=== PATIENT | male | born 1960 | race Caucasian/White ===

== ENCOUNTER 2024-05-28 21:09 | Inpatient (IN) | payer MEDICAID, OTHER, SELFPAY ==
[2024-05-28] VITALS (11 sets, daily range): BP systolic 138–157; BP diastolic 54–72; PULSE 99–105; RESP 18–25; TEMP 36.4–37.1; O2SAT 90–96; BMI 38.4
[2024-05-28 22:28] LABS: Add Manual Diff / Slide Review NO; Basophils Absolute Auto 100 /uL (0-100); Basophils Percent Auto 0.9 % (0-2); Eosinophils Absolute Auto 200 /uL (0-450); Eosinophils Percent Auto 2.8 % (2-4); Hemoglobin 5.3 g/dL (13.5-17.5); Lymphocytes Absolute Auto 800 /uL (1100-4500); Lymphocytes Percent Auto 11.2 % (25-40); Mean Corpuscular HGB Conc 28.3 % (30-36); Mean Corpuscular Hemoglobin 20.4 PG (26-34); Mean Corpuscular Volume 72.4 fL (80-100); Monocytes Absolute Auto 500 /uL (0-900); Monocytes Percent Auto 6.9 % (3-14); Neutrophils Absolute Auto 5400 /uL (1500-7000); Neutrophils Percent Auto 78.2 % (50-75); Platelet Count 468 X10^3/uL (150-400); Red Blood Cell Count 2.57 X10^6/uL (4.5-5.9); Red Cell Distribution Width 20.1 % (11.6-14.8); White Blood Cell Count 6.9 X10^3/uL (4.5-11.0)
[2024-05-28 22:29] LABS: Hematocrit 18.6 % (41-53)
[2024-05-28 22:30] LABS: Blood Urea Nitrogen 28 mg/dL (9-20); Calcium 8.8 mg/dL (8.4-10.2); Carbon Dioxide 28 mmol/L (22-32); Chloride 103 mmol/L (98-107); Estimated Glomerular Filt Rate 43 mL/min (>60); Glucose 166 mg/dL (80-110); HEMOLYSIS < 15 (0-50); Potassium 3.5 mmol/L (3.4-5.1); Sodium 135 mmol/L (137-145)
--- NOTE | 2024-05-28 22:34 | ED.RECABL ---
HPI - Recheck/Abnormal Lab/Rx General Chief Complaint: Recheck/Abnormal Lab/Rx Stated Complaint: hemogloubin low Time Seen by Provider: 05/28/24 22:11 Source: patient and family Mode of arrival: Ambulatory Limitations: no limitations History of Present Illness HPI narrative: Patient was a 63-year-old male. Not on anticoagulation. Has a history of chronic kidney disease. Went to the lab today in order to get blood drawn for an upcoming urology visit. Received a phone call stating that his hemoglobin and hematocrit were low and he needed to come to the emergency department. He does report that he is felt somewhat fatigued and weak and shortness of breath specifically on exertion for the past several months. He has been anemic in the past. Earlier this year he was admitted to an outside facility where he states that he had scopes without a specific source of bleeding found. He denies any black-colored stools, red colored stools, vomiting blood, blood in his urine. Related Data Allergies Allergy/AdvReac Type Severity Reaction Status Date / Time No Known Drug Allergies Allergy Verified 05/28/24 21:18 Review of Systems Review of Systems ROS Unobtainable: All systems reviewed & are unremarkable except as noted in HPI and below Patient History Social History Smoking Status: Never smoker Smoking Status: Never smoker Alcohol type: beer Exam Initial Vital Signs Initial Vital Signs: Vital Signs Temperature 98.7 F 05/28/24 21:18 Pulse Rate 103 H 05/28/24 21:18 Respiratory Rate 18 05/28/24 21:18 Blood Pressure 144/67 H 05/28/24 21:18 Pulse Oximetry 96 05/28/24 21:18 Oxygen Delivery Method Room Air 05/28/24 21:18 Const General: No ill appearing HENMT Head: normal to inspection and normocephalic Resp Effort & Inspection: no cough, not labored, no retractions and tachypneic Auscultation: clear to auscultation bilaterally Cardio Rate: tachycardic Rhythm: regular rhythm GI Inspection: normal to inspection and non-distended Palpation: soft and No tender Skin General: no rashes or lesions noted Neuro General: patient alert, patient awake and moves all extremities Extrem General: normal to inspection Course Orders Ordered: ED Orders 05/28/24 22:10 Basic Metabolic Panel Stat Complete Blood Count AUTO DIFF Stat Packed Cells Stat Type and Screen Stat 05/29/24 01:38 XR chest 1V Stat 05/29/24 01:44 Hemoglobin and Hematocrit Stat NT-proBNP (BNP-Adult 18+) Stat Troponin & CK Cardiac Panel Stat 05/29/24 01:45 EKG-12 Lead Stat 05/29/24 02:46 Education, smoking cessation ONGOING 05/29/24 02:55 Consult to General Surgery Stat 05/29/24 03:00 Basic Metabolic Panel DAILY Complete Blood Count AUTO DIFF DAILY Acetaminophen (Acetaminophen 325 Mg Tablet) 650 mg PO Q6H PRN PRN Reason: Fever/Mild Pain (1-3) Naloxone HCl (Naloxone 0.4 Mg/Ml Vial) 0.2 mg IV Q2MIN PRN PRN Reason: Opiate Reversal Pantoprazole Sodium (Pantoprazole 40 Mg Vial) 40 mg IV BID QUAN Discontinued Medications Furosemide (Furosemide 40 Mg/4 Ml Vial) 40 mg IV NOW ONE Stop: 05/29/24 02:57 Pantoprazole Sodium (Pantoprazole 40 Mg Vial) 40 mg IV NOW ONE Stop: 05/29/24 02:53 Vital Signs Vital signs: Vital Signs - 8 hr 05/28/24 21:18 05/28/24 22:20 05/28/24 22:21 Temperature 98.7 F Pulse Rate 103 H 102 H Respiratory Rate 18 25 H Blood Pressure 144/67 H Pulse Oximetry 96 90 L 91 Oxygen Delivery Method Room Air Room Air Room Air Oxygen Flow Rate 05/28/24 22:22 05/28/24 22:22 05/28/24 22:30 Temperature Pulse Rate 101 H Respiratory Rate Blood Pressure 138/63 140/63 Pulse Oximetry 91 Oxygen Delivery Method Room Air Oxygen Flow Rate 05/28/24 22:30 05/28/24 23:00 05/28/24 23:00 Temperature Pulse Rate 99 H 102 H Respiratory Rate 25 H 24 Blood Pressure 144/63 H Pulse Oximetry 94 96 Oxygen Delivery Method Nasal Cannula Nasal Cannula Oxygen Flow Rate 2 2 05/28/24 23:20 05/28/24 23:21 05/28/24 23:21 Temperature 98.5 F Pulse Rate 104 H 105 H Respiratory Rate 25 H Blood Pressure 157/72 H 157/72 H Pulse Oximetry 94 Oxygen Delivery Method Oxygen Flow Rate 05/28/24 23:30 05/28/24 23:30 05/28/24 23:39 Temperature 97.6 F Pulse Rate 104 H Respiratory Rate 24 23 Blood Pressure 139/54 L 142/63 H Pulse Oximetry 95 Oxygen Delivery Method Nasal Cannula Oxygen Flow Rate 2 05/28/24 23:42 05/29/24 00:00 05/29/24 00:01 Temperature Pulse Rate 103 H 98 H Respiratory Rate 22 Blood Pressure 135/61 Pulse Oximetry 94 92 Oxygen Delivery Method Nasal Cannula Oxygen Flow Rate 3 05/29/24 00:01 05/29/24 00:30 05/29/24 00:30 Temperature Pulse Rate 99 H 90 Respiratory Rate 21 Blood Pressure 147/63 H Pulse Oximetry 92 94 Oxygen Delivery Method Nasal Cannula Nasal Cannula Oxygen Flow Rate 3 3 05/29/24 01:00 05/29/24 01:01 05/29/24 01:01 Temperature Pulse Rate 76 88 Respiratory Rate 22 Blood Pressure 125/58 L Pulse Oximetry 92 93 Oxygen Delivery Method Nasal Cannula Oxygen Flow Rate 3 05/29/24 01:28 05/29/24 01:53 05/29/24 02:21 Temperature 98.7 F 98.6 F Pulse Rate 104 H 100 H Respiratory Rate 23 24 30 H Blood Pressure 136/61 124/56 L Pulse Oximetry 94 Oxygen Delivery Method Oximask Oxygen Flow Rate 3 05/29/24 02:25 05/29/24 02:41 Temperature 98.6 F 98.2 F Pulse Rate 100 H 96 H Respiratory Rate 30 H 26 H Blood Pressure 124/56 L 141/64 H Pulse Oximetry Oxygen Delivery Method Oxygen Flow Rate MDM - Recheck/Abnormal Lab/Rx Lab Data Attestation: I reviewed the patient's lab results. 05/29/24 01:44 05/28/24 22:10 Labs: Lab Results 05/28/24 05/29/24 Range/Units 22:10 01:44 WBC 6.9 (4.5-11.0) X10^3/uL RBC 2.57 L (4.5-5.9) X10^6/uL Hgb 5.3 L* 5.9 L* (13.5-17.5) g/dL Hct 18.6 L* 20.5 L* (41-53) % MCV 72.4 L (80-100) fL MCH 20.4 L (26-34) PG MCHC 28.3 L (30-36) % RDW 20.1 H (11.6-14.8) % Plt Count 468 H (150-400) X10^3/uL Neut % (Auto) 78.2 H (50-75) % Lymph % (Auto) 11.2 L (25-40) % [place] % (Auto) 6.9 (3-14) % Eos % (Auto) 2.8 (2-4) % Baso % (Auto) 0.9 (0-2) % Neut # (Auto) 5400 (5518-1155) /uL Lymph # (Auto) 800 L (4287-0265) /uL [place] # (Auto) 500 (0-900) /uL Eos # (Auto) 200 (0-450) /uL Baso # (Auto) 100 (0-100) /uL Platelet Estimate Increased on smear RBC Morphology See below Hypochromasia 2+ H Anisocytosis 2+ H Microcytosis 2+ H Macrocytosis 1+ H Sodium 135 L (137-145) mmol/L Potassium 3.5 (3.4-5.1) mmol/L Chloride 103 (98-107) mmol/L Carbon Dioxide 28 (22-32) mmol/L BUN 28 H (9-20) mg/dL Creatinine 1.75 H (0.66-1.25) mg/dL Estimated GFR 43 L (>60) mL/min BUN/Creatinine Ratio 16.0 (6-22) Glucose 166 H (80-110) mg/dL Calcium 8.8 (8.4-10.2) mg/dL Total Creatine Kinase 54 L (55-170) U/L Troponin I < 0.012 (0.01-0.034) ng/mL NT-Pro-B Natriuret Pep 848 H (<125) pg/mL Blood Type O Positive Antibody Screen Negative Crossmatch See Detail Imaging Data Chest x-ray: Radiologist's Impression: No acute cardiopulmonary abnormality ECG Data Attestation: I personally reviewed and interpreted this ECG as follows: Interpretation: Sinus tachycardia Ventricular rate of 101 Normal axis Normal QRS Normal QTC No ST T wave changes MDM Narrative Medical decision making narrative: Patient has no overt signs of bleeding. He was not had any melena. No hematochezia. No hematemesis. No hematuria. He was not on anticoagulation. Has been short of breath for the past several months. Received 1 unit of packed red blood cells. Still somewhat tachycardic and short of breath. Second unit ordered. He was not in overt heart failure. Chest x-ray shows no signs of pleural effusion or pneumonia. No indication for antibiotics. He was given a proton pump inhibitor. Patient is desatting into the 70s specifically with sleeping requiring oxygen by nasal cannula. I did discuss the case with hospitalist on-call who will admit for further evaluation and treatment. I did discuss the case with on-call for General surgery who would be available for consultation if needed. Discussed the need for admission with the patient's family. They expressed understanding and agreement as well. Discharge Plan Departure Patient Disposition: Admitted As Inpatient Clinical Impression: Anemia, Hypoxia Admit Date/Time: 05/29/24 02:56 Admit Provider: Hema Trevino
--- NOTE | 2024-05-28 22:34 | PC.NURSE ---
Patient's RR 25, patient unable to answer a full sentence without taking a break. Patient is pale. Oxygen sat 90% on RA. Patient placed on oxygen 2L nasal cannula, o2 sats improved to 94%
[2024-05-28 23:05] LABS: Anisocytosis 2+; Hypochromasia 2+; Macrocytosis 1+; Microcytosis 2+; Platelet Estimate Increased on smear
[2024-05-29] VITALS (34 sets, daily range): BP systolic 91–158; BP diastolic 43–69; PULSE 76–104; RESP 20–31; TEMP 36.3–37.1; O2SAT 90–97; BMI 38.4
--- NOTE | 2024-05-29 01:38 | DI.RAD.S_ITS ---
PROCEDURE: XR CHEST 1V INDICATIONS: SOB TECHNIQUE: One view of the chest was acquired. COMPARISON: None. FINDINGS: Surgical changes and devices: None. Lungs and pleura: Patchy bilateral atelectasis.. No pleural effusions or pneumothorax. Mediastinum: Mediastinal contours appear normal. Heart size is normal. Bones and chest wall: No suspicious bony lesions. Overlying soft tissues appear unremarkable. IMPRESSION: Patchy bilateral atelectasis. Dictated by: Noe Randhawa M.D. on 05/29/2024 at 8:30 Approved by: Noe Randhawa M.D. on 05/29/2024 at 8:31
--- NOTE | 2024-05-29 01:40 | PC.NURSE ---
This nurse notes pt is still tachycardic and tachypnic after 1 unit RBC has completed. Pt needing to be on 3L of oxygen on oximask to maintain sats at 94%. pt's RR is 24, breahting labored, unable to speak in full sentences. Dr. Sumner notified. Awaiting new orders.
[2024-05-29 01:56] LABS: Hematocrit 20.5 % (41-53); Hemoglobin 5.9 g/dL (13.5-17.5)
[2024-05-29 02:00] LABS: Creatine Kinase 54 U/L (55-170)
--- NOTE | 2024-05-29 02:03 | EKG_ITS ---
[address] [address] Test Date: 2024-05-29 Pat Name: Manuelito Sierra Department: [facility] Room: Gender: Male [employer]: JOVANI DEMETRIUS : 1960 Requested By: Order Number: [id number] Reading MD: Juan Mccormick Measurements Intervals [place] Rate: 101 P: 25 KS: 188 QRS: 10 QRSD: 98 T: 21 QT: 346 QTc: 448 Interpretive Statements Sinus tachycardia Electronically Signed On 05-29-2024 19:43:00 PST by Juan Mccormick
[2024-05-29 02:13] LABS: NT-proBNP (BNP-Adult 18+) 848 pg/mL (<125); Troponin I < 0.012 ng/mL (0.01-0.034)
[2024-05-29] MEDS: FUROSEMIDE 40 MG/4 ML VIAL IV (03:35)
[2024-05-29] MEDS: PANTOPRAZOLE 40 MG VIAL IV ×3 (03:44→20:26)
--- NOTE | 2024-05-29 04:18 | PC.NURSE ---
Addendum entered by Sarahy Menon R.N. 05/29/24 04:27: addendum to note at 0418 Patient transferred to room 223 with leukocyte reduced red blood cells running at 100ml/hr. Original Note: Patient transferred to room 223 with PRBC running at 100ml/hr
--- NOTE | 2024-05-29 04:20 | PC.NURSE ---
Pt arrived via stretcher to room 223. AOx3 with partner at bedside. 5L oximask sating 95%. Bases diminished. BLE edema +2. L wrist PIV with blood transfusing 100ml/hr. VS taken. Telemetry placed. Pt denies any n/v. Denies blood in stool. Baseline uses a quad cane, but sometimes uses WC at home. RUE flaccid, RLE weak. Dr Trevino notified pt has arrived and pending orders.
--- NOTE | 2024-05-29 06:32 | PM.HP.1 ---
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 Of note, the patient was in for lab today for a blood draw prior his upcoming nephrology visit. The patient receive a phone call afterward and was told that his hemoglobin was very low and instructed him to go to our ER. The patient reports that over the last few months he has been having fatigue and shortness of breath. The patient however denies any recent G.I. bleed denies any Melena or bright red blood rectum, chest pain, fever, chills, nausea, vomiting or diarrhea recently. Of note, the patient was admitted to [facility] in [place], [place] this November 2023 for severe anemia. There the patient's reported that he had an endoscopy but could did not show any source of GIB. of severe anemia with endoscopy but no source of bleeding was found. The patient was told to follow up with GI for a repeat Colonscopy and possible capsule study to investigate any GIB from small bowel but the patient states due to the holidays, this has not yet been done. In our emergency room, the patient was hemodynamically stable though was tachycardic. There was no active sign of bleeding per physician. Hemoglobin was 5.3 done as outpatient and 5.9 after 1 unit of pRBCs per our ER physician. patient BNPs was in the 800s, Cr 1.75. Note the chest x-ray was clear no sign of volume overload. Patient was given two units of blood and Lasix IV 40 mg times one. General surgery was consulted for back up if endoscopy/colonscopy is needed emergently. Our physician requested admission to monitor hemoglobin and for any bleeding. [facility] Social History household members: significant other Smoking Status: Never smoker alcohol intake: current Meds Home Medications and Allergies Home Medications Medication Instructions Recorded Confirmed Type amlodipine 10 mg tablet 10 mg PO DAILY 05/29/24 05/29/24 History aspirin 81 mg tablet 81 mg PO DAILY 05/29/24 05/29/24 History ferrous sulfate 325 mg (65 mg 325 mg PO DAILY 05/29/24 05/29/24 History iron) tablet metoprolol succinate 200 mg 200 mg PO DAILY 05/29/24 05/29/24 History tablet,extended release 24 hr torsemide 20 mg tablet 60 mg PO DAILY 05/29/24 05/29/24 History Allergies Allergy/AdvReac Type Severity Reaction Status Date / Time No Known Drug Allergies Allergy Verified 05/28/24 21:18 Review of Systems Review of Systems ROS: Yes All systems reviewed with the patient and are negative except as otherwise documented Exam Vital Signs (past 8 hours): - 05/28/24 23:00 05/28/24 23:00 05/28/24 23:20 Temperature 98.5 F Pulse Rate 102 H 104 H Respiratory Rate 24 25 H Blood Pressure 144/63 H 157/72 H Pulse Oximetry 96 Oxygen Delivery Method Nasal Cannula Oxygen Flow Rate 2 05/28/24 23:21 05/28/24 23:21 05/28/24 23:30 Temperature Pulse Rate 105 H Respiratory Rate 24 Blood Pressure 157/72 H 139/54 L Pulse Oximetry 94 Oxygen Delivery Method Oxygen Flow Rate 05/28/24 23:30 05/28/24 23:39 05/28/24 23:42 Temperature 97.6 F Pulse Rate 104 H 103 H Respiratory Rate 23 Blood Pressure 142/63 H Pulse Oximetry 95 94 Oxygen Delivery Method Nasal Cannula Oxygen Flow Rate 2 05/29/24 00:00 05/29/24 00:01 05/29/24 00:01 Temperature Pulse Rate 98 H 99 H Respiratory Rate 22 Blood Pressure 135/61 Pulse Oximetry 92 92 Oxygen Delivery Method Nasal Cannula Nasal Cannula Oxygen Flow Rate 3 3 05/29/24 00:30 05/29/24 00:30 05/29/24 01:00 Temperature Pulse Rate 90 76 Respiratory Rate 21 Blood Pressure 147/63 H Pulse Oximetry 94 92 Oxygen Delivery Method Nasal Cannula Nasal Cannula Oxygen Flow Rate 3 3 05/29/24 01:01 05/29/24 01:01 05/29/24 01:28 Temperature 98.7 F Pulse Rate 88 104 H Respiratory Rate 22 23 Blood Pressure 125/58 L 136/61 Pulse Oximetry 93 Oxygen Delivery Method Oxygen Flow Rate 05/29/24 01:53 05/29/24 02:00 05/29/24 02:19 Temperature Pulse Rate 101 H Respiratory Rate 24 29 H Blood Pressure 124/56 L Pulse Oximetry 94 92 Oxygen Delivery Method Oximask Oximask Oxygen Flow Rate 3 3 05/29/24 02:19 05/29/24 02:21 05/29/24 02:25 Temperature 98.6 F 98.6 F Pulse Rate 101 H 100 H 100 H Respiratory Rate 31 H 30 H 30 H Blood Pressure 124/56 L 124/56 L Pulse Oximetry 95 Oxygen Delivery Method Oximask Oxygen Flow Rate 3 05/29/24 02:30 05/29/24 02:41 05/29/24 02:43 Temperature 98.2 F Pulse Rate 101 H 96 H 96 H Respiratory Rate 29 H 26 H 24 Blood Pressure 141/64 H Pulse Oximetry 94 93 Oxygen Delivery Method Oximask Oxygen Flow Rate 3 05/29/24 02:43 05/29/24 03:00 05/29/24 03:10 Temperature Pulse Rate 99 H Respiratory Rate 22 Blood Pressure 141/64 H 158/65 H Pulse Oximetry 90 L Oxygen Delivery Method Oximask Oxygen Flow Rate 3 05/29/24 03:10 05/29/24 03:15 05/29/24 03:30 Temperature Pulse Rate 98 H 103 H Respiratory Rate 24 27 H Blood Pressure Pulse Oximetry 91 93 92 Oxygen Delivery Method Oximask Oximask Oximask Oxygen Flow Rate 4 5 5 05/29/24 03:31 05/29/24 03:31 05/29/24 04:00 Temperature Pulse Rate 104 H 101 H Respiratory Rate 27 H 26 H Blood Pressure 150/64 H Pulse Oximetry 93 Oxygen Delivery Method Oximask Oxygen Flow Rate 5 05/29/24 04:00 05/29/24 04:30 05/29/24 05:52 Temperature 97.9 F 97.5 F L Pulse Rate 97 H 90 Respiratory Rate 26 H 20 Blood Pressure 109/60 111/63 Pulse Oximetry 97 Oxygen Delivery Method Oximask Oxygen Flow Rate 5 Oxygen Delivery Method Oximask Oxygen Flow Rate 5 Narrative Exam Narrative: Physical Exam: GENERAL: The patient is not in any acute distressed. Awake and alert. on Oxygen mask HEENT: Nonicteric sclerae, PERRLA, EOMI. Oropharynx clear. Moist mucous membranes. Conjunctivae appear well perfused. HEART: Regular rate and rhythm without murmurs. No lower extremities edema. LUNGS: Clear to auscultation bilaterally. No wheezing, crackles or rhonchi ABDOMEN: Soft, positive bowel sounds, nontender. SKIN: No rash, no excessive bruising, petechiae, or purpura. NEUROLOGIC: AxO x 3. Known right sided weakness otehrwise Cranial nerves II-XII intact without motor/sensory deficit. Objective Labs 05/29/24 01:44 05/28/24 22:10 Labs: Laboratory Results - last 24 hr 05/28/24 05/29/24 22:10 01:44 WBC 6.9 RBC 2.57 L Hgb 5.3 L* 5.9 L* Hct 18.6 L* 20.5 L* MCV 72.4 L MCH 20.4 L MCHC 28.3 L RDW 20.1 H Plt Count 468 H Neut % (Auto) 78.2 H Lymph % (Auto) 11.2 L [place] % (Auto) 6.9 Eos % (Auto) 2.8 Baso % (Auto) 0.9 Neut # (Auto) 5400 Lymph # (Auto) 800 L [place] # (Auto) 500 Eos # (Auto) 200 Baso # (Auto) 100 Platelet Estimate Increased on smear RBC Morphology See below Hypochromasia 2+ H Anisocytosis 2+ H Microcytosis 2+ H Macrocytosis 1+ H Sodium 135 L Potassium 3.5 Chloride 103 Carbon Dioxide 28 BUN 28 H Creatinine 1.75 H Estimated GFR 43 L BUN/Creatinine Ratio 16.0 Glucose 166 H Calcium 8.8 Total Creatine Kinase 54 L Troponin I < 0.012 NT-Pro-B Natriuret Pep 848 H Blood Type O Positive Antibody Screen Negative Crossmatch See Detail Assessment & Plan Assessment & Plan narrative: Severe anemia requiring blood transfusion. Admit the patient to medical telemetry under observation. Hb 5.3. Status post two units of red blood cell orderd in the ER. Continue pantoprazole IV. As stated per HPI, patient had endoscopy in 12/04 without any source of bleeding found. Will continue to monitor for any active bleeding. General surgery is consulted for emergent endoscopy/colonscopy if needed. Pending report/chart from [place] in [facility]. Clear liquid diet. Monitor hemoglobin and transfuse further if needed. No patient did receive IV Lasix in the ER after blood transfusion due to elevate BNP and fluid retention due to CKD. IV PPI. History of CVA on ASA and known right sided deficit. Will monitor patient and if stable consider resuming ASA in AM. CKD stage IV report from [place]. Cr close to baseline. Cr today 1.75 and baseline around 1.5. Monitor for now and give lasix if needed. CALDERON. Currently on facemask O2. Note patient reports that he has not got a chance to get CPAP yet. DVT prophylaxis SCDs due to severe anemia. Code status is full code. Disposition likely home in one to two days if no sign of active bleeding and patient hemoglobin is stable. Time-Based Coding :: [TOTAL MINUTES] spent with patient and on the chart (including review of chart, obtaining history, exam, reviewing outside data, placing orders, documenting exam and treatment plan, and counseling patient) on [DATE].
[2024-05-29 07:23] LABS: Add Manual Diff / Slide Review NO; Basophils Absolute Auto 100 /uL (0-100); Basophils Percent Auto 0.9 % (0-2); Eosinophils Absolute Auto 200 /uL (0-450); Eosinophils Percent Auto 2.3 % (2-4); Hematocrit 24.6 % (41-53); Hemoglobin 7.1 g/dL (13.5-17.5); Lymphocytes Absolute Auto 800 /uL (1100-4500); Lymphocytes Percent Auto 10.9 % (25-40); Mean Corpuscular HGB Conc 28.9 % (30-36); Mean Corpuscular Volume 76.2 fL (80-100); Monocytes Absolute Auto 700 /uL (0-900); Monocytes Percent Auto 10.6 % (3-14); Neutrophils Absolute Auto 5300 /uL (1500-7000); Neutrophils Percent Auto 75.3 % (50-75); Platelet Count 437 X10^3/uL (150-400); Red Blood Cell Count 3.23 X10^6/uL (4.5-5.9); Red Cell Distribution Width 22.2 % (11.6-14.8); White Blood Cell Count 7.1 X10^3/uL (4.5-11.0)
[2024-05-29 07:33] LABS: Anisocytosis 2+; Poikilocytosis 1+
[2024-05-29 08:30] LABS: BUN Creatinine Ratio 16.3 (6-22); Blood Urea Nitrogen 27 mg/dL (9-20); Calcium 8.5 mg/dL (8.4-10.2); Carbon Dioxide 29 mmol/L (22-32); Chloride 104 mmol/L (98-107); Estimated Glomerular Filt Rate 46 mL/min (>60); Glucose 110 mg/dL (80-110); HEMOLYSIS 19 (0-50); Potassium 4.2 mmol/L (3.4-5.1); Sodium 137 mmol/L (137-145)
[2024-05-29] MEDS: FERROUS SULFATE 325 MG TABLET PO (08:53)
[2024-05-29] MEDS: INFLUENZA VACCINE QIV 0.5 ML SYRINGE IM (08:53)
--- NOTE | 2024-05-29 10:38 | PM.CN ---
History of Present Illness Consult details Date Patient Seen: 05/29/24 Time Patient Seen: 10:38 Chief complaint: hemogloubin low Reason for consult: 63-year-old white male with suspected GI bleed Requesting provider: Juan Mccormick Narrative: This is a 63-year-old white male with significant comorbidities of obesity, renal failure, heart failure who has had workup for a GI bleed over the last 6 months at least. It seems that he had an EGD and was supposed to have follow-up with Gastroenterology which we can not find records of an care everywhere. The patient is somnolent and unable to provide reliable history. He presented with a hemoglobin of 5 and came up somewhat appropriately to 7 after 2 units of blood. His heart rate is in the 90s and his systolic pressure is 91. Meds Home Medications and Allergies Home Medications Medication Instructions Recorded Confirmed Type amlodipine 10 mg tablet 10 mg PO DAILY 05/29/24 05/29/24 History aspirin 81 mg tablet 81 mg PO DAILY 05/29/24 05/29/24 History ferrous sulfate 325 mg (65 mg 325 mg PO DAILY 05/29/24 05/29/24 History iron) tablet metoprolol succinate 200 mg 200 mg PO DAILY 05/29/24 05/29/24 History tablet,extended release 24 hr torsemide 20 mg tablet 60 mg PO DAILY 05/29/24 05/29/24 History Allergies Allergy/AdvReac Type Severity Reaction Status Date / Time No Known Drug Allergies Allergy Verified 05/28/24 21:18 Review of Systems Review of Systems ROS: Yes unobtainable due to mental status Exam Vital Signs (past 8 hours): - 05/29/24 02:41 05/29/24 02:43 05/29/24 02:43 Temperature 98.2 F Pulse Rate 96 H 96 H Respiratory Rate 26 H 24 Blood Pressure 141/64 H 141/64 H Pulse Oximetry 93 Oxygen Delivery Method Oximask Oxygen Flow Rate 3 Fraction of Inspired Oxygen 05/29/24 03:00 05/29/24 03:10 05/29/24 03:10 Temperature Pulse Rate 99 H 98 H Respiratory Rate 22 24 Blood Pressure 158/65 H Pulse Oximetry 90 L 91 Oxygen Delivery Method Oximask Oximask Oxygen Flow Rate 3 4 Fraction of Inspired Oxygen 05/29/24 03:15 05/29/24 03:30 05/29/24 03:31 Temperature Pulse Rate 103 H 104 H Respiratory Rate 27 H 27 H Blood Pressure Pulse Oximetry 93 92 93 Oxygen Delivery Method Oximask Oximask Oximask Oxygen Flow Rate 5 5 5 Fraction of Inspired Oxygen 05/29/24 03:31 05/29/24 04:00 05/29/24 04:00 Temperature 97.9 F Pulse Rate 101 H 97 H Respiratory Rate 26 H 26 H Blood Pressure 150/64 H 109/60 Pulse Oximetry 97 Oxygen Delivery Method Oxygen Flow Rate 5 Fraction of Inspired Oxygen 05/29/24 04:30 05/29/24 05:32 05/29/24 05:52 Temperature 97.5 F L Pulse Rate 89 90 Respiratory Rate 24 20 Blood Pressure 111/63 Pulse Oximetry 96 Oxygen Delivery Method Oximask Oximask Oxygen Flow Rate 4.5 Fraction of Inspired Oxygen 05/29/24 08:00 05/29/24 08:50 05/29/24 10:04 Temperature 97.7 F Pulse Rate 98 H 99 H Respiratory Rate 22 Blood Pressure 129/68 91/60 Pulse Oximetry 92 92 Oxygen Delivery Method Nasal Cannula Oxygen Flow Rate 5 4.5 Fraction of Inspired Oxygen 38 Fraction of Inspired Oxygen 38 SaO2/FiO2 Ratio 242 Oxygen Delivery Method Nasal Cannula Oxygen Flow Rate 4.5 Narrative Exam Narrative: Gen: NAD, sitting comfortably in bed, somnolent HEENT: Sclera are anicteric, head is normocephalic and atraumatic, trachea is midline. CV: RRR, no JVD Resp: clear to auscultation bilaterally, equal chest wall movement bilaterally Abd: soft, nontender, normoactive bowel sounds Ext: no edema, full range of motion Neuro: Cranial nerves II-XII grossly intact, no focal deficits Skin: No erythema or ecchymosis Objective Labs 05/29/24 07:12 05/29/24 07:12 Labs: Laboratory Results - last 24 hr 05/28/24 05/29/24 05/29/24 22:10 01:44 07:12 WBC 6.9 7.1 RBC 2.57 L 3.23 L Hgb 5.3 L* 5.9 L* 7.1 L Hct 18.6 L* 20.5 L* 24.6 L MCV 72.4 L 76.2 L D MCH 20.4 L 22.0 L MCHC 28.3 L 28.9 L RDW 20.1 H 22.2 H Plt Count 468 H 437 H Neut % (Auto) 78.2 H 75.3 H Lymph % (Auto) 11.2 L 10.9 L [place] % (Auto) 6.9 10.6 Eos % (Auto) 2.8 2.3 Baso % (Auto) 0.9 0.9 Neut # (Auto) 5400 5300 Lymph # (Auto) 800 L 800 L [place] # (Auto) 500 700 Eos # (Auto) 200 200 Baso # (Auto) 100 100 Platelet Estimate Increased on smear RBC Morphology See below Not Reportable Hypochromasia 2+ H Poikilocytosis 1+ H Anisocytosis 2+ H 2+ H Microcytosis 2+ H Macrocytosis 1+ H Sodium 135 L 137 Potassium 3.5 4.2 Chloride 103 104 Carbon Dioxide 28 29 BUN 28 H 27 H Creatinine 1.75 H 1.66 H Estimated GFR 43 L 46 L BUN/Creatinine Ratio 16.0 16.3 Glucose 166 H 110 Calcium 8.8 8.5 Total Creatine Kinase 54 L Troponin I < 0.012 NT-Pro-B Natriuret Pep 848 H Blood Type O Positive Antibody Screen Negative Crossmatch See Detail PFSH Social History household members: significant other Tobacco & Substance Use Smoking Status: Never smoker alcohol intake: current Assessment & Plan Assessment and plan (1) Acute blood loss anemia: Status: Acute Assessment & Plan narrative: We do not have ongoing evidence of blood loss. The anemia may be secondary to his renal disease. If he continues to bleed in his able to tolerate a bowel prep, we could perform an EGD and a colonoscopy here. However, that is the limitations of our ability at this facility. If he requires IR embolization, push enteroscopy, or capsule endoscopy he will need to be transferred to a higher level of care. Time-Based Coding :: [TOTAL MINUTES] spent with patient and on the chart (including review of chart, obtaining history, exam, reviewing outside data, placing orders, documenting exam and treatment plan, and counseling patient) on [DATE].
--- NOTE | 2024-05-29 10:49 | PC.NURSE ---
This morning BP noted at 91/60 with HR 99. Patient oriented and conversant but reports feeling very fatigued and sleepy, and frequently falling asleep during our conversation. Morning metoprolol and torsemide held due decreased BP, Dr. Mccormick notified. No new orders at this time. Continue to monitor.
[2024-05-29 15:27] LABS: Hematocrit 22.9 % (41-53)
[2024-05-29 15:28] LABS: Hemoglobin 6.7 g/dL (13.5-17.5)
--- NOTE | 2024-05-29 17:36 | P.HP_ITS ---
History of Present Illness History of Present Illness Date Patient Seen: 05/29/24 Time Patient Seen: 17:37 Chief complaint: hemogloubin low Narrative: This is a 63 year old male with PMH of ADPKD with stage IV CKD per nephrology documentation, left hemorrhagic stroke in 2012 with evacuation and residual R weakness who was referred to the ER today for a low Hg at an outpatient draw. He had an admission to [facility] in November 2023 (discharged 11/22) where he was initially admitted with hyperkalemia, but ultimately found to have probable GI Bleed. EGD showed gastritis and h/h stabilized per discharge summary. He was to follow up outpatient with GI for repeat EGD and colonoscopy but I cannot find a record of this and patient, though possibly confused, also states he never had a procedure outside of the hospital. [facility] Social History household members: significant other Smoking Status: Never smoker alcohol intake: current Meds Home Medications and Allergies Home Medications Medication Instructions Recorded Confirmed Type amlodipine 10 mg tablet 10 mg PO DAILY 05/29/24 05/29/24 History aspirin 81 mg tablet 81 mg PO DAILY 05/29/24 05/29/24 History ferrous sulfate 325 mg (65 mg 325 mg PO DAILY 05/29/24 05/29/24 History iron) tablet metoprolol succinate 200 mg 200 mg PO DAILY 05/29/24 05/29/24 History tablet,extended release 24 hr torsemide 20 mg tablet 60 mg PO DAILY 05/29/24 05/29/24 History Allergies Allergy/AdvReac Type Severity Reaction Status Date / Time No Known Drug Allergies Allergy Verified 05/28/24 21:18 Review of Systems Review of Systems Narrative: All other systems reviewed with the patient and are negative unless otherwise stated. Exam Vital Signs (past 8 hours): - 05/29/24 10:04 05/29/24 12:00 05/29/24 17:22 Temperature 97.5 F L 97.5 F L Pulse Rate 87 89 Respiratory Rate 22 24 Blood Pressure 124/53 L 123/57 L Pulse Oximetry 92 95 Oxygen Delivery Method Nasal Cannula Oxygen Flow Rate 4.5 3.5 Fraction of Inspired Oxygen 38 Fraction of Inspired Oxygen 38 SaO2/FiO2 Ratio 242 Oxygen Delivery Method Nasal Cannula Oxygen Flow Rate 3.5 Narrative Exam Narrative: Gen: lethargic, pale, no acute distress, falls asleep easily (improved later in the day after blood) CV: RRR no m/r/g Pulm: CTA B/l Abd: S NT ND Ext: no edema, R sided weakness compared to left Objective Labs 05/29/24 15:15 05/29/24 07:12 Labs: Laboratory Results - last 24 hr 05/28/24 05/29/24 05/29/24 22:10 01:44 07:12 WBC 6.9 7.1 RBC 2.57 L 3.23 L Hgb 5.3 L* 5.9 L* 7.1 L Hct 18.6 L* 20.5 L* 24.6 L MCV 72.4 L 76.2 L D MCH 20.4 L 22.0 L MCHC 28.3 L 28.9 L RDW 20.1 H 22.2 H Plt Count 468 H 437 H Neut % (Auto) 78.2 H 75.3 H Lymph % (Auto) 11.2 L 10.9 L [place] % (Auto) 6.9 10.6 Eos % (Auto) 2.8 2.3 Baso % (Auto) 0.9 0.9 Neut # (Auto) 5400 5300 Lymph # (Auto) 800 L 800 L [place] # (Auto) 500 700 Eos # (Auto) 200 200 Baso # (Auto) 100 100 Platelet Estimate Increased on smear RBC Morphology See below Not Reportable Hypochromasia 2+ H Poikilocytosis 1+ H Anisocytosis 2+ H 2+ H Microcytosis 2+ H Macrocytosis 1+ H Sodium 135 L 137 Potassium 3.5 4.2 Chloride 103 104 Carbon Dioxide 28 29 BUN 28 H 27 H Creatinine 1.75 H 1.66 H Estimated GFR 43 L 46 L BUN/Creatinine Ratio 16.0 16.3 Glucose 166 H 110 Calcium 8.8 8.5 Total Creatine Kinase 54 L Troponin I < 0.012 NT-Pro-B Natriuret Pep 848 H Blood Type O Positive Antibody Screen Negative Crossmatch See Detail 05/29/24 15:15 WBC RBC Hgb 6.7 L* Hct 22.9 L MCV MCH MCHC RDW Plt Count Neut % (Auto) Lymph % (Auto) [place] % (Auto) Eos % (Auto) Baso % (Auto) Neut # (Auto) Lymph # (Auto) [place] # (Auto) Eos # (Auto) Baso # (Auto) Platelet Estimate RBC Morphology Hypochromasia Poikilocytosis Anisocytosis Microcytosis Macrocytosis Sodium Potassium Chloride Carbon Dioxide BUN Creatinine Estimated GFR BUN/Creatinine Ratio Glucose Calcium Total Creatine Kinase Troponin I NT-Pro-B Natriuret Pep Blood Type Antibody Screen Crossmatch Assessment & Plan Assessment & Plan narrative: 1. Acute blood loss anemia with acute metabolic encephalopathy - confused earlier in the day, improved after transfusion, suspect related to anemia, now improved after 3rd U PRBC - continue to monitor h/h q8 today - discussed with surgery earlier, if continued improvement can likely prep tomorrow with need for EGD/colonoscopy possibly on 05/30. - Trend: Hg 5.9 > 2U PRBC > 7.1 > 6.7 > 1U PRBC. Next draw this PM. - recent admission to [facility] in [place], had an EGD w/ gastritis. Was supposed to follow up with GI but never did for further evaluation. 2. Presumed GI bleeding - continue IV PPI BID for now 3. CKD stage IV - continue to monitor renal function, his Cr actually appears improved at 1.66 from recent outpatient labs(low 2s per nephrology notes) 4. h/o L hemorrhagic stroke with residual R hemiparesis 5. HTN hold home amlodipine, torsemide (for leg edema). - continuing home metoprolol 200. After transfusion his BP is improved at SBP 133. Code: Full, surrogate is patient's partner Rocío SCD for DVT ppx. I have utilized all available immediate resources to obtain, update, or review the patient's current medications. Dispo: patient admitted under inpatient status. Unclear if will be able to discharge home or possible SNF, will have PT/OT evaluations. Additional history obtained via discussions with the ER provider. These discussions contributed to the creation of the above assessment and plan. I have reviewed patient's presenting documentation, labs, and imaging personally. Time-Based Coding :: [TOTAL MINUTES] spent with patient and on the chart (including review of chart, obtaining history, exam, reviewing outside data, placing orders, documenting exam and treatment plan, and counseling patient) on [DATE].
--- NOTE | 2024-05-29 17:48 | PC.NURSE ---
1748 15min VSS, rate increased to 125cc/hr on blood
[2024-05-29 23:55] LABS: Hematocrit 26.5 % (41-53)
[2024-05-30] VITALS (9 sets, daily range): BP systolic 127–142; BP diastolic 48–64; PULSE 72–91; RESP 18–23; TEMP 36.2–36.6; O2SAT 91–96
[2024-05-30 05:15] LABS: Add Manual Diff / Slide Review NO; Basophils Absolute Auto 100 /uL (0-100); Basophils Percent Auto 0.9 % (0-2); Eosinophils Absolute Auto 200 /uL (0-450); Eosinophils Percent Auto 3.1 % (2-4); Hematocrit 26.8 % (41-53); Hemoglobin 8.1 g/dL (13.5-17.5); Lymphocytes Absolute Auto 800 /uL (1100-4500); Lymphocytes Percent Auto 12.1 % (25-40); Mean Corpuscular HGB Conc 30.4 % (30-36); Mean Corpuscular Hemoglobin 23.7 PG (26-34); Mean Corpuscular Volume 78.1 fL (80-100); Monocytes Absolute Auto 600 /uL (0-900); Monocytes Percent Auto 9.4 % (3-14); Neutrophils Absolute Auto 5100 /uL (1500-7000); Neutrophils Percent Auto 74.5 % (50-75); Platelet Count 412 X10^3/uL (150-400); Red Blood Cell Count 3.43 X10^6/uL (4.5-5.9); Red Cell Distribution Width 22.1 % (11.6-14.8); White Blood Cell Count 6.9 X10^3/uL (4.5-11.0)
[2024-05-30 05:30] LABS: Alanine Aminotransferase 12 IU/L (<50); Albumin 3.2 g/dL (3.5-5.0); Albumin Globulin Ratio 1.3 (1.0-2.8); Alkaline Phosphatase 86 U/L (38-126); Aspartate Aminotransferase 16 IU/L (17-59); BUN Creatinine Ratio 11.9 (6-22); Bilirubin Total 0.7 mg/dL (0.2-1.3); Blood Urea Nitrogen 19 mg/dL (9-20); Calcium 8.4 mg/dL (8.4-10.2); Carbon Dioxide 28 mmol/L (22-32); Chloride 104 mmol/L (98-107); Estimated Glomerular Filt Rate 48 mL/min (>60); Globulin 2.4 g/dL (1.7-4.1); Glucose 101 mg/dL (80-110); HEMOLYSIS < 15 (0-50); Potassium 3.7 mmol/L (3.4-5.1); Sodium 135 mmol/L (137-145); Total Protein 5.6 g/dL (6.3-8.2)
[2024-05-30 05:49] LABS: Anisocytosis 2+; Microcytosis 1+; Platelet Estimate Increased on smear; Poikilocytosis 1+
--- NOTE | 2024-05-30 07:30 | CM.DANOTE ---
Initial DCP Assessment Visit Note Reviewed EMR and team rounds for status updates. Met with pt and his Significant Other to introduce self and role, pt was found to be very drowsy, unable to focus his eyes or engage in conversation. NOC TECHNICIAN met primarily with his SO, Rocío, in obtaining medical/psychosocial hx. Pt is typically modified independent with a cane, and often uses a wheelchair for mobility. He is disabled due to kidney disease, depends on Rocío for most of the household, shopping, transportation, and care coordination needs. She will transport him home once he's medically cleared for d/c. Payor: [facility] PCP: Dr. Evans Winters Pt is a 63 year-old M with a hx of chronic kidney disease and anemia. He had a blood draw in the [facility] lab earlier yesterday and was found to have a very low H&H, so he was directed to the ED for further evaluation. He shared he felt weak, fatigued, and SOB for several months. He was found to be hypoxic and desatting into the 70's, was started on O2 and required transfusion of 2-units of blood before he stabilized. He had a surgical consult, however at that time there was no further evidence of blood loss. He remains very somnolent, and falls asleep several times while being engaged by staff/during care. DCP will continue to monitor for final d/c assistance and resource needs. Discharge Planning/Care Management CM Discharge Assessment Start: 05/29/24 15:13 Freq: Status: Active Protocol: Document 05/29/24 15:13 DPL (Rec: 05/29/24 15:21 DPL [id number]) Discharge Planning Assessment Assigned [employer] Supervisor KENYETTA Peñaloza Advance Directives? No History Provided By Patient,Significant Other, Medical Record Has Patient been admitted in last 30 No days? Prior Living Arrangements House Household Members significant other Type of transporation used prior to Relies on Others admit Independent with ADL's No: modified independent with a cane, walker, and cg assist Is patient alert and oriented? No: pt is somnolent and not able to track Needs Assistance With Bathing,Grooming,Meal Prep, Managing Medications,Home Chores / Shopping Caregiver for Another No Comment OP Nephrology Comment Pending PT/OT evals and recommendations. Barriers to Discharge No Discharge Plan Home Transportation Arrangement SORocío Additional Comment Pending Whiteboard Updated in Patient Room with Yes name and ext. # of [employer] Supervisor Review Status In Process Please Provide Date Initial DC 05/29/24 Assessment Was Performed
--- NOTE | 2024-05-30 08:21 | P.PN_ITS ---
Subjective Subjective Interval history: Summary: 63-year-old male with a recent admission to [facility] for anemia. There, he underwent EGD revealing gastritis. Presented here with blood loss anemia and concern for GI bleed. He was on PPI and had 3 units of blood. The patient will likely prep for endoscopy on . S: He is doing well. No nausea, vomiting, or abdominal pain. No bowel movement. Exam Vital Signs (past 8 hours): - 05/30/24 00:50 05/30/24 01:25 05/30/24 04:00 Temperature 97.9 F 97.9 F Pulse Rate 91 H 90 Respiratory Rate 23 18 Blood Pressure 135/50 L 130/61 Pulse Oximetry 94 93 Oxygen Delivery Method Nasal Cannula Oxygen Flow Rate 2 2 2 Fraction of Inspired Oxygen 28 Fraction of Inspired Oxygen 28 SaO2/FiO2 Ratio 242 Oxygen Delivery Method Nasal Cannula Oxygen Flow Rate 2 Narrative Exam Narrative: NAD, alert and oriented. Fluent speech. Lungs are clear, normal rate and effort. Heart is regular, no murmur gallop or rub. Abdomen is soft, non distended. Extremities are notable for gross edema. Objective Labs 05/30/24 04:06 05/30/24 04:06 Labs: Laboratory Results - last 24 hr 05/28/24 05/29/24 05/29/24 22:10 07:12 15:15 WBC RBC Hgb 6.7 L* Hct 22.9 L MCV MCH MCHC RDW Plt Count Neut % (Auto) Lymph % (Auto) [place] % (Auto) Eos % (Auto) Baso % (Auto) Neut # (Auto) Lymph # (Auto) [place] # (Auto) Eos # (Auto) Baso # (Auto) Platelet Estimate RBC Morphology Poikilocytosis Anisocytosis Microcytosis Sodium 137 Potassium 4.2 Chloride 104 Carbon Dioxide 29 BUN 27 H Creatinine 1.66 H Estimated GFR 46 L BUN/Creatinine Ratio 16.3 Glucose 110 Calcium 8.5 Magnesium Total Bilirubin AST ALT Alkaline Phosphatase Total Protein Albumin Globulin Albumin/Globulin Ratio Blood Type O Positive Antibody Screen Negative Crossmatch See Detail 05/29/24 05/30/24 23:47 04:06 WBC 6.9 RBC 3.43 L Hgb 8.0 L 8.1 L Hct 26.5 L 26.8 L MCV 78.1 L MCH 23.7 L MCHC 30.4 RDW 22.1 H Plt Count 412 H Neut % (Auto) 74.5 Lymph % (Auto) 12.1 L [place] % (Auto) 9.4 Eos % (Auto) 3.1 Baso % (Auto) 0.9 Neut # (Auto) 5100 Lymph # (Auto) 800 L [place] # (Auto) 600 Eos # (Auto) 200 Baso # (Auto) 100 Platelet Estimate Increased on smear RBC Morphology See below Poikilocytosis 1+ H Anisocytosis 2+ H Microcytosis 1+ H Sodium 135 L Potassium 3.7 Chloride 104 Carbon Dioxide 28 BUN 19 Creatinine 1.59 H Estimated GFR 48 L BUN/Creatinine Ratio 11.9 Glucose 101 Calcium 8.4 Magnesium 2.0 Total Bilirubin 0.7 AST 16 L ALT 12 Alkaline Phosphatase 86 Total Protein 5.6 L Albumin 3.2 L Globulin 2.4 Albumin/Globulin Ratio 1.3 Blood Type Antibody Screen Crossmatch [facility] Social History household members: significant other Smoking Status: Never smoker alcohol intake: current Assessment & Plan Assessment & Plan narrative: 1. Acute blood loss anemia, present on admission and improved. - continue to monitor h/h q8 today - discussed with surgery earlier, if continued improvement can likely prep tomorrow with need for EGD/colonoscopy possibly on 05/30. - Trend: Hg 5.9 > 2U PRBC > 7.1 > 6.7 > 1U PRBC. Next draw this PM. - recent admission to [facility] in [place], had an EGD w/ gastritis. Was supposed to follow up with GI but never did for further evaluation. 2. Presumed GI bleeding, present on admission and active. - continue IV PPI BID for now 3. CKD stage IV, present on admission and stable. - continue to monitor renal function, his Cr actually appears improved at 1.66 from recent outpatient labs(low 2s per nephrology notes) 4. h/o L hemorrhagic stroke with residual R hemiparesis, present on admission and stable. 5. HTN hold home amlodipine, torsemide (for leg edema). Present on admission and active. - continuing home metoprolol 200. After transfusion his BP is improved at SBP 133. 6. Acute metabolic encephalopathy, present on admission and improved. PLAN: Discussed with Dr. Winters, anticipate a prep for colonoscopy and upper endoscopy tomorrow. We will start GoLYTELY today and monitor hemoglobin Q 8 hours. DAVID: 05/31 Code: Full, surrogate is patient's partner Rocío. They live in [place]. SCD for DVT ppx. Time-Based Coding :: [TOTAL MINUTES] spent with patient and on the chart (including review of chart, obtaining history, exam, reviewing outside data, placing orders, documenting exam and treatment plan, and counseling patient) on [DATE].
[2024-05-30] MEDS: TORSEMIDE 10 MG TABLET 60 MG PO (08:34)
[2024-05-30] MEDS: METOPROLOL ER 50 MG TABLET 200 MG PO (08:34)
[2024-05-30] MEDS: FERROUS SULFATE 325 MG TABLET PO (08:35)
[2024-05-30] MEDS: PANTOPRAZOLE 40 MG VIAL IV ×2 (08:35→20:47)
--- NOTE | 2024-05-30 11:39 | P.PN_ITS ---
Subjective Subjective Date Patient Seen: 05/30/24 Time Patient Seen: 11:40 Interval history: Patient continues to be anemic requiring transfusions. He is hemodynamically stable. He has not having bloody, dark or tarry bowel movements. Exam Vital Signs (past 8 hours): - 05/30/24 04:00 05/30/24 08:00 05/30/24 08:34 Temperature 97.9 F Pulse Rate 90 90 Respiratory Rate 18 Blood Pressure 130/61 130/61 Pulse Oximetry 93 94 Oxygen Delivery Method Room Air Oxygen Flow Rate 2 0 05/30/24 08:35 Temperature 97.2 F L Pulse Rate 89 Respiratory Rate 19 Blood Pressure 127/57 L Pulse Oximetry 92 Oxygen Delivery Method Oxygen Flow Rate 2 Fraction of Inspired Oxygen 28 SaO2/FiO2 Ratio 242 Oxygen Delivery Method Room Air Oxygen Flow Rate 2 Narrative Exam Narrative: Gen: NAD, sitting comfortably in bed, appears well HEENT: Sclera are anicteric, head is normocephalic and atraumatic, trachea is midline. CV: RRR, no JVD Resp: clear to auscultation bilaterally, equal chest wall movement bilaterally Abd: soft, nontender, normoactive bowel sounds Ext: no edema, full range of motion Neuro: Cranial nerves II-XII grossly intact, no focal deficits Skin: No erythema or ecchymosis Objective Labs 05/30/24 04:06 05/30/24 04:06 Labs: Laboratory Results - last 24 hr 05/28/24 05/29/24 05/29/24 22:10 15:15 23:47 WBC RBC Hgb 6.7 L* 8.0 L Hct 22.9 L 26.5 L MCV MCH MCHC RDW Plt Count Neut % (Auto) Lymph % (Auto) [place] % (Auto) Eos % (Auto) Baso % (Auto) Neut # (Auto) Lymph # (Auto) [place] # (Auto) Eos # (Auto) Baso # (Auto) Platelet Estimate RBC Morphology Poikilocytosis Anisocytosis Microcytosis Sodium Potassium Chloride Carbon Dioxide BUN Creatinine Estimated GFR BUN/Creatinine Ratio Glucose Calcium Magnesium Total Bilirubin AST ALT Alkaline Phosphatase Total Protein Albumin Globulin Albumin/Globulin Ratio Blood Type O Positive Antibody Screen Negative Crossmatch See Detail 05/30/24 04:06 WBC 6.9 RBC 3.43 L Hgb 8.1 L Hct 26.8 L MCV 78.1 L MCH 23.7 L MCHC 30.4 RDW 22.1 H Plt Count 412 H Neut % (Auto) 74.5 Lymph % (Auto) 12.1 L [place] % (Auto) 9.4 Eos % (Auto) 3.1 Baso % (Auto) 0.9 Neut # (Auto) 5100 Lymph # (Auto) 800 L [place] # (Auto) 600 Eos # (Auto) 200 Baso # (Auto) 100 Platelet Estimate Increased on smear RBC Morphology See below Poikilocytosis 1+ H Anisocytosis 2+ H Microcytosis 1+ H Sodium 135 L Potassium 3.7 Chloride 104 Carbon Dioxide 28 BUN 19 Creatinine 1.59 H Estimated GFR 48 L BUN/Creatinine Ratio 11.9 Glucose 101 Calcium 8.4 Magnesium 2.0 Total Bilirubin 0.7 AST 16 L ALT 12 Alkaline Phosphatase 86 Total Protein 5.6 L Albumin 3.2 L Globulin 2.4 Albumin/Globulin Ratio 1.3 Blood Type Antibody Screen Crossmatch [facility] Social History household members: significant other Smoking Status: Never smoker alcohol intake: current Assessment & Plan Assessment and plan (1) Acute blood loss anemia: Status: Acute Assessment & Plan narrative: We do not have ongoing evidence of blood loss. The anemia may be secondary to his renal disease. Because he continues to require transfusions and is now able to tolerate a bowel prep, we could perform an EGD and a colonoscopy here tomorrow. Bowel prep ordered. Clear liquid diet today. Patient presents for esophagogastroduodenoscopy and colonoscopy for anemia. Risks, benefits, alternatives to colonoscopy explained, including but not limited to bowel perforation or other serious complication requiring surgery at less than 1 in 5000 colonoscopies, abdominal pain, cramping or bleeding and less than 1% of colonoscopies, and the chances that we find a diagnosis that would require further intervention of about 2%. Patient agrees to proceed. Time-Based Coding :: [TOTAL MINUTES] spent with patient and on the chart (including review of chart, obtaining history, exam, reviewing outside data, placing orders, documenting exam and treatment plan, and counseling patient) on [DATE].
[2024-05-30 13:02] LABS: Hemoglobin 8.7 g/dL (13.5-17.5)
[2024-05-30] MEDS: PEG3350/SOD SULF,BICARB,CL/KCL 4,000 ML SOLUTION 2000 ML PO (18:15)
[2024-05-30] MEDS: BISACODYL 5 MG TABLET PO (18:15)
[2024-05-30 22:12] LABS: Hematocrit 28.2 % (41-53); Hemoglobin 8.7 g/dL (13.5-17.5)
[2024-05-31] VITALS (40 sets, daily range): BP systolic 99–144; BP diastolic 44–70; PULSE 48–93; RESP 12–30; TEMP 31–36.6; O2SAT 88–98
--- NOTE | 2024-05-31 | PATH_ITS ---
[facility] Accession Number: [id number] No. of containers..02 Tissue . 01 Material submitted: . PART A: stomach - ANTRUM PART B: colon - RIGHT COLON MASS . 01 Diagnosis: A. Stomach, antrum, biopsy: - Antral gastric mucosa with no histologic abnormalities. - No H. Pylori like organisms identified (on the H/E- stained sections). - Negative for gastritis, intestinal metaplasia, dysplasia, or malignancy. -- B. Colon mass, right, biopsy: - Ulcerated dysplastic mucosa with marked inflammation, see comment. ---- Comment for part B: Histologic examination of right colon mass shows small superficial ulcerated colonic mucosa with adenomatous dysplastic features and marked inflammation, there is occasional dysplastic glands within the lamina propria with marked inflammation and fibroblastic reaction concerning but not diagnostic for invasive adenocarcinoma, no high-grade dysplastic features seen, therefore additional biopsy from viable areas of the colonic mass is recommended for definitive diagnosis. Correlation with colonoscopy imaging is required. I attempted to communicate these findings to Dr. Winters, but no success. Biopsy of the colonic mass was reviewed by Dr. Rivas and Dr. Pierson and both pathologists agreed with the above findings. [facility] 06/05/2024 1605 [facility] . 01 Electronically signed: . Tawfeq MD Isabell, Pathologist NPI- [id number] . 01 Gross description: . Part A: ANTRUM: Received in formalin are 2 fragment(s) of polanco, soft tissue measuring 0.2 x 0.2 x 0.1 cm to 0.3 x 0.2 x 0.1 cm submitted entirely in 1 cassette(s) Part B: RIGHT COLON MASS: Received in formalin are 3 fragment(s) of polanco, soft tissue measuring 0.1 x 0.1 x 0.1 cm to 0.3 x 0.2 x 0.2 cm submitted entirely in 1 cassette(s) /GISSEL 06/01/[address] [place] [address] . Pathologist provided ICD-10: D64.9 . 01 CPT . 755634, 269408 Specimen Comment: A courtesy copy of this report has been sent to [facility] Pathology Performed at: [address] [facility], [place], [place] [id number] MD Harish Rivas MD Phone: [phone]
[2024-05-31 05:13] LABS: Add Manual Diff / Slide Review NO; Basophils Absolute Auto 0 /uL (0-100); Basophils Percent Auto 0.6 % (0-2); Eosinophils Absolute Auto 200 /uL (0-450); Eosinophils Percent Auto 2.6 % (2-4); Hematocrit 27.7 % (41-53); Hemoglobin 8.6 g/dL (13.5-17.5); Lymphocytes Absolute Auto 600 /uL (1100-4500); Lymphocytes Percent Auto 8.8 % (25-40); Mean Corpuscular Hemoglobin 23.8 PG (26-34); Monocytes Absolute Auto 700 /uL (0-900); Monocytes Percent Auto 8.9 % (3-14); Neutrophils Absolute Auto 5800 /uL (1500-7000); Neutrophils Percent Auto 79.1 % (50-75); Platelet Count 381 X10^3/uL (150-400); Red Cell Distribution Width 22.4 % (11.6-14.8); White Blood Cell Count 7.4 X10^3/uL (4.5-11.0)
[2024-05-31 05:26] LABS: Alanine Aminotransferase 12 IU/L (<50); Albumin 3.3 g/dL (3.5-5.0); Albumin Globulin Ratio 1.3 (1.0-2.8); Alkaline Phosphatase 89 U/L (38-126); Aspartate Aminotransferase 17 IU/L (17-59); Bilirubin Total 0.8 mg/dL (0.2-1.3); Blood Urea Nitrogen 18 mg/dL (9-20); Calcium 8.6 mg/dL (8.4-10.2); Carbon Dioxide 30 mmol/L (22-32); Chloride 101 mmol/L (98-107); Estimated Glomerular Filt Rate 47 mL/min (>60); Globulin 2.5 g/dL (1.7-4.1); Glucose 106 mg/dL (80-110); HEMOLYSIS < 15 (0-50); Magnesium 1.7 mg/dL (1.6-2.3); Potassium 3.4 mmol/L (3.4-5.1); Sodium 135 mmol/L (137-145); Total Protein 5.8 g/dL (6.3-8.2)
[2024-05-31 05:58] LABS: Anisocytosis 2+; Hypochromasia 1+; Microcytosis 1+; Platelet Estimate Adequate on smear; Poikilocytosis 1+
[2024-05-31] MEDS: TORSEMIDE 10 MG TABLET 60 MG PO (08:27)
[2024-05-31] MEDS: METOPROLOL ER 50 MG TABLET 200 MG PO (08:27)
[2024-05-31] MEDS: PANTOPRAZOLE 40 MG VIAL IV ×2 (08:27→22:36)
[2024-05-31] MEDS: FERROUS SULFATE 325 MG TABLET PO (08:27)
[2024-05-31] MEDS: ACETAMINOPHEN 325 MG TABLET 650 MG PO (08:33)
--- NOTE | 2024-05-31 09:07 | P.PN_ITS ---
Subjective Subjective Interval history: Summary: Admitted with recurrent GI bleeding. Subjective: He prepped without difficulty last night. No rectal bleeding, hemoglobin is stable. No abdominal pain or hematemesis. Exam Vital Signs (past 8 hours): - 05/31/24 04:00 05/31/24 08:00 05/31/24 08:27 Temperature 97.4 F L 97.8 F Pulse Rate 70 93 H 93 H Respiratory Rate 20 30 H Blood Pressure 139/63 139/70 139/70 Pulse Oximetry 95 93 Oxygen Flow Rate 0 0 Fraction of Inspired Oxygen 28 SaO2/FiO2 Ratio 242 Oxygen Delivery Method Room Air Oxygen Flow Rate 0 Narrative Exam Narrative: NAD, alert and oriented. Fluent speech. Lungs are clear, normal rate and effort. Heart is regular, no murmur gallop or rub. Abdomen is soft, non distended. Extremities are free of edema. Objective Labs 05/31/24 04:14 05/31/24 04:14 Labs: Laboratory Results - last 24 hr 05/30/24 05/30/24 05/31/24 12:36 22:02 04:14 WBC 7.4 RBC 3.60 L Hgb 8.7 L 8.7 L 8.6 L Hct 29.0 L 28.2 L 27.7 L MCV 77.0 L MCH 23.8 L MCHC 31.0 RDW 22.4 H Plt Count 381 Neut % (Auto) 79.1 H Lymph % (Auto) 8.8 L [place] % (Auto) 8.9 Eos % (Auto) 2.6 Baso % (Auto) 0.6 Neut # (Auto) 5800 Lymph # (Auto) 600 L [place] # (Auto) 700 Eos # (Auto) 200 Baso # (Auto) 0 Platelet Estimate Adequate on smear RBC Morphology See below Hypochromasia 1+ H Poikilocytosis 1+ H Anisocytosis 2+ H Microcytosis 1+ H Sodium 135 L Potassium 3.4 Chloride 101 Carbon Dioxide 30 BUN 18 Creatinine 1.64 H Estimated GFR 47 L BUN/Creatinine Ratio 11.0 Glucose 106 Calcium 8.6 Magnesium 1.7 Total Bilirubin 0.8 AST 17 ALT 12 Alkaline Phosphatase 89 Total Protein 5.8 L Albumin 3.3 L Globulin 2.5 Albumin/Globulin Ratio 1.3 PFSH Social History household members: significant other Smoking Status: Never smoker alcohol intake: current Assessment & Plan Assessment & Plan narrative: 1. Acute blood loss anemia, present on admission and improved. 2. GI bleeding, present on admission and active. - continue IV PPI BID for now 3. CKD stage IV, present on admission and stable. - continue to monitor renal function, his Cr actually appears improved at 1.66 from recent outpatient labs(low 2s per nephrology notes) 4. 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 5. HTN hold home amlodipine, torsemide (for leg edema). Present on admission and active. - continuing home metoprolol 200. After transfusion his BP is improved at SBP 133. 6. Acute metabolic encephalopathy, present on admission and resolved. PLAN: Endoscopic evaluation today. DAVID: 05/31, if endoscopy is unremarkable and patient remained stable. Time-Based Coding :: [TOTAL MINUTES] spent with patient and on the chart (including review of chart, obtaining history, exam, reviewing outside data, placing orders, documenting exam and treatment plan, and counseling patient) on [DATE].
[2024-05-31] MEDS: SODIUM CHLORIDE 0.9% 1,000 ML 84 ML IV (09:56)
[2024-05-31] MEDS: MAGNESIUM CHLORIDE 64 MG TABLET 128 MG PO (12:10)
[2024-05-31] MEDS: POTASSIUM CHLORIDE 20 MEQ TAB 40 MEQ PO (12:10)
[2024-05-31] MEDS: LACTATED RINGERS 1,000 ML 42 ML IV (15:50)
--- NOTE | 2024-05-31 16:08 | SUR.OPER ---
EGD SCOPE # [id number] COLONOSCOPE # [id number]
--- NOTE | 2024-05-31 16:38 | PM.OP.EC ---
Operative Date/Time/Diagnoses Date of procedure: 05/31/24 Time of procedure: 16:38 Pre-op diagnosis: anemia Post-op diagnosis: other (fungating right colon mass) Procedure & Clinicians Study performed: EGD with biopsy Colonoscopy with biopsy Same procedure as scheduled: Yes Indications: Anemia requiring transfusion Surgeon: Evans Winters Procedure Notes SCOAP/Timeout: Performed Procedure in detail: Patient was brought into the endo suite. General anesthesia was performed due to the patient's stroke and overall debilitated status with endotracheal intubation. Bite block was inserted. Time-out was performed. Lubricated endoscope was placed down the esophagus through the stomach and the 2nd portion of the duodenal. There was no evidence of blood in the duodenal stomach. There was mild gastritis in the antrum biopsies were performed. Retroflexed view did not show a significant hiatal hernia. Z-line was regular at 40 cm. Scope was withdrawn. Attention was then turned to the colonoscopy. Patient was placed in left lateral decubitus position. The perineum was inspected without any gross abnormality, aside from large hemorrhoids. Lubricated pediatric colonoscope was inserted and advanced to the cecum. The entire right colon was comprised of large greater than 10 cm mass obstructing the appendiceal orifice and terminal ileum. Multiple random biopsies were taken of the mass, however given the size of the mass sampling error may have occurred.. The colonoscope was withdrawn slowly inspecting the circumference of the colon. Patient had pancolonic diverticulosis without evidence of active bleeding. Very small polyps may have been missed, prep quality was adequate. Retroflexed view of the rectum showed large, prolapsed nonbleeding internal hemorrhoids. The scope was withdrawn the patient was taken to PACU in good condition. Scope withdrawal time: 6 Sedation minutes: 34 Findings: gastritis and possible cancer (right colon) Specimen(s): other (1. antrum 2. right colon mass) Complications: none Impression: Fungating mass right colon Post-procedure Recommendations: Colonscopy in 1 year (discussion for surgery on this admission) Plan for aftercare: return to hospital bed, clear liquids Disposition: PACU
--- NOTE | 2024-05-31 16:56 | PM.PN.1 ---
Subjective Subjective Date Patient Seen: 05/31/24 Time Patient Seen: 16:56 Interval history: Patient underwent EGD and colonoscopy which showed a large fungating right colon mass. Exam Vital Signs (past 8 hours): - 05/31/24 12:00 05/31/24 12:11 05/31/24 15:34 Temperature 97.9 F 97.8 F Pulse Rate 64 75 Respiratory Rate 21 20 Blood Pressure 101/44 L 101/48 L 122/54 L Pulse Oximetry 92 90 L Oxygen Delivery Method Room Air Oxygen Flow Rate 0 Fraction of Inspired Oxygen 28 SaO2/FiO2 Ratio 242 Oxygen Delivery Method Room Air Oxygen Flow Rate 0 Narrative Exam Narrative: Right hemiplegia Objective Labs 05/31/24 04:14 05/31/24 04:14 Labs: Laboratory Results - last 24 hr 05/30/24 05/31/24 22:02 04:14 WBC 7.4 RBC 3.60 L Hgb 8.7 L 8.6 L Hct 28.2 L 27.7 L MCV 77.0 L MCH 23.8 L MCHC 31.0 RDW 22.4 H Plt Count 381 Neut % (Auto) 79.1 H Lymph % (Auto) 8.8 L [place] % (Auto) 8.9 Eos % (Auto) 2.6 Baso % (Auto) 0.6 Neut # (Auto) 5800 Lymph # (Auto) 600 L [place] # (Auto) 700 Eos # (Auto) 200 Baso # (Auto) 0 Platelet Estimate Adequate on smear RBC Morphology See below Hypochromasia 1+ H Poikilocytosis 1+ H Anisocytosis 2+ H Microcytosis 1+ H Sodium 135 L Potassium 3.4 Chloride 101 Carbon Dioxide 30 BUN 18 Creatinine 1.64 H Estimated GFR 47 L BUN/Creatinine Ratio 11.0 Glucose 106 Calcium 8.6 Magnesium 1.7 Total Bilirubin 0.8 AST 17 ALT 12 Alkaline Phosphatase 89 Total Protein 5.8 L Albumin 3.3 L Globulin 2.5 Albumin/Globulin Ratio 1.3 PFSH Medical History (Updated 05/31/24 @ 16:57 by Evans Winters MD) Ascending colon malignant neoplasm Social History household members: significant other Smoking Status: Never smoker alcohol intake: current Assessment & Plan Assessment and plan (1) Ascending colon malignant neoplasm: Status: Acute Assessment & Plan narrative: 1. New diagnosis: Malignant neoplasm -CEA, CT chest abdomen pelvis. We will need IV contrast to find lung and liver metastases. Discussed with hospitalist team given his chronic renal insufficiency and we will just have to risk a bump in creatinine after CT scan. 2. Given patient's overall morbidity, we will need to have a discussion based on his stage in the mass what he would like to do. With the anemia, but no active bleeding, he may eventually need right hemicolectomy, if there is no evidence of metastatic disease. Time-Based Coding :: [TOTAL MINUTES] spent with patient and on the chart (including review of chart, obtaining history, exam, reviewing outside data, placing orders, documenting exam and treatment plan, and counseling patient) on [DATE].
--- NOTE | 2024-05-31 17:31 | SUR.PHASEI ---
RT here for abg's and eval for cpap. pt remains on 15l/ simple mask.
--- NOTE | 2024-05-31 17:43 | SUR.PHASEI ---
rt here. awaiting bipap machine. see resp flow record.
--- NOTE | 2024-05-31 18:03 | SUR.PHASEI ---
AWAITING ICU BED. RT TO REREVALUATE AGAIN AT APPROX 1840.
[2024-05-31 18:09] LABS: Carcinoembryonic Antigen 2.1 ng/mL (0.1-3.0)
--- NOTE | 2024-05-31 18:17 | SUR.PHASEI ---
PT STABLE AND TOLERATING BIPAP. CONDITION UNCHANGED. PT ON 40% FIO2, BIPAP SETTINGS 18/8 WITH BACKUP SET AT 15. SEE RESP THERAPY DEPT'S FLOW RECORD.
--- NOTE | 2024-05-31 18:25 | SUR.PHASEI ---
REPORT TO CLEOPATRA MCNEILL RN
[2024-05-31 18:59] LABS: Allen Test for ABG Passed? Positive; Base Excess ABG 7.5 mmol/L (-2-3); Blood Gas Collection Site Left Radial; Blood Gas Mode Bi-Level Ventilation; Delivery System BiPAP; HCO3 ABG 36 mmol/L (23-27); Oxygen Saturation ABG 94 % (95-100); PCO2 ABG 73.6 mmHg (35-45); PEEP 8; PO2 ABG 82 mmHg (80-100); Respiratory Rate 15; TCO2 ABG 35 mmol/L (23-27)
[2024-05-31 19:13] LABS: pH ABG 7.29 (7.35-7.45)
--- NOTE | 2024-05-31 19:28 | PC.NURSE ---
1900 pt brought up from PACU at change of shift, connected pt to monitoring system, RT at bedside to set up BIpap 40% Fio2, 28/01. VSS, report given to on coming Nurse Daquan, no further pt contact at this time.
[2024-05-31 20:23] LABS: MRSA (Nasal) PCR NOT DETECTED (Not Detect)
[2024-06-01] VITALS (68 sets, daily range): BP systolic 102–135; BP diastolic 50–64; PULSE 55–92; RESP 14–36; TEMP 31–37; O2SAT 72–99
[2024-06-01 05:38] LABS: Add Manual Diff / Slide Review NO; Basophils Absolute Auto 0 /uL (0-100); Basophils Percent Auto 0.5 % (0-2); Eosinophils Absolute Auto 100 /uL (0-450); Eosinophils Percent Auto 1.2 % (2-4); Hematocrit 28.1 % (41-53); Hemoglobin 8.3 g/dL (13.5-17.5); Lymphocytes Absolute Auto 700 /uL (1100-4500); Lymphocytes Percent Auto 7.4 % (25-40); Mean Corpuscular HGB Conc 29.6 % (30-36); Mean Corpuscular Hemoglobin 23.4 PG (26-34); Mean Corpuscular Volume 79.2 fL (80-100); Monocytes Absolute Auto 800 /uL (0-900); Monocytes Percent Auto 9.4 % (3-14); Neutrophils Absolute Auto 7200 /uL (1500-7000); Neutrophils Percent Auto 81.5 % (50-75); Platelet Count 357 X10^3/uL (150-400); Red Blood Cell Count 3.54 X10^6/uL (4.5-5.9); Red Cell Distribution Width 22.7 % (11.6-14.8); White Blood Cell Count 8.9 X10^3/uL (4.5-11.0)
[2024-06-01 05:46] LABS: Alanine Aminotransferase 12 IU/L (<50); Albumin 3.2 g/dL (3.5-5.0); Albumin Globulin Ratio 1.2 (1.0-2.8); Alkaline Phosphatase 80 U/L (38-126); Aspartate Aminotransferase 17 IU/L (17-59); BUN Creatinine Ratio 9.3 (6-22); Bilirubin Total 0.6 mg/dL (0.2-1.3); Blood Urea Nitrogen 19 mg/dL (9-20); Calcium 8.6 mg/dL (8.4-10.2); Carbon Dioxide 31 mmol/L (22-32); Chloride 99 mmol/L (98-107); Estimated Glomerular Filt Rate 36 mL/min (>60); Globulin 2.6 g/dL (1.7-4.1); Glucose 98 mg/dL (80-110); HEMOLYSIS < 15 (0-50); Magnesium 1.9 mg/dL (1.6-2.3); Potassium 3.8 mmol/L (3.4-5.1); Sodium 135 mmol/L (137-145); Total Protein 5.8 g/dL (6.3-8.2)
[2024-06-01 06:13] LABS: Anisocytosis 2+; Hypochromasia 2+
[2024-06-01 06:14] LABS: Microcytosis 2+; Poikilocytosis 1+
--- NOTE | 2024-06-01 07:37 | P.PN_ITS ---
Subjective Subjective Interval history: Summary: This is a 63-year-old male admitted with anemia and presumed rectal bleeding. Colonoscopy on May 31 revealed a right colon mass. CEA and CT are pending. S: He is doing well. He was on BiPAP overnight but is doing fine and nasal cannula today. He denies any chronic lung conditions, but appears to have CALDERON. He discuss the possibility of a surgical resection of his mass, and agrees to this. This will likely happen Tuesday afternoon. CT scan of the abdomen did reveal polycystic kidneys and liver cysts but no obvious metastatic lesions. Exam Vital Signs (past 8 hours): - 05/31/24 23:45 05/31/24 23:45 06/01/24 00:00 Pulse Rate 54 L 67 Respiratory Rate 17 19 Blood Pressure 99/55 L Pulse Oximetry 94 92 Fraction of Inspired Oxygen 06/01/24 00:00 06/01/24 00:15 06/01/24 00:15 Pulse Rate 68 Respiratory Rate 18 Blood Pressure 127/61 115/56 L Pulse Oximetry 95 Fraction of Inspired Oxygen 06/01/24 00:30 06/01/24 00:30 06/01/24 00:45 Pulse Rate 69 Respiratory Rate 18 Blood Pressure 113/57 L 113/58 L Pulse Oximetry 95 Fraction of Inspired Oxygen 06/01/24 00:45 06/01/24 01:00 06/01/24 01:00 Pulse Rate 68 69 Respiratory Rate 21 19 Blood Pressure 111/57 L Pulse Oximetry 97 96 Fraction of Inspired Oxygen 06/01/24 01:15 06/01/24 01:15 06/01/24 01:30 Pulse Rate 69 Respiratory Rate 20 Blood Pressure 108/53 L 119/59 L Pulse Oximetry 97 Fraction of Inspired Oxygen 06/01/24 01:30 06/01/24 01:45 06/01/24 01:45 Pulse Rate 72 71 Respiratory Rate 18 18 Blood Pressure 115/54 L Pulse Oximetry 95 95 Fraction of Inspired Oxygen 06/01/24 02:00 06/01/24 02:00 06/01/24 02:15 Pulse Rate 76 74 Respiratory Rate 28 H 23 Blood Pressure 116/55 L Pulse Oximetry 96 97 Fraction of Inspired Oxygen 06/01/24 02:15 06/01/24 02:30 06/01/24 02:30 Pulse Rate 77 Respiratory Rate 30 H Blood Pressure 108/54 L 112/59 L Pulse Oximetry 84 L Fraction of Inspired Oxygen 06/01/24 02:45 06/01/24 02:45 06/01/24 03:00 Pulse Rate 75 80 Respiratory Rate 14 Blood Pressure 114/57 L Pulse Oximetry 97 85 L Fraction of Inspired Oxygen 06/01/24 03:15 06/01/24 03:15 06/01/24 03:30 Pulse Rate 81 Respiratory Rate 29 H Blood Pressure 132/60 120/57 L Pulse Oximetry 80 L Fraction of Inspired Oxygen 06/01/24 03:30 06/01/24 03:45 06/01/24 03:45 Pulse Rate 76 80 Respiratory Rate 23 22 Blood Pressure 125/60 Pulse Oximetry 95 88 L Fraction of Inspired Oxygen 06/01/24 04:00 06/01/24 04:00 06/01/24 04:15 Pulse Rate 69 Respiratory Rate 17 Blood Pressure 114/55 L 102/50 L Pulse Oximetry 99 Fraction of Inspired Oxygen 06/01/24 04:15 06/01/24 04:29 06/01/24 04:30 Pulse Rate 58 L 57 L Respiratory Rate 16 17 Blood Pressure 104/54 L Pulse Oximetry 95 95 Fraction of Inspired Oxygen 06/01/24 06:03 Pulse Rate Respiratory Rate Blood Pressure Pulse Oximetry Fraction of Inspired Oxygen 50 Fraction of Inspired Oxygen 50 SaO2/FiO2 Ratio 242 Oxygen Delivery Method Room Air Oxygen Flow Rate 35 Narrative Exam Narrative: Alert and oriented. Fluent speech. Mild tachypnea, oxygen nasal cannula. No distress. Lungs are clear, normal rate and effort. Heart is regular, no murmur gallop or rub. Abdomen is soft, non distended. Extremities are free of edema. Objective Labs 06/01/24 05:12 06/01/24 05:12 Labs: Laboratory Results - last 24 hr 05/31/24 05/31/24 05/31/24 04:14 18:54 19:04 WBC RBC Hgb Hct MCV MCH MCHC RDW Plt Count Neut % (Auto) Lymph % (Auto) [place] % (Auto) Eos % (Auto) Baso % (Auto) Neut # (Auto) Lymph # (Auto) [place] # (Auto) Eos # (Auto) Baso # (Auto) RBC Morphology Hypochromasia Poikilocytosis Anisocytosis Microcytosis ABG Sample Site Left radial ABG pH 7.29 L* ABG pCO2 73.6 H* ABG pO2 82 ABG HCO3 36 H ABG Total CO2 35 H ABG O2 Saturation 94 L ABG Base Excess 7.5 H Mark Test Positive Respiration Rate 15 O2 Delivery Device Bipap Mode of Support Bi-level ventilation FiO2 % 40.0 % PEEP or CPAP 8 Sodium Potassium Chloride Carbon Dioxide BUN Creatinine Estimated GFR BUN/Creatinine Ratio Glucose Calcium Magnesium Total Bilirubin AST ALT Alkaline Phosphatase Total Protein Albumin Globulin Albumin/Globulin Ratio Carcinoembryonic Ag 2.1 Nasal Screen MRSA (PCR) Not detected 06/01/24 05:12 WBC 8.9 RBC 3.54 L Hgb 8.3 L Hct 28.1 L MCV 79.2 L MCH 23.4 L MCHC 29.6 L RDW 22.7 H Plt Count 357 Neut % (Auto) 81.5 H Lymph % (Auto) 7.4 L [place] % (Auto) 9.4 Eos % (Auto) 1.2 L Baso % (Auto) 0.5 Neut # (Auto) 7200 H Lymph # (Auto) 700 L [place] # (Auto) 800 Eos # (Auto) 100 Baso # (Auto) 0 RBC Morphology See below Hypochromasia 2+ H Poikilocytosis 1+ H Anisocytosis 2+ H Microcytosis 2+ H ABG Sample Site ABG pH ABG pCO2 ABG pO2 ABG HCO3 ABG Total CO2 ABG O2 Saturation ABG Base Excess Mark Test Respiration Rate O2 Delivery Device Mode of Support FiO2 % PEEP or CPAP Sodium 135 L Potassium 3.8 Chloride 99 Carbon Dioxide 31 BUN 19 Creatinine 2.04 H Estimated GFR 36 L BUN/Creatinine Ratio 9.3 Glucose 98 Calcium 8.6 Magnesium 1.9 Total Bilirubin 0.6 AST 17 ALT 12 Alkaline Phosphatase 80 Total Protein 5.8 L Albumin 3.2 L Globulin 2.6 Albumin/Globulin Ratio 1.2 Carcinoembryonic Ag Nasal Screen MRSA (PCR) [facility] Medical History (Updated 05/31/24 @ 16:57 by Evans Winters MD) Ascending colon malignant neoplasm Social History household members: significant other Smoking Status: Never smoker alcohol intake: current Assessment & Plan Assessment & Plan narrative: 1. Acute blood loss anemia, present on admission and improved. 2. GI bleeding, present on admission and active. - continue IV PPI BID for now 3. Right colon mass, present on admission and active. 4. CKD stage IV, present on admission and stable. - continue to monitor renal function, his Cr actually appears improved at 1.66 from recent outpatient labs(low 2s per nephrology notes) 5. 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 6. HTN hold home amlodipine, torsemide (for leg edema). Present on admission and active. - continuing home metoprolol 200. 7. Acute metabolic encephalopathy, present on admission and resolved. Plan: -transfuse hemoglobin to 10 per request of surgery. -out of bed, incentive spirometer and try to wean oxygen. -DuoNebs as needed. -anticipate surgery on Tuesday, June 02 for resection of right colon tumor. DAVID: 06/04. Full code He lives in [place] with his . Time-Based Coding :: [TOTAL MINUTES] spent with patient and on the chart (including review of chart, obtaining history, exam, reviewing outside data, placing orders, documenting exam and treatment plan, and counseling patient) on [DATE].
[2024-06-01] MEDS: TORSEMIDE 10 MG TABLET 60 MG PO (08:49)
[2024-06-01] MEDS: FERROUS SULFATE 325 MG TABLET PO (08:49)
[2024-06-01] MEDS: METOPROLOL ER 50 MG TABLET 200 MG PO (08:50)
[2024-06-01] MEDS: PANTOPRAZOLE 40 MG VIAL IV ×2 (08:50→21:53)
[2024-06-01 11:14] LABS: Allen Test for ABG Passed? Positive; Base Excess ABG 6.3 mmol/L (-2-3); Blood Gas Collection Site Left Radial; HCO3 ABG 36 mmol/L (23-27); Oxygen Saturation ABG 97 % (95-100); PCO2 ABG 82.5 mmHg (35-45); PO2 ABG 113 mmHg (80-100); TCO2 ABG 36 mmol/L (23-27); pH ABG 7.24 (7.35-7.45)
--- NOTE | 2024-06-01 11:42 | CM.DPNOTE ---
Addendum entered by KENYETTA Mckeon 06/02/24 13:38: ADD: Patient going to the OR today for open hemicolectomy. CM team will plan to follow clinical course closely for final discharge needs and recommendations. Original Note: DCP Cont Reviewed chart. Patient discussed in multidisciplinary rounds. Malignant neoplasm found during EGD and colonoscopy. According to Dr Pedroza, next steps in medical plan of care still being discussed. Medicine attending, surgery consulting. CM team following clinical course closely in case any discharge needs or concerns arise. JW
--- NOTE | 2024-06-01 11:50 | DI.CT.S_ITS ---
PROCEDURE: CT CHEST ABD PEL W CON INDICATIONS: new diagnosis of colon cancer TECHNIQUE: After the administration of intravenous contrast, 5 mm thick sections acquired from the lung apices to the symphysis. 5 mm coronal and sagittal reformats were performed, with additional 7 mm MIP reformats through the lungs. For radiation dose reduction, the following was used: automated exposure control, adjustment of mA and/or kV according to patient size. COMPARISON: None. FINDINGS: Image quality: Mild patient motion artifact CHEST: Lower Neck: No enlarged lymph nodes. Thyroid: No thyroid nodules which require sonographic follow up, per consensus guidelines. Axillae: No enlarged lymph nodes. Chest Wall: Unremarkable. Lungs and Pleura: No pneumothorax. Trace right greater than left pleural effusions with subjacent atelectasis. Heart: Heart size is normal. No pericardial effusion. Thoracic Vessels: The aorta and pulmonary arteries demonstrate normal size. Mediastinum and Melissa: No enlarged lymph nodes. Esophagus: No wall thickening. No hiatal hernia. ABDOMEN: Liver: There are numerous hepatic cysts and additional subcentimeter hepatic hypodensities, which are small to characterize by CT. Gallbladder: No radiopaque gallstones or wall thickening. Biliary ducts: No biliary dilation. Pancreas: No ductal dilation. Spleen: Size is within normal limits. Adrenal Glands: No adrenal nodules. Kidneys and Ureters: Innumerable bilateral renal cysts. Nonobstructing right inferior pole 5 mm calculus. No hydronephrosis. Stomach and Bowel: There is circumferential bowel wall thickening at the hepatic flexure corresponding to known malignancy. Peritoneum: No abnormal intraperitoneal fluid. No free air. Ventral Wall: No significant ventral hernia. Abdominal Nodes: No retroperitoneal or mesenteric adenopathy by size criteria. Vessels: Aorta and inferior vena cava are normal in size. PELVIS: Pelvic Organs: Unremarkable. Bladder: No bladder wall thickening, accounting for underdistention. Pelvic Nodes: No enlarged lymph nodes. Miscellaneous: No inguinal hernias are seen. Bones: No aggressive osseous abnormality. IMPRESSION: Circumferential bladder wall thickening involving the hepatic flexure consistent with colon cancer. No suspicious lymphadenopathy. Innumerable bilateral renal and hepatic cysts likely reflect polycystic kidney disease. Trace right greater than left pleural effusions with subjacent atelectasis. Approved by: Leilani Nicole M.D.,Ph.D. on 06/01/2024 at 20:51
--- NOTE | 2024-06-01 14:36 | PM.PN.1 ---
Subjective Subjective Date Patient Seen: 06/01/24 Time Patient Seen: 14:36 Interval history: Patient seems to be back to baseline on nasal cannula. No abdominal pain Exam Vital Signs (past 8 hours): - 06/01/24 07:00 06/01/24 07:00 06/01/24 07:00 Temperature Pulse Rate 70 Respiratory Rate 20 Blood Pressure 115/57 L Pulse Oximetry 95 Oxygen Delivery Method Nasal Cannula BiPAP Oximask 06/01/24 07:15 06/01/24 07:15 06/01/24 07:30 Temperature Pulse Rate 74 75 Respiratory Rate 25 H 21 Blood Pressure 112/56 L Pulse Oximetry 92 93 Oxygen Delivery Method 06/01/24 07:30 06/01/24 07:45 06/01/24 07:45 Temperature Pulse Rate 75 Respiratory Rate 17 Blood Pressure 117/59 L 116/58 L Pulse Oximetry 92 Oxygen Delivery Method 06/01/24 08:00 06/01/24 08:00 06/01/24 08:15 Temperature Pulse Rate 76 Respiratory Rate 18 Blood Pressure 118/59 L 107/58 L Pulse Oximetry 91 Oxygen Delivery Method 06/01/24 08:15 06/01/24 08:30 06/01/24 08:30 Temperature Pulse Rate 73 76 Respiratory Rate 19 15 Blood Pressure 113/59 L Pulse Oximetry 92 93 Oxygen Delivery Method 06/01/24 08:45 06/01/24 08:45 06/01/24 08:50 Temperature Pulse Rate 75 73 Respiratory Rate 24 Blood Pressure 120/56 L 121/63 Pulse Oximetry 92 Oxygen Delivery Method 06/01/24 09:00 06/01/24 09:00 06/01/24 09:15 Temperature Pulse Rate 83 Respiratory Rate 21 Blood Pressure 123/58 L 121/57 L Pulse Oximetry 90 L Oxygen Delivery Method 06/01/24 09:15 06/01/24 09:30 06/01/24 09:30 Temperature Pulse Rate 81 83 Respiratory Rate 21 24 Blood Pressure 120/56 L Pulse Oximetry 93 93 Oxygen Delivery Method 06/01/24 09:45 06/01/24 09:45 06/01/24 09:55 Temperature 97.3 F L Pulse Rate 80 Respiratory Rate 24 Blood Pressure 123/60 Pulse Oximetry 95 Oxygen Delivery Method 06/01/24 10:00 06/01/24 10:00 06/01/24 10:15 Temperature Pulse Rate 76 Respiratory Rate 25 H Blood Pressure 129/61 122/58 L Pulse Oximetry 96 Oxygen Delivery Method 06/01/24 10:15 06/01/24 10:30 06/01/24 11:23 Temperature Pulse Rate 78 77 92 H Respiratory Rate 24 35 H Blood Pressure Pulse Oximetry 96 96 Oxygen Delivery Method 06/01/24 11:30 06/01/24 12:20 06/01/24 12:21 Temperature Pulse Rate 73 74 Respiratory Rate 30 H 24 Blood Pressure 135/61 Pulse Oximetry Oxygen Delivery Method 06/01/24 12:21 06/01/24 12:30 06/01/24 13:00 Temperature Pulse Rate 72 70 Respiratory Rate 24 21 Blood Pressure Pulse Oximetry Oxygen Delivery Method Nasal Cannula BiPAP Oximask 06/01/24 13:00 06/01/24 13:00 06/01/24 13:30 Temperature 97.9 F Pulse Rate 71 76 Respiratory Rate 21 23 Blood Pressure Pulse Oximetry Oxygen Delivery Method 06/01/24 14:00 06/01/24 14:30 Temperature Pulse Rate 76 73 Respiratory Rate 25 H 19 Blood Pressure Pulse Oximetry Oxygen Delivery Method Fraction of Inspired Oxygen 50 SaO2/FiO2 Ratio 242 Oxygen Delivery Method Nasal Cannula,BiPAP,Oximask Oxygen Flow Rate 35 Narrative Exam Narrative: Gen: NAD, sitting comfortably in bed, appears well HEENT: Sclera are anicteric, head is normocephalic and atraumatic, trachea is midline. CV: RRR, no JVD Resp: clear to auscultation bilaterally, equal chest wall movement bilaterally Abd: soft, nontender, normoactive bowel sounds Ext: no edema, full range of motion Neuro: Cranial nerves II-XII grossly intact, no focal deficits Skin: No erythema or ecchymosis Objective Imaging CT scan - abdomen: My impression: CT scan chest, abdomen and pelvis reviewed by me. Proximally 9-10 cm right-sided colon mass has found that the colonoscopy. He has polycystic kidneys insists his liver but not obvious liver metastatic disease or lung metastatic disease. Labs 06/01/24 05:12 06/01/24 05:12 Labs: Laboratory Results - last 24 hr 05/31/24 05/31/24 05/31/24 04:14 17:35 18:54 WBC RBC Hgb Hct MCV MCH MCHC RDW Plt Count Neut % (Auto) Lymph % (Auto) [place] % (Auto) Eos % (Auto) Baso % (Auto) Neut # (Auto) Lymph # (Auto) [place] # (Auto) Eos # (Auto) Baso # (Auto) RBC Morphology Hypochromasia Poikilocytosis Anisocytosis Microcytosis ABG Sample Site Left radial Left radial ABG pH 7.24 L* 7.29 L* ABG pCO2 82.5 H* 73.6 H* ABG pO2 113 H 82 ABG HCO3 36 H 36 H ABG Total CO2 36 H 35 H ABG O2 Saturation 97 94 L ABG Base Excess 6.3 H 7.5 H Mark Test Positive Positive Respiration Rate 15 O2 Delivery Device Bipap Mode of Support Bi-level ventilation FiO2 % 40.0 % PEEP or CPAP 8 Sodium Potassium Chloride Carbon Dioxide BUN Creatinine Estimated GFR BUN/Creatinine Ratio Glucose Calcium Magnesium Total Bilirubin AST ALT Alkaline Phosphatase Total Protein Albumin Globulin Albumin/Globulin Ratio Carcinoembryonic Ag 2.1 Nasal Screen MRSA (PCR) 05/31/24 06/01/24 19:04 05:12 WBC 8.9 RBC 3.54 L Hgb 8.3 L Hct 28.1 L MCV 79.2 L MCH 23.4 L MCHC 29.6 L RDW 22.7 H Plt Count 357 Neut % (Auto) 81.5 H Lymph % (Auto) 7.4 L [place] % (Auto) 9.4 Eos % (Auto) 1.2 L Baso % (Auto) 0.5 Neut # (Auto) 7200 H Lymph # (Auto) 700 L [place] # (Auto) 800 Eos # (Auto) 100 Baso # (Auto) 0 RBC Morphology See below Hypochromasia 2+ H Poikilocytosis 1+ H Anisocytosis 2+ H Microcytosis 2+ H ABG Sample Site ABG pH ABG pCO2 ABG pO2 ABG HCO3 ABG Total CO2 ABG O2 Saturation ABG Base Excess Mark Test Respiration Rate O2 Delivery Device Mode of Support FiO2 % PEEP or CPAP Sodium 135 L Potassium 3.8 Chloride 99 Carbon Dioxide 31 BUN 19 Creatinine 2.04 H Estimated GFR 36 L BUN/Creatinine Ratio 9.3 Glucose 98 Calcium 8.6 Magnesium 1.9 Total Bilirubin 0.6 AST 17 ALT 12 Alkaline Phosphatase 80 Total Protein 5.8 L Albumin 3.2 L Globulin 2.6 Albumin/Globulin Ratio 1.2 Carcinoembryonic Ag Nasal Screen MRSA (PCR) Not detected [facility] Medical History (Updated 05/31/24 @ 16:57 by Evans Winters MD) Ascending colon malignant neoplasm Social History household members: significant other Smoking Status: Never smoker alcohol intake: current Assessment & Plan Assessment and plan (1) Ascending colon malignant neoplasm: Status: Acute (2) Acute blood loss anemia: Status: Acute Assessment & Plan narrative: Risks of surgery discussed with the patient and his girlfriend. We discussed risks of cardiac, pulmonary, neurologic, and kidney based problems from his past medical history as well as specific risks to the colon surgery such as need for ileostomy anastomotic leak, blood loss. Patient agrees to undergo open right hemicolectomy. We will continue to transfuse preoperatively for surgery to a goal of around 10 Time-Based Coding :: [TOTAL MINUTES] spent with patient and on the chart (including review of chart, obtaining history, exam, reviewing outside data, placing orders, documenting exam and treatment plan, and counseling patient) on [DATE].
[2024-06-01] MEDS: NEOMYCIN 500 MG TABLET 1000 MG PO ×2 (15:02→17:12)
[2024-06-01] MEDS: metroNIDAZOLE 500 MG TABLET PO ×3 (15:02→21:53)
[2024-06-01] MEDS: ALBUTEROL 2.5 MG/3 ML NEB (ADULT) INH (19:32)
[2024-06-01] MEDS: PREGABALIN 75 MG CAPSULE PO (21:53)
[2024-06-02] VITALS (67 sets, daily range): BP systolic 110–150; BP diastolic 50–93; PULSE 58–89; RESP 16–39; TEMP 31–36.8; O2SAT 87–100
[2024-06-02 00:35] LABS: Add Manual Diff / Slide Review NO; Basophils Absolute Auto 100 /uL (0-100); Basophils Percent Auto 0.8 % (0-2); Eosinophils Absolute Auto 200 /uL (0-450); Eosinophils Percent Auto 1.7 % (2-4); Hematocrit 29.7 % (41-53); Lymphocytes Absolute Auto 800 /uL (1100-4500); Lymphocytes Percent Auto 8.3 % (25-40); Mean Corpuscular HGB Conc 30.3 % (30-36); Mean Corpuscular Volume 79.1 fL (80-100); Monocytes Absolute Auto 1100 /uL (0-900); Monocytes Percent Auto 11.2 % (3-14); Neutrophils Absolute Auto 7900 /uL (1500-7000); Platelet Count 360 X10^3/uL (150-400); Red Blood Cell Count 3.75 X10^6/uL (4.5-5.9); Red Cell Distribution Width 22.5 % (11.6-14.8); White Blood Cell Count 10.1 X10^3/uL (4.5-11.0)
[2024-06-02 00:44] LABS: BUN Creatinine Ratio 10.6 (6-22); Blood Urea Nitrogen 20 mg/dL (9-20); Calcium 7.9 mg/dL (8.4-10.2); Carbon Dioxide 30 mmol/L (22-32); Chloride 97 mmol/L (98-107); Estimated Glomerular Filt Rate 39 mL/min (>60); Glucose 84 mg/dL (80-110); HEMOLYSIS < 15 (0-50); Potassium 3.6 mmol/L (3.4-5.1); Sodium 129 mmol/L (137-145)
[2024-06-02 01:04] LABS: Anisocytosis 2+; Hypochromasia 1+; Microcytosis 1+; Poikilocytosis 1+
--- NOTE | 2024-06-02 05:56 | PC.NURSE ---
Patient was receiving 1 unit PRBC transfusion at the beginning of the shift, H/H at midnight 9.0/29.7, hospitalist tool honing machine set up operator was updated, order to transfuse another unit of PRBC received and carried out, finished transfusion at 0530, H/H recheck is scheduled for 0800.
[2024-06-02] MEDS: ALBUTEROL 2.5 MG/3 ML NEB (ADULT) INH ×2 (07:55→20:41)
[2024-06-02] MEDS: metroNIDAZOLE 500 MG TABLET PO ×4 (08:21→20:41)
[2024-06-02] MEDS: TORSEMIDE 10 MG TABLET 60 MG PO (08:21)
[2024-06-02] MEDS: FERROUS SULFATE 325 MG TABLET PO (08:22)
[2024-06-02] MEDS: PREGABALIN 75 MG CAPSULE PO ×2 (08:22→20:41)
[2024-06-02] MEDS: METOPROLOL ER 50 MG TABLET 200 MG PO (08:22)
[2024-06-02] MEDS: SODIUM CHLORIDE 0.9% 1,000 ML 84 ML IV ×2 (08:26→14:36)
[2024-06-02] MEDS: PANTOPRAZOLE 40 MG VIAL IV ×2 (09:03→20:41)
[2024-06-02 10:17] LABS: Hematocrit 33.6 % (41-53); Hemoglobin 10.2 g/dL (13.5-17.5); Mean Corpuscular HGB Conc 30.3 % (30-36); Mean Corpuscular Hemoglobin 24.4 PG (26-34); Mean Corpuscular Volume 80.4 fL (80-100); Platelet Count 347 X10^3/uL (150-400); Red Blood Cell Count 4.18 X10^6/uL (4.5-5.9); Red Cell Distribution Width 21.8 % (11.6-14.8); White Blood Cell Count 8.1 X10^3/uL (4.5-11.0)
[2024-06-02 11:16] LABS: BUN Creatinine Ratio 8.7 (6-22); Blood Urea Nitrogen 18 mg/dL (9-20); Calcium 8.3 mg/dL (8.4-10.2); Carbon Dioxide 34 mmol/L (22-32); Chloride 97 mmol/L (98-107); Estimated Glomerular Filt Rate 35 mL/min (>60); Glucose 100 mg/dL (80-110); HEMOLYSIS < 15 (0-50); Potassium 3.8 mmol/L (3.4-5.1); Sodium 134 mmol/L (137-145)
[2024-06-02 13:09] LABS: Allen Test for ABG Passed? Positive; Base Excess ABG 6.2 mmol/L (-2-3); Blood Gas Collection Site Right Radial; HCO3 ABG 36 mmol/L (23-27); Oxygen Saturation ABG 94 % (95-100); PCO2 ABG 84.6 mmHg (35-45); PO2 ABG 88 mmHg (80-100); TCO2 ABG 36 mmol/L (23-27); pH ABG 7.24 (7.35-7.45)
--- NOTE | 2024-06-02 13:34 | PM.PN.1 ---
Subjective Subjective Date Patient Seen: 06/02/24 Time Patient Seen: 13:34 Interval history: Patient's respiratory status has declined since our discussion last night. Blood gas was obtained that demonstrated an ETC02 of over 80. His hemoglobin has improved with transfusion, but his creatitine has worsened since the CT scan Exam Vital Signs (past 8 hours): - 06/02/24 06:00 06/02/24 06:30 06/02/24 07:00 Temperature Pulse Rate 81 86 78 Respiratory Rate 24 29 H 24 Blood Pressure Pulse Oximetry 96 89 L 95 Oxygen Delivery Method Oxygen Flow Rate Fraction of Inspired Oxygen 06/02/24 07:30 06/02/24 07:55 06/02/24 08:00 Temperature Pulse Rate 82 81 84 Respiratory Rate 27 H 24 23 Blood Pressure Pulse Oximetry 96 93 96 Oxygen Delivery Method Oximask Oxygen Flow Rate 10 Fraction of Inspired Oxygen 06/02/24 08:22 06/02/24 08:24 06/02/24 08:24 Temperature 97.8 F Pulse Rate 83 76 Respiratory Rate 19 Blood Pressure 124/58 L 124/58 L Pulse Oximetry 91 Oxygen Delivery Method Oxygen Flow Rate Fraction of Inspired Oxygen 06/02/24 08:30 06/02/24 09:00 06/02/24 09:00 Temperature Pulse Rate 68 76 Respiratory Rate 19 24 Blood Pressure Pulse Oximetry 92 90 L Oxygen Delivery Method Oximask Oxygen Flow Rate Fraction of Inspired Oxygen 06/02/24 09:30 06/02/24 10:00 06/02/24 10:30 Temperature Pulse Rate 68 72 58 L Respiratory Rate 23 24 17 Blood Pressure Pulse Oximetry 97 93 98 Oxygen Delivery Method Oxygen Flow Rate Fraction of Inspired Oxygen 06/02/24 10:31 06/02/24 10:33 06/02/24 10:33 Temperature 97.6 F Pulse Rate 58 L 71 Respiratory Rate 22 Blood Pressure 135/61 135/61 Pulse Oximetry 98 Oxygen Delivery Method Oxygen Flow Rate Fraction of Inspired Oxygen 06/02/24 11:00 06/02/24 11:27 06/02/24 11:30 Temperature Pulse Rate 60 69 Respiratory Rate 16 17 Blood Pressure 135/61 Pulse Oximetry 97 98 Oxygen Delivery Method Oxygen Flow Rate Fraction of Inspired Oxygen 45 06/02/24 12:00 06/02/24 12:30 06/02/24 13:00 Temperature Pulse Rate 75 71 73 Respiratory Rate 23 19 18 Blood Pressure Pulse Oximetry 97 97 96 Oxygen Delivery Method Oxygen Flow Rate Fraction of Inspired Oxygen Fraction of Inspired Oxygen 45 SaO2/FiO2 Ratio 242 Oxygen Delivery Method Oximask Oxygen Flow Rate 10 Const General: cooperative and ill appearing Nutritional Appearance: obese Orientation: alert, awake and oriented x3 HENMT Head: normal to inspection Eyes General: appearance normal, both eyes and all related structures Neck Neck: normal visual inspection Resp Effort & Inspection: labored Cardio Rate: regular rate GI Inspection: normal to inspection Objective Imaging CT scan - abdomen: My impression: My review of the CT scan does not show evidence of metastatic disease Radiologist's impression: Circumferential bladder wall thickening involving the hepatic flexure consistent with colon cancer. No suspicious lymphadenopathy. Innumerable bilateral renal and hepatic cysts likely reflect polycystic kidney disease. Trace right greater than left pleural effusions with subjacent atelectasis. Labs 06/02/24 10:03 06/02/24 10:45 Labs: Laboratory Results - last 24 hr 06/01/24 06/02/24 06/02/24 15:25 00:27 10:03 WBC 10.1 8.1 RBC 3.75 L 4.18 L Hgb 9.0 L 10.2 L Hct 29.7 L 33.6 L MCV 79.1 L 80.4 MCH 24.0 L 24.4 L MCHC 30.3 30.3 RDW 22.5 H 21.8 H Plt Count 360 347 Neut % (Auto) 78.0 H Lymph % (Auto) 8.3 L [place] % (Auto) 11.2 Eos % (Auto) 1.7 L Baso % (Auto) 0.8 Neut # (Auto) 7900 H Lymph # (Auto) 800 L [place] # (Auto) 1100 H Eos # (Auto) 200 Baso # (Auto) 100 RBC Morphology See below Hypochromasia 1+ H Poikilocytosis 1+ H Anisocytosis 2+ H Microcytosis 1+ H ABG Sample Site ABG pH ABG pCO2 ABG pO2 ABG HCO3 ABG Total CO2 ABG O2 Saturation ABG Base Excess Mark Test Sodium 129 L Potassium 3.6 Chloride 97 L Carbon Dioxide 30 BUN 20 Creatinine 1.89 H Estimated GFR 39 L BUN/Creatinine Ratio 10.6 Glucose 84 Calcium 7.9 L Blood Type O Positive Antibody Screen Negative Crossmatch See Detail 12/21/24 12/21/24 10:45 13:05 WBC RBC Hgb Hct MCV MCH MCHC RDW Plt Count Neut % (Auto) Lymph % (Auto) [place] % (Auto) Eos % (Auto) Baso % (Auto) Neut # (Auto) Lymph # (Auto) [place] # (Auto) Eos # (Auto) Baso # (Auto) RBC Morphology Hypochromasia Poikilocytosis Anisocytosis Microcytosis ABG Sample Site Right radial ABG pH 7.24 L* ABG pCO2 84.6 H* ABG pO2 88 ABG HCO3 36 H ABG Total CO2 36 H ABG O2 Saturation 94 L ABG Base Excess 6.2 H Mark Test Positive Sodium 134 L Potassium 3.8 Chloride 97 L Carbon Dioxide 34 H BUN 18 Creatinine 2.07 H Estimated GFR 35 L BUN/Creatinine Ratio 8.7 Glucose 100 Calcium 8.3 L Blood Type Antibody Screen Crossmatch [facility] Medical History (Updated 05/31/24 @ 16:57 by Evans Winters MD) Ascending colon malignant neoplasm Social History household members: significant other Smoking Status: Never smoker alcohol intake: current Assessment & Plan Assessment and plan (1) Ascending colon malignant neoplasm: Status: Acute (2) Acute blood loss anemia: Status: Acute Assessment & Plan narrative: Risks of surgery discussed with the patient and his girlfriend. We discussed risks of cardiac, pulmonary, neurologic, and kidney based problems from his past medical history as well as specific risks to the colon surgery such as need for ileostomy anastomotic leak, blood loss. Discussed with the hospitalist, Dr. Jovel, and our OR team. His respiratory and renal status preclude care at this facility, as we have limited options for vent support and cannot perform dialysis. Recommended transfer to higher level of care. Time-Based Coding :: [TOTAL MINUTES] spent with patient and on the chart (including review of chart, obtaining history, exam, reviewing outside data, placing orders, documenting exam and treatment plan, and counseling patient) on [DATE].
--- NOTE | 2024-06-02 19:06 | P.PN_ITS ---
Subjective Subjective Interval history: 63-year-old male with polycystic kidney disease, CKD stage 4, history of hemorrhagic left CVA in 2013, status post evacuation with residual right-sided weakness, who was admitted with a lower GI bleed. He was found to have a 10 cm fungating mass in the right colon. He is scheduled to go to the operating room this afternoon for resection. After his colonoscopy, he required BiPAP but was transition to nasal cannula yesterday. In discussing him with his , she states that he has been a loud snorer for a long time. She states he was up a lot of the night last night and did not get much sleep. She states he does have difficulty waking up but this is typical for him. She states he has been ?fine? all morning. He is drowsy, but denies any complaints currently. Exam Vital Signs (past 8 hours): - 06/02/24 11:27 06/02/24 11:30 06/02/24 12:00 Temperature Pulse Rate 69 75 Respiratory Rate 17 23 Blood Pressure 135/61 Pulse Oximetry 98 97 Oxygen Delivery Method Fraction of Inspired Oxygen 45 06/02/24 12:30 06/02/24 13:00 06/02/24 13:00 Temperature Pulse Rate 71 73 Respiratory Rate 19 18 Blood Pressure Pulse Oximetry 97 96 Oxygen Delivery Method BiPAP Fraction of Inspired Oxygen 06/02/24 13:30 06/02/24 14:00 06/02/24 14:30 Temperature Pulse Rate 60 78 72 Respiratory Rate 18 30 H 17 Blood Pressure Pulse Oximetry 98 95 94 Oxygen Delivery Method Fraction of Inspired Oxygen 06/02/24 14:33 06/02/24 14:33 06/02/24 15:00 Temperature Pulse Rate 73 Respiratory Rate 18 Blood Pressure 130/60 132/62 Pulse Oximetry 94 Oxygen Delivery Method Fraction of Inspired Oxygen 06/02/24 15:00 06/02/24 15:30 06/02/24 15:34 Temperature Pulse Rate 68 70 Respiratory Rate 16 16 Blood Pressure 132/62 Pulse Oximetry 95 94 Oxygen Delivery Method Fraction of Inspired Oxygen 45 06/02/24 16:00 06/02/24 16:00 06/02/24 16:30 Temperature Pulse Rate 74 73 Respiratory Rate 18 18 Blood Pressure 137/56 L Pulse Oximetry 98 99 Oxygen Delivery Method Fraction of Inspired Oxygen 06/02/24 17:00 06/02/24 17:00 06/02/24 17:01 Temperature Pulse Rate 71 71 Respiratory Rate 23 22 Blood Pressure Pulse Oximetry 99 99 Oxygen Delivery Method High Flow Nasal Cannula Fraction of Inspired Oxygen 06/02/24 17:01 Temperature 98.0 F Pulse Rate Respiratory Rate Blood Pressure 120/56 L Pulse Oximetry Oxygen Delivery Method Fraction of Inspired Oxygen Fraction of Inspired Oxygen 45 SaO2/FiO2 Ratio 242 Oxygen Delivery Method High Flow Nasal Cannula Oxygen Flow Rate 10 Narrative Exam Narrative: GEN: Middle-aged male, drowsy, responsive, follows commands, NAD HEENT:NC, Face symmetric CHEST: Respiratory excursions symmetric, diminished but CTAB CV: RRR, no M/R/G ABD: Soft, obese, NT/ND, BT present in all 4 quadrants, body habitus limits exam EXTR: warm, well perfused, no C/C/E SKIN: warm and dry, no rash NEURO: Flaccid right arm due to old stroke Objective Labs 06/02/24 10:03 06/02/24 10:45 Labs: Laboratory Results - last 24 hr 06/01/24 06/02/24 06/02/24 15:25 00:27 10:03 WBC 10.1 8.1 RBC 3.75 L 4.18 L Hgb 9.0 L 10.2 L Hct 29.7 L 33.6 L MCV 79.1 L 80.4 MCH 24.0 L 24.4 L MCHC 30.3 30.3 RDW 22.5 H 21.8 H Plt Count 360 347 Neut % (Auto) 78.0 H Lymph % (Auto) 8.3 L [place] % (Auto) 11.2 Eos % (Auto) 1.7 L Baso % (Auto) 0.8 Neut # (Auto) 7900 H Lymph # (Auto) 800 L [place] # (Auto) 1100 H Eos # (Auto) 200 Baso # (Auto) 100 RBC Morphology See below Hypochromasia 1+ H Poikilocytosis 1+ H Anisocytosis 2+ H Microcytosis 1+ H ABG Sample Site ABG pH ABG pCO2 ABG pO2 ABG HCO3 ABG Total CO2 ABG O2 Saturation ABG Base Excess Mark Test Sodium 129 L Potassium 3.6 Chloride 97 L Carbon Dioxide 30 BUN 20 Creatinine 1.89 H Estimated GFR 39 L BUN/Creatinine Ratio 10.6 Glucose 84 Calcium 7.9 L Blood Type O Positive Antibody Screen Negative Crossmatch See Detail 06/02/24 06/02/24 10:45 13:05 WBC RBC Hgb Hct MCV MCH MCHC RDW Plt Count Neut % (Auto) Lymph % (Auto) [place] % (Auto) Eos % (Auto) Baso % (Auto) Neut # (Auto) Lymph # (Auto) [place] # (Auto) Eos # (Auto) Baso # (Auto) RBC Morphology Hypochromasia Poikilocytosis Anisocytosis Microcytosis ABG Sample Site Right radial ABG pH 7.24 L* ABG pCO2 84.6 H* ABG pO2 88 ABG HCO3 36 H ABG Total CO2 36 H ABG O2 Saturation 94 L ABG Base Excess 6.2 H Mark Test Positive Sodium 134 L Potassium 3.8 Chloride 97 L Carbon Dioxide 34 H BUN 18 Creatinine 2.07 H Estimated GFR 35 L BUN/Creatinine Ratio 8.7 Glucose 100 Calcium 8.3 L Blood Type Antibody Screen Crossmatch [facility] Medical History (Updated 05/31/24 @ 16:57 by Evans Winters MD) Ascending colon malignant neoplasm Social History household members: significant other Smoking Status: Never smoker alcohol intake: current Assessment & Plan Assessment & Plan narrative: 1. Fungating right colon mass, felt to be cancer Staging CT done yesterday which revealed no evidence of metastases in the lungs. Cystic appearing lesions in the liver were too small to characterize but felt to be related to his polycystic kidney disease. Plans are for him to undergo surgical resection later today. I have discussed my concerns with the patient's that his pulmonary hygiene is at risk, especially in the setting of his obviously undiagnosed obstructive sleep apnea, prior stroke and sedentary lifestyle at baseline, obesity, and his current oxygen need. Discussed that I would like him to be up in the chair as much as possible today. Advised that postoperatively we will need to work aggressively on his pulmonary hygiene as well. 2. Acute blood loss anemia Hemoglobin was 9 this morning. Up to 10.2 on 2nd lab draw. No transfusion needed at this time. 3. Untreated obstructive sleep apnea He will require BiPAP during sleep in order to promote pulmonary hygiene. 4. Acute hypoxic respiratory failure Patient is currently requiring approximately 6 L via facemask but does desaturate when he has apneic episodes. Etiology is likely a combination of sleep apnea, obesity hypoventilation syndrome, and atelectasis. As noted, will encourage having him upright as much as possible. 5. CKD 4 Secondary to polycystic kidney disease. Stable. 6. 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 Hypertension Receiving his usual home dose of metoprolol. Home dose of torsemide and amlodipine are being held. Code status Full Prophylaxis Chemical prophylaxis deferred in the setting of GI bleeding Disposition Pending Time-Based Coding :: [TOTAL MINUTES] spent with patient and on the chart (including review of chart, obtaining history, exam, reviewing outside data, placing orders, documenting exam and treatment plan, and counseling patient) on [DATE].
[2024-06-03] VITALS (60 sets, daily range): BP systolic 110–170; BP diastolic 55–76; PULSE 65–102; RESP 16–41; TEMP 31–37.1; O2SAT 90–98
[2024-06-03] MEDS: SODIUM CHLORIDE 0.9% 1,000 ML 84 ML IV (01:23)
[2024-06-03 04:47] LABS: Carbon Dioxide 29 mmol/L (22-32); Chloride 103 mmol/L (98-107); Glucose 148 mg/dL (80-110); HEMOLYSIS < 15 (0-50); Potassium 3.4 mmol/L (3.4-5.1); Sodium 136 mmol/L (137-145)
[2024-06-03 04:52] LABS: BUN Creatinine Ratio 10.3 (6-22); Blood Urea Nitrogen 20 mg/dL (9-20); Estimated Glomerular Filt Rate 38 mL/min (>60)
[2024-06-03 05:26] LABS: Hematocrit 28.9 % (41-53); Hemoglobin 8.7 g/dL (13.5-17.5); Mean Corpuscular HGB Conc 30.1 % (30-36); Mean Corpuscular Hemoglobin 24.2 PG (26-34); Mean Corpuscular Volume 80.5 fL (80-100); Platelet Count 327 X10^3/uL (150-400); Red Blood Cell Count 3.59 X10^6/uL (4.5-5.9); White Blood Cell Count 6.6 X10^3/uL (4.5-11.0)
--- NOTE | 2024-06-03 07:09 | DI.RAD.S_ITS ---
PROCEDURE: XR CHEST 1V INDICATIONS: Acute hypoxic respiratory failure TECHNIQUE: One view of the chest was acquired. COMPARISON: [facility], , XR CHEST 1V, 05/29/2024, 1:54. FINDINGS: Surgical changes and devices: None. Lungs and pleura: Low lung volumes. Left base hazy opacity may represent atelectasis and/or small pleural effusion. No pneumothorax. Mediastinum: Mediastinal contours appear normal. Heart size is enlarged. Bones and chest wall: No suspicious bony lesions. Overlying soft tissues appear unremarkable. IMPRESSION: Low lung volumes. Left base hazy opacity may represent atelectasis and/or small pleural effusion. Approved by: Leilani Nicole M.D.,Ph.D. on 06/03/2024 at 8:51
[2024-06-03] MEDS: ALBUTEROL 2.5 MG/3 ML NEB (ADULT) INH ×2 (07:30→20:14)
[2024-06-03] MEDS: POTASSIUM CHLORIDE 20 MEQ TAB 40 MEQ PO (09:41)
[2024-06-03] MEDS: PREGABALIN 75 MG CAPSULE PO ×2 (09:41→20:40)
[2024-06-03] MEDS: metroNIDAZOLE 500 MG TABLET PO ×4 (09:41→20:40)
[2024-06-03] MEDS: FERROUS SULFATE 325 MG TABLET PO (09:42)
[2024-06-03] MEDS: PANTOPRAZOLE 40 MG VIAL IV ×2 (09:42→20:41)
[2024-06-03] MEDS: METOPROLOL ER 50 MG TABLET 200 MG PO (09:42)
[2024-06-03] MEDS: TORSEMIDE 10 MG TABLET 60 MG PO (09:42)
--- NOTE | 2024-06-03 10:37 | P.PN_ITS ---
Subjective Subjective Interval history: 63-year-old male with polycystic kidney disease, CKD stage 4, history of hemorrhagic left CVA in 2013, status post evacuation with residual right-sided weakness, who was admitted with a lower GI bleed. He was found to have a 10 cm fungating mass in the right colon. He was scheduled to go to the operating room yesterday afternoon for resection, but it was canceled due to development of acute hypoxic respiratory failure and acute metabolic encephalopathy. Patient was notably drowsy throughout the day yesterday. He required oxygen via facemask. An ABG was done in the afternoon and revealed a significant respiratory acidosis with a pH of 7.24, pCO2 of 80 5, bicarb of 36, O2 sat 94%. Was placed on BiPAP through the day and his mentation improved. He again wore BiPAP for most of the night. This morning, he reports he is feeling fairly well. He denies any shortness of breath. He does report some cough with sputum production. His states he has this at home as well. He denies any abdominal pain. He has been having some watery stools. Exam Vital Signs (past 8 hours): - 06/03/24 03:00 06/03/24 03:01 06/03/24 03:01 Temperature Pulse Rate 88 88 Respiratory Rate 19 19 Blood Pressure 152/67 H Pulse Oximetry 93 93 Oxygen Delivery Method Oxygen Flow Rate Fraction of Inspired Oxygen 06/03/24 03:30 06/03/24 04:00 06/03/24 04:00 Temperature Pulse Rate 87 80 Respiratory Rate 23 19 Blood Pressure Pulse Oximetry 93 93 Oxygen Delivery Method BiPAP Oxygen Flow Rate Fraction of Inspired Oxygen 06/03/24 04:00 06/03/24 04:00 06/03/24 04:30 Temperature Pulse Rate 85 Respiratory Rate 19 Blood Pressure 127/58 L 110/55 L Pulse Oximetry 94 Oxygen Delivery Method Oxygen Flow Rate Fraction of Inspired Oxygen 45 06/03/24 05:00 06/03/24 05:00 06/03/24 05:30 Temperature Pulse Rate 69 68 Respiratory Rate 16 16 Blood Pressure 110/55 L Pulse Oximetry 90 L 91 Oxygen Delivery Method Oxygen Flow Rate Fraction of Inspired Oxygen 06/03/24 06:00 06/03/24 06:00 06/03/24 06:30 Temperature Pulse Rate 76 76 Respiratory Rate 16 16 Blood Pressure 121/59 L Pulse Oximetry 92 94 Oxygen Delivery Method Oxygen Flow Rate Fraction of Inspired Oxygen 06/03/24 07:00 06/03/24 07:00 06/03/24 07:30 Temperature Pulse Rate 72 85 Respiratory Rate 16 18 Blood Pressure 127/58 L Pulse Oximetry 95 96 Oxygen Delivery Method Nasal Cannula Oxygen Flow Rate 7 Fraction of Inspired Oxygen 06/03/24 07:30 06/03/24 08:00 06/03/24 08:00 Temperature Pulse Rate 85 100 H Respiratory Rate 23 26 H Blood Pressure 135/61 Pulse Oximetry 96 94 Oxygen Delivery Method Oxygen Flow Rate Fraction of Inspired Oxygen 06/03/24 08:00 06/03/24 08:30 06/03/24 09:00 Temperature Pulse Rate 97 H 100 H Respiratory Rate 26 H 24 Blood Pressure Pulse Oximetry 91 93 Oxygen Delivery Method High Flow Nasal Cannula Oxygen Flow Rate Fraction of Inspired Oxygen 06/03/24 09:22 06/03/24 09:22 06/03/24 09:30 Temperature 97.6 F Pulse Rate 100 H 102 H Respiratory Rate 24 28 H Blood Pressure 131/61 Pulse Oximetry 91 92 Oxygen Delivery Method Oxygen Flow Rate Fraction of Inspired Oxygen 06/03/24 09:42 06/03/24 10:26 Temperature Pulse Rate 91 H 91 H Respiratory Rate Blood Pressure 131/60 142/63 H Pulse Oximetry Oxygen Delivery Method Oxygen Flow Rate Fraction of Inspired Oxygen Fraction of Inspired Oxygen 45 SaO2/FiO2 Ratio 242 Oxygen Delivery Method High Flow Nasal Cannula Oxygen Flow Rate 7 Narrative Exam Narrative: GEN: Alert and oriented x 3, NAD HEENT:NC, Face symmetric CHEST: Respiratory excursions symmetric, diminished breath sounds in the left base, otherwise coarse but CTAB CV: RRR, no M/R/G ABD: Soft, obese, mild tenderness in the left lower quadrant,ND, BT present in all 4 quadrants, body habitus limits exam EXTR: warm, well perfused, no C/C/E, chronic venous stasis changes noted to bilateral lower extremities SKIN: warm and dry, no rash NEURO: Alert and oriented x 3, flaccid right upper extremity Objective Labs 06/03/24 05:14 06/03/24 04:20 Labs: Laboratory Results - last 24 hr 06/02/24 06/02/24 06/03/24 10:45 13:05 04:20 WBC RBC Hgb Hct MCV MCH MCHC RDW Plt Count ABG Sample Site Right radial ABG pH 7.24 L* ABG pCO2 84.6 H* ABG pO2 88 ABG HCO3 36 H ABG Total CO2 36 H ABG O2 Saturation 94 L ABG Base Excess 6.2 H Mark Test Positive Sodium 134 L 136 L Potassium 3.8 3.4 Chloride 97 L 103 Carbon Dioxide 34 H 29 BUN 18 20 Creatinine 2.07 H 1.94 H Estimated GFR 35 L 38 L BUN/Creatinine Ratio 8.7 10.3 Glucose 100 148 H Calcium 8.3 L 8.0 L Blood Type Antibody Screen 06/03/24 06/03/24 05:14 07:06 WBC 6.6 RBC 3.59 L Hgb 8.7 L Hct 28.9 L MCV 80.5 MCH 24.2 L MCHC 30.1 RDW 22.0 H Plt Count 327 ABG Sample Site ABG pH ABG pCO2 ABG pO2 ABG HCO3 ABG Total CO2 ABG O2 Saturation ABG Base Excess Mark Test Sodium Potassium Chloride Carbon Dioxide BUN Creatinine Estimated GFR BUN/Creatinine Ratio Glucose Calcium Blood Type O Positive Antibody Screen Negative [facility] Medical History (Updated 05/31/24 @ 16:57 by Evans Winters MD) Ascending colon malignant neoplasm Social History household members: significant other Smoking Status: Never smoker alcohol intake: current Assessment & Plan Assessment & Plan narrative: 1. Fungating right colon mass, felt to be cancer Staging CT done on June 01 revealed no evidence of metastases in the lungs. Cystic appearing lesions in the liver were too small to characterize but felt to be related to his polycystic kidney disease. The plan was for him to undergo surgical resection on June 02, however this was delayed secondary to development of acute hypoxic respiratory failure. This is likely due to a combination of untreated obstructive sleep apnea, poor mobility, poor pulmonary hygiene, and sedation he received for his colonoscopy. Again discussed with his spouse today the need for aggressive pulmonary hygiene and a goal to get his oxygen need ideally down to 2 liters/minute prior to proceeding with surgical intervention. Recommended that if he were to develop lower GI bleeding again and surgical resection becomes emergent prior to his respiratory status stabilizing, I would recommend transferring him to a higher level of care where there are multiple specialties available for optimizing his medical needs. She is in agreement. 2. Acute blood loss anemia Hemoglobin is down to 8.7 today. Likely the drop is secondary to equilibration. Will repeat an H and H around noon today. No evidence of ongoing bleeding. 3. Untreated obstructive sleep apnea He will require BiPAP during sleep in order to promote pulmonary hygiene. 4. Acute hypoxic respiratory failure Patient continues to require 6 L via facemask but does desaturate when he has apneic episodes. Etiology is likely a combination of sleep apnea, obesity hypoventilation syndrome, and atelectasis. At baseline, he does not require any oxygen. Will continue having him out of bed as much as possible. Given his diminished breath sounds on the left, will obtain a chest x-ray. 5. CKD 4 Secondary to polycystic kidney disease. Stable. 6. 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 Hypertension Receiving his usual home dose of metoprolol and torsemide. Amlodipine has been held. Blood pressures are normotensive. Code status Full Prophylaxis Chemical prophylaxis deferred in the setting of GI bleeding Disposition Pending Time-Based Coding :: [TOTAL MINUTES] spent with patient and on the chart (including review of chart, obtaining history, exam, reviewing outside data, placing orders, documenting exam and treatment plan, and counseling patient) on [DATE].
[2024-06-03 12:15] LABS: Hematocrit 32.4 % (41-53); Hemoglobin 9.8 g/dL (13.5-17.5)
--- NOTE | 2024-06-03 12:26 | CM.DPNOTE ---
DCP note COMPENSATION AND BENEFITS ADMINISTRATOR reviewed EMR. Per hospitalist in morning rounds, pt continues to need 6ltrs O2 (none at baseline). H&h fluctuating. thinking if lower GI bleed develops prior to respiratory status improving, likely would recommend transfer to higher level of care. CM team will plan to follow clinical course closely for final discharge needs and recommendations. Plan is for home with Sig other Rocío when medically stable vs transfer. KENYETTA Ramirez
--- NOTE | 2024-06-03 14:36 | P.PN_ITS ---
Subjective Subjective Date Patient Seen: 06/03/24 Time Patient Seen: 14:36 Interval history: Patient is sitting up in a chair. Still on 7-8 L nasal cannula. Tolerating a diet. His respiratory excursion still seems somewhat shallow and rapid. Exam Vital Signs (past 8 hours): - 06/03/24 07:00 06/03/24 07:00 06/03/24 07:30 Temperature Pulse Rate 72 85 Respiratory Rate 16 18 Blood Pressure 127/58 L Pulse Oximetry 95 96 Oxygen Delivery Method Nasal Cannula Oxygen Flow Rate 7 06/03/24 07:30 06/03/24 08:00 06/03/24 08:00 Temperature Pulse Rate 85 100 H Respiratory Rate 23 26 H Blood Pressure 135/61 Pulse Oximetry 96 94 Oxygen Delivery Method Oxygen Flow Rate 06/03/24 08:00 06/03/24 08:30 06/03/24 09:00 Temperature Pulse Rate 97 H 100 H Respiratory Rate 26 H 24 Blood Pressure Pulse Oximetry 91 93 Oxygen Delivery Method High Flow Nasal Cannula Oxygen Flow Rate 06/03/24 09:22 06/03/24 09:22 06/03/24 09:30 Temperature 97.6 F Pulse Rate 100 H 102 H Respiratory Rate 24 28 H Blood Pressure 131/61 Pulse Oximetry 91 92 Oxygen Delivery Method Oxygen Flow Rate 06/03/24 09:42 06/03/24 10:00 06/03/24 10:26 Temperature Pulse Rate 91 H 92 H 91 H Respiratory Rate 23 Blood Pressure 131/60 142/63 H Pulse Oximetry 97 Oxygen Delivery Method Oxygen Flow Rate 06/03/24 10:27 06/03/24 10:27 06/03/24 10:30 Temperature Pulse Rate 91 H 90 Respiratory Rate 27 H 29 H Blood Pressure 142/63 H Pulse Oximetry 96 98 Oxygen Delivery Method Oxygen Flow Rate 06/03/24 11:00 06/03/24 11:42 06/03/24 11:46 Temperature Pulse Rate 87 85 84 Respiratory Rate 25 H 17 Blood Pressure Pulse Oximetry 97 94 97 Oxygen Delivery Method Oxygen Flow Rate 06/03/24 11:46 06/03/24 12:00 06/03/24 12:00 Temperature 98.0 F Pulse Rate 83 Respiratory Rate 25 H Blood Pressure 156/71 H Pulse Oximetry 97 Oxygen Delivery Method High Flow Nasal Cannula Oxygen Flow Rate 06/03/24 12:30 06/03/24 13:00 Temperature Pulse Rate 85 83 Respiratory Rate 24 31 H Blood Pressure Pulse Oximetry 96 97 Oxygen Delivery Method Oxygen Flow Rate Fraction of Inspired Oxygen 45 SaO2/FiO2 Ratio 242 Oxygen Delivery Method High Flow Nasal Cannula Oxygen Flow Rate 7 Narrative Exam Narrative: Gen: NAD, sitting comfortably in chair, appears well HEENT: Sclera are anicteric, head is normocephalic and atraumatic, trachea is midline. CV: RRR, no JVD Resp: clear to auscultation bilaterally, equal chest wall movement bilaterally, somewhat labored Abd: soft, nontender, normoactive bowel sounds Ext: no edema, full range of motion Neuro: Cranial nerves II-XII grossly intact, no focal deficits Skin: No erythema or ecchymosis Objective Labs 06/03/24 12:09 06/03/24 04:20 Labs: Laboratory Results - last 24 hr 06/03/24 06/03/24 06/03/24 04:20 05:14 07:06 WBC 6.6 RBC 3.59 L Hgb 8.7 L Hct 28.9 L MCV 80.5 MCH 24.2 L MCHC 30.1 RDW 22.0 H Plt Count 327 Sodium 136 L Potassium 3.4 Chloride 103 Carbon Dioxide 29 BUN 20 Creatinine 1.94 H Estimated GFR 38 L BUN/Creatinine Ratio 10.3 Glucose 148 H Calcium 8.0 L Blood Type O Positive Antibody Screen Negative 06/03/24 12:09 WBC RBC Hgb 9.8 L Hct 32.4 L MCV MCH MCHC RDW Plt Count Sodium Potassium Chloride Carbon Dioxide BUN Creatinine Estimated GFR BUN/Creatinine Ratio Glucose Calcium Blood Type Antibody Screen [facility] Medical History (Updated 06/03/24 @ 14:37 by Evans Winters MD) Ascending colon malignant neoplasm Social History household members: significant other Smoking Status: Never smoker alcohol intake: current Assessment & Plan Assessment and plan (1) Ascending colon malignant neoplasm: Status: Acute (2) Hypoxia: Status: Acute (3) Renal insufficiency: Status: Acute Assessment & Plan narrative: Discussed with anesthesia staff here, patient is not appropriate operative risk for this hospital. Continue to optimize respiratory status and renal status, then transfer to a larger hospital for definitive care. Time-Based Coding :: [TOTAL MINUTES] spent with patient and on the chart (including review of chart, obtaining history, exam, reviewing outside data, placing orders, documenting exam and treatment plan, and counseling patient) on [DATE]. PROFEE Charge codes Subsequent inpatient/observation care: [id number]
[2024-06-03] MEDS: SODIUM CHLORIDE 0.9% FLUSH 10 ML IV (20:41)
[2024-06-04] VITALS (61 sets, daily range): BP systolic 125–133; BP diastolic 57–70; PULSE 72–98; RESP 11–44; TEMP 31–37.7; O2SAT 86–98
--- NOTE | 2024-06-04 06:45 | PC.NURSE ---
Assistant Art Director Note-Patient slept with Bipap on overnight, SpO2 >92%. Had 2 small brown loose stools, lots of flatus, denies pain or nausea. VSS.
[2024-06-04 07:17] LABS: Basophils Absolute Auto 100 /uL (0-100); Basophils Percent Auto 1.1 % (0-2); Eosinophils Absolute Auto 300 /uL (0-450); Eosinophils Percent Auto 3.6 % (2-4); Hemoglobin 9.4 g/dL (13.5-17.5); Lymphocytes Absolute Auto 800 /uL (1100-4500); Lymphocytes Percent Auto 10.6 % (25-40); Mean Corpuscular HGB Conc 30.3 % (30-36); Mean Corpuscular Hemoglobin 24.2 PG (26-34); Mean Corpuscular Volume 80.1 fL (80-100); Monocytes Absolute Auto 700 /uL (0-900); Monocytes Percent Auto 9.4 % (3-14); Neutrophils Absolute Auto 5900 /uL (1500-7000); Neutrophils Percent Auto 75.3 % (50-75); Platelet Count 363 X10^3/uL (150-400); Red Blood Cell Count 3.87 X10^6/uL (4.5-5.9); Red Cell Distribution Width 22.4 % (11.6-14.8); White Blood Cell Count 7.8 X10^3/uL (4.5-11.0)
[2024-06-04] MEDS: ALBUTEROL 2.5 MG/3 ML NEB (ADULT) INH ×2 (07:24→20:11)
[2024-06-04 07:25] LABS: Add Manual Diff / Slide Review SLIDE REVIEW
[2024-06-04 07:44] LABS: BUN Creatinine Ratio 11.3 (6-22); Blood Urea Nitrogen 22 mg/dL (9-20); Calcium 8.6 mg/dL (8.4-10.2); Carbon Dioxide 32 mmol/L (22-32); Chloride 102 mmol/L (98-107); Estimated Glomerular Filt Rate 38 mL/min (>60); Glucose 114 mg/dL (80-110); HEMOLYSIS < 15 (0-50); Potassium 3.8 mmol/L (3.4-5.1); Sodium 138 mmol/L (137-145)
[2024-06-04 08:04] LABS: Anisocytosis 3+
[2024-06-04 08:06] LABS: Microcytosis 1+
[2024-06-04] MEDS: METOPROLOL ER 50 MG TABLET 200 MG PO (08:17)
[2024-06-04] MEDS: PREGABALIN 75 MG CAPSULE PO ×2 (08:18→20:17)
[2024-06-04] MEDS: PANTOPRAZOLE 40 MG VIAL IV ×2 (08:18→20:17)
[2024-06-04] MEDS: SODIUM CHLORIDE 0.9% FLUSH 10 ML IV ×2 (08:18→20:17)
[2024-06-04] MEDS: metroNIDAZOLE 500 MG TABLET PO ×4 (08:18→20:17)
[2024-06-04] MEDS: TORSEMIDE 10 MG TABLET 60 MG PO (08:18)
[2024-06-04] MEDS: FERROUS SULFATE 325 MG TABLET PO (08:21)
--- NOTE | 2024-06-04 08:22 | P.PN_ITS ---
Subjective Subjective Interval history: Summary: 63-year-old male with polycystic kidney disease, CKD stage 4, history of hemorrhagic left CVA in 2013, status post evacuation with residual right- sided weakness, who was admitted with a lower GI bleed. He was found to have a 10 cm fungating mass in the right colon. He was scheduled to go to the operating room yesterday afternoon for resection, but it was canceled due to development of acute hypoxic respiratory failure and acute metabolic encephalopathy. 06/03: Patient was notably drowsy throughout the day yesterday. He required oxygen via facemask. An ABG was done in the afternoon and revealed a significant respiratory acidosis with a pH of 7.24, pCO2 of 80 5, bicarb of 36, O2 sat 94%. Was placed on BiPAP through the day and his mentation improved. He again wore BiPAP for most of the night. S: He was doing well. No pain or difficulty breathing during the day. He has been on BiPAP at night for his undiagnosed CALDERON. Exam Vital Signs (past 8 hours): - 06/04/24 00:30 06/04/24 01:00 06/04/24 01:30 Temperature Pulse Rate 75 86 88 Respiratory Rate 20 24 26 H Blood Pressure Pulse Oximetry 93 95 96 Oxygen Delivery Method Oxygen Flow Rate Fraction of Inspired Oxygen 06/04/24 02:00 06/04/24 02:30 06/04/24 03:00 Temperature Pulse Rate 87 73 83 Respiratory Rate 25 H 19 24 Blood Pressure Pulse Oximetry 96 93 91 Oxygen Delivery Method Oxygen Flow Rate Fraction of Inspired Oxygen 06/04/24 03:30 06/04/24 03:36 06/04/24 03:36 Temperature 99.4 F Pulse Rate 82 81 Respiratory Rate 26 H 27 H Blood Pressure 125/57 L Pulse Oximetry 93 93 Oxygen Delivery Method Oxygen Flow Rate 2 Fraction of Inspired Oxygen 06/04/24 03:56 06/04/24 07:24 06/04/24 08:15 Temperature Pulse Rate 72 81 Respiratory Rate 20 30 H Blood Pressure 131/58 L Pulse Oximetry 92 95 Oxygen Delivery Method High Flow Nasal Cannula Oxygen Flow Rate 4 2 Fraction of Inspired Oxygen 45 36 06/04/24 08:17 Temperature Pulse Rate 84 Respiratory Rate Blood Pressure 131/58 L Pulse Oximetry Oxygen Delivery Method Oxygen Flow Rate Fraction of Inspired Oxygen Fraction of Inspired Oxygen 36 SaO2/FiO2 Ratio 255 Oxygen Delivery Method High Flow Nasal Cannula Oxygen Flow Rate 2 Narrative Exam Narrative: NAD, alert and oriented. Fluent speech. Lungs are clear, normal rate and effort. Some scattered rhonchi are noted. Heart is regular, no murmur gallop or rub. Abdomen is soft, non distended. Extremities are free of edema. Objective Labs 06/04/24 06:47 06/04/24 06:47 Labs: Laboratory Results - last 24 hr 06/03/24 06/04/24 12:09 06:47 WBC 7.8 RBC 3.87 L Hgb 9.8 L 9.4 L Hct 32.4 L 31.0 L MCV 80.1 MCH 24.2 L MCHC 30.3 RDW 22.4 H Plt Count 363 Neut % (Auto) 75.3 H Lymph % (Auto) 10.6 L [place] % (Auto) 9.4 Eos % (Auto) 3.6 Baso % (Auto) 1.1 Neut # (Auto) 5900 Lymph # (Auto) 800 L [place] # (Auto) 700 Eos # (Auto) 300 Baso # (Auto) 100 RBC Morphology See below Anisocytosis 3+ H Microcytosis 1+ H Sodium 138 Potassium 3.8 Chloride 102 Carbon Dioxide 32 BUN 22 H Creatinine 1.94 H Estimated GFR 38 L BUN/Creatinine Ratio 11.3 Glucose 114 H Calcium 8.6 PFSH Medical History Ascending colon malignant neoplasm Social History household members: significant other Smoking Status: Never smoker alcohol intake: current Assessment & Plan Assessment & Plan narrative: 1. Fungating right colon mass, active. 2. Acute blood loss anemia, active. 3. Untreated obstructive sleep apnea, active. He will require BiPAP during sleep in order to promote pulmonary hygiene. 4. Acute hypoxic respiratory failure, active. Patient continues to require 6 L via facemask but does desaturate when he has apneic episodes. Etiology is likely a combination of sleep apnea, obesity hypoventilation syndrome, and atelectasis. At baseline, he does not require any oxygen. Will continue having him out of bed as much as possible. Given his diminished breath sounds on the left, will obtain a chest x-ray. 5. CKD 4, stable. Secondary to polycystic kidney disease. Stable. 6. 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 Stable 7. Hypertension, stable. Receiving his usual home dose of metoprolol and torsemide. Amlodipine has been held. Blood pressures are normotensive. PLAN: -discuss with surgeon regarding whether or not he needs urgent surgery versus delayed outpatient follow up in outpatient surgery. -continue to optimize his breathing, BiPAP at night. Monitor hemoglobin. Code status Full Prophylaxis Chemical prophylaxis deferred in the setting of GI bleeding Time-Based Coding :: [TOTAL MINUTES] spent with patient and on the chart (including review of chart, obtaining history, exam, reviewing outside data, placing orders, documenting exam and treatment plan, and counseling patient) on [DATE].
--- NOTE | 2024-06-04 13:01 | P.PN_ITS ---
Subjective Subjective Date Patient Seen: 06/04/24 Time Patient Seen: 13:01 Interval history: Patient's breathing has improved, he is currently on 0-2 L with saturations of 88%. He is sitting up in a chair. Exam Vital Signs (past 8 hours): - 06/04/24 07:24 06/04/24 08:15 06/04/24 08:17 Temperature Pulse Rate 72 81 84 Respiratory Rate 20 30 H Blood Pressure 131/58 L 131/58 L Pulse Oximetry 92 95 Oxygen Delivery Method High Flow Nasal Cannula Oxygen Flow Rate 4 2 Fraction of Inspired Oxygen 36 06/04/24 08:47 06/04/24 12:00 Temperature 98.0 F Pulse Rate 90 88 Respiratory Rate 31 H Blood Pressure 126/59 L Pulse Oximetry 92 Oxygen Delivery Method Oxygen Flow Rate 2 Fraction of Inspired Oxygen Fraction of Inspired Oxygen 36 SaO2/FiO2 Ratio 255 Oxygen Delivery Method High Flow Nasal Cannula Oxygen Flow Rate 2 Narrative Exam Narrative: Gen: NAD, sitting comfortably in chair, appears well HEENT: Sclera are anicteric, head is normocephalic and atraumatic, trachea is midline. CV: RRR, no JVD Resp: clear to auscultation bilaterally, equal chest wall movement bilaterally Abd: soft, nontender, normoactive bowel sounds Ext: no edema, full range of motion Neuro: Cranial nerves II-XII grossly intact, no focal deficits Skin: No erythema or ecchymosis Objective Labs 06/04/24 06:47 06/04/24 06:47 Labs: Laboratory Results - last 24 hr 06/04/24 06:47 WBC 7.8 RBC 3.87 L Hgb 9.4 L Hct 31.0 L MCV 80.1 MCH 24.2 L MCHC 30.3 RDW 22.4 H Plt Count 363 Neut % (Auto) 75.3 H Lymph % (Auto) 10.6 L [place] % (Auto) 9.4 Eos % (Auto) 3.6 Baso % (Auto) 1.1 Neut # (Auto) 5900 Lymph # (Auto) 800 L [place] # (Auto) 700 Eos # (Auto) 300 Baso # (Auto) 100 RBC Morphology See below Anisocytosis 3+ H Microcytosis 1+ H Sodium 138 Potassium 3.8 Chloride 102 Carbon Dioxide 32 BUN 22 H Creatinine 1.94 H Estimated GFR 38 L BUN/Creatinine Ratio 11.3 Glucose 114 H Calcium 8.6 PFSH Medical History Ascending colon malignant neoplasm Social History household members: significant other Smoking Status: Never smoker alcohol intake: current Assessment & Plan Assessment and plan (1) Ascending colon malignant neoplasm: Status: Acute (2) Renal insufficiency: Status: Acute (3) Hypoxia: Status: Acute Plan Patient is not actively bleeding and does not require an urgent surgery. Discussed with our anesthesia staff, Dr. Morgan, and she feels the patient should undergo elective surgery at another facility that can manage ventilators and potentially dialysis postoperative period. Discussed with the hospitalist, Dr. Pedroza, about outpatient follow-up with Colorectal surgery at [facility]. Time-Based Coding :: [TOTAL MINUTES] spent with patient and on the chart (including review of chart, obtaining history, exam, reviewing outside data, placing orders, documenting exam and treatment plan, and counseling patient) on [DATE]. PROFEE Charge codes Subsequent inpatient/observation care: [id number]
--- NOTE | 2024-06-04 14:41 | DIET.CONS ---
Dietary Consultation Note Admission Date: 05/29/2024 02:56 Assessment: 63 y M admitted for low H&H, found to have ascending colon malignant neoplasm. RD screened for LOS. PMH of stroke and CKD 4 secondary to polycystic kidney disease. Pt found to be sleeping soundly, did not wake to name being called, x2. EMR reviewed. Per surgery, pt does not require urgent surgery and will undergo elective surgery outpatient at another facility. 100% PO intakes during stay. DFM reviewed for composition. No nutritional interventions needed at this time. Will continue to monitor PO intakes. Ht: 175.26 cm Wt: 117.934 kg BMI: 38.4 UBW: no weight hx Last BM: 06/03/24 (06/03/24 20:55) MNA: 12 Meliton Score: 16 Diet: 06/02/24 Dinner General (Regular) Diet Diet Modifications: Food Texture: Level 7 - Regular Liquid Consistency: Level 0 - Thin Nutrition Percent Meal Consumed 100% 06/03/24 20:00 Percent Meal Consumed 100% 06/03/24 12:00 Percent Meal Consumed 100% 06/03/24 09:49 Percent Meal Consumed 100% 06/02/24 18:00 Labs: RBC 3.87 X10^6/uL (4.5-5.9) L 06/04/24 06:47 Hgb 9.4 g/dL (13.5-17.5) L 06/04/24 06:47 Hct 31.0 % (41-53) L 06/04/24 06:47 Creatinine 1.94 mg/dL (0.66-1.25) H 06/04/24 06:47 NT-Pro-B Natriuret Pep 848 pg/mL (<125) H 05/28/24 22:10 Electronically Signed by: Rachele Verduzco 06/04/24 14:41 [address] [address]
--- NOTE | 2024-06-04 14:53 | CM.DPC ---
DCP Cont: Per MD and Surgeon, pt making progress with reducing his oxygen needs and attempting to continue to wean off 2LO2 and pt's does not appear to be actively bleeding and plan is to optimize pt's respirations for discharge home with outpt f/u with Davina regarding elective surgery at a larger hospital due to pt's comorbidities. Likely another day or two. KENYETTA Martines
[2024-06-04 17:27] LABS: Allen Test for ABG Passed? Positive; Base Excess ABG 8.7 mmol/L (-2-3); Blood Gas Collection Site Right Radial; Delivery System Cannula; HCO3 ABG 35 mmol/L (23-27); Oxygen Saturation ABG 91 % (95-100); PCO2 ABG 58.2 mmHg (35-45); PO2 ABG 64 mmHg (80-100); TCO2 ABG 34 mmol/L (23-27); pH ABG 7.39 (7.35-7.45)
[2024-06-05] VITALS (37 sets, daily range): BP systolic 122–143; BP diastolic 55–74; PULSE 65–114; RESP 12–34; TEMP 31–37; O2SAT 88–97
[2024-06-05] MEDS: ALBUTEROL 2.5 MG/3 ML NEB (ADULT) INH ×3 (07:25→19:50)
--- NOTE | 2024-06-05 08:17 | DI.RAD.S_ITS ---
PROCEDURE: XR CHEST 1V INDICATIONS: Dyspnea TECHNIQUE: One view of the chest was acquired. COMPARISON: [facility], CR, XR CHEST 1V, 06/03/2024, 8:23. FINDINGS: Surgical changes and devices: None. Lungs and pleura: Low lung volumes without significant change. No developing consolidations. No pleural effusions or pneumothorax. Mediastinum: Stable cardiomegaly. Stable aortic contour. No significant central venous congestion. Bones and chest wall: No suspicious bony lesions. Overlying soft tissues appear unremarkable. IMPRESSION: Stable heart and lungs. Dictated by: Lala Mccollum M.D. on 06/05/2024 at 9:42 Approved by: Lala Mccollum M.D. on 06/05/2024 at 9:43
--- NOTE | 2024-06-05 08:26 | DI.ECHO.S_ITS ---
[facility] : : [address] : : [place] : : [id number] : : Phone: [phone] Echocardiogram Report + + :Name: POLO MACARIO Study Date: 06/05/2024 Height: 69 in : :Hospital ReadingLocation: Weight: 260 lb : : Gender: Male BSA: 2.3 m2 : :: 1960 Age: 63 yrs BP: 122/55 mmHg: :Reason For Study: DYSPNEA : :Ordering Physician: CLAUDINE, : :LORETO Holland Performed By: Anahy Sandoval : :Referring: LORETO CHOW : + + Interpretation Summary The left ventricle is normal in size. There is moderate concentric left ventricular hypertrophy. There is a increased echo reflectance of LV myocardium. Differential diagnosis: Hypertensive heart disease versus infiltrative cardiomyopathy. The left ventricle is hyperdynamic. The ejection fraction is estimated to be 70-75%. The echo findings are consistent with trivial dynamic left ventricular intracavitary obstruction. The right ventricle is normal in size and function. There is mild aortic regurgitation. The IVC is of normal diameter and collapses greater than 50% with a sniff. This suggests a low right atrial pressure of 3 mm Hg. In short axis view behind posterior lateral wall of left ventricle, small loculated pericardial effusion without any echo evidence of tamponade. Liver cyst present. Procedure: A two-dimensional transthoracic echocardiogram with color flow and Doppler was performed. The study quality was technically difficult. There is no prior echocardiogram noted for this patient. The patient was in sinus rhythm with heart rates between 89-100 bpm during the exam. The patient had a bundle branch block rhythm during the exam. Left Ventricle: The left ventricle is normal in size. There is moderate concentric left ventricular hypertrophy. The echo findings are consistent with trivial dynamic left ventricular intracavitary obstruction. The left ventricle is hyperdynamic. The ejection fraction is estimated to be 70-75%. Septal motion is consistent with conduction abnormality. Diastolic parameters suggest a relaxation abnormality of the left ventricle, consistent with probable normal filling pressures. Right Ventricle: The right ventricle is normal in size and function. Atria: The left atrium is mildly dilated. Right atrial size is normal. There is no Doppler evidence for an interatrial shunt. Mitral Valve: The mitral valve leaflets appear borderline thickened, but open well. There is mild mitral annular calcification. There is trace mitral regurgitation. Aortic Valve: The aortic valve is trileaflet. The aortic valve opens well. There is no aortic valve stenosis. There is mild aortic regurgitation. Tricuspid Valve: The tricuspid valve is normal. There is trace tricuspid regurgitation. Pulmonary artery pressures cannot be estimated because of the lack of a measurable TR jet velocity. Pulmonic Valve: The pulmonic valve leaflets are thin and pliable; valve motion is normal. There is no pulmonic valvular regurgitation. Great Vessels: The aortic root is normal size. The dimensions of the ascending aorta are normal. The IVC is of normal diameter and collapses greater than 50% with a sniff. This suggests a low right atrial pressure of 3 mm Hg. Pericardium/ Pleura There is an anterior echo-free space consistent with a fat pad. There are no echocardiographic or Doppler indications for cardiac tamponade. In short axis view behind posterior lateral wall of left ventricle, small loculated pericardial effusion without any echo evidence of tamponade. There is no pleural effusion. MMode/2D Measurements & Calculations LVIDd: 4.5 cm LVOT diam: 2.3 cm LVIDs: 2.6 cm Ao root diam: 4.0 cm FS: 42.2 % asc Aorta Diam: 3.6 cm EPSS: 0.41 cm Ao Arch Diam (Prox Trans): 2.6 cm IVSd: 1.5 cm LVPWd: 1.5 cm LV becerra. diameter/BSA (cm/m^2): 1.9 LV sys. diameter/BSA (cm/m^2): 1.1 LA A2 area: 29.8 cm2 RA long axis: 6.2 cm LA A4 area: 25.4 cm2 RA area: 18.1 cm2 LA length (vol): 7.2 cm RA vol: 44.8 ml LA vol: 89.7 ml RA : 19.4 ml/m2 LA vol index: 38.9 ml/m2 IVC diam: 1.4 cm RVD1 (basal): 3.7 cm RVD2 (mid): 3.4 cm TAPSE: 2.0 cm Doppler Measurements & Calculations Ao V2 max: 191.4 cm/sec LVOT Max Pierce: 164.4 cm/sec Ao V2 mean: 136.0 cm/sec LV V1 max P.8 mmHg Ao max P.7 mmHg LV V1 VTI: 32.0 cm Ao mean P.2 mmHg GENE(I,D): 4.0 cm2 Ao V2 VTI: 33.4 cm GENE(V,D): 3.6 cm2 sev ratio: 0.96 GENE indexed to BSA (cm^2/m^2): 1.7 MV E max pierce: 73.0 cm/sec PA V2 max: 116.1 cm/sec MV A max pierce: 113.3 cm/sec PA V2 mean: 76.3 cm/sec MV E/A: 0.64 PA mean P.7 mmHg Med Peak E' Pierce: 7.3 cm/sec PA pr(Accel): 53.3 mmHg E/E' med: 10.0 Lat Peak E' Pierce: 6.3 cm/sec E/E' lat: 11.5 E/e' average: 10.7 MV dec time: 0.18 sec SV(LVOT): 133.5 ml Reading Physician:01:23 PM
--- NOTE | 2024-06-05 08:30 | PC.NURSE ---
Patient seen by Percy this morning and given treatment, Percy says patient was on BIPAP for the night, on 5-6L Hi fam NC this morning. Patient alert, sitting upright in bed, good appetite waiting for breakfast. Dr. Pedroza updated, CXR taken. Plan for diuresis and ECHO today (now ordered by MD). Continue to monitor.
[2024-06-05] MEDS: FUROSEMIDE 40 MG/4 ML VIAL IV (08:51)
[2024-06-05] MEDS: PANTOPRAZOLE 40 MG VIAL IV ×2 (08:51→20:31)
[2024-06-05] MEDS: PREGABALIN 75 MG CAPSULE PO ×2 (09:02→20:31)
[2024-06-05] MEDS: METOPROLOL ER 50 MG TABLET 200 MG PO (09:02)
[2024-06-05] MEDS: SODIUM CHLORIDE 0.9% FLUSH 10 ML IV ×2 (09:02→20:32)
--- NOTE | 2024-06-05 09:17 | P.PN_ITS ---
Subjective Subjective Interval history: Summary: 63-year-old male with polycystic kidney disease, CKD stage 4, history of hemorrhagic left CVA in 2013, status post evacuation with residual right- sided weakness, who was admitted with a lower GI bleed. He was found to have a 10 cm fungating mass in the right colon. He was scheduled to go to the operating room yesterday afternoon for resection, but it was canceled due to development of acute hypoxic respiratory failure and acute metabolic encephalopathy. 06/03: Patient was notably drowsy throughout the day yesterday. He required oxygen via facemask. An ABG was done in the afternoon and revealed a significant respiratory acidosis with a pH of 7.24, pCO2 of 80 5, bicarb of 36, O2 sat 94%. Was placed on BiPAP through the day and his mentation improved. He again wore BiPAP for most of the night. He takes home torsemide, and appears to become volume overloaded here. Chest x- ray suggests pulmonary edema. S: He was comfortable on 5 L of oxygen and denies shortness a breath. No chest pain, or nausea. No abdominal pain. Exam Vital Signs (past 8 hours): - 06/05/24 01:30 06/05/24 02:00 06/05/24 02:30 Temperature Pulse Rate 78 78 68 Respiratory Rate 16 17 16 Blood Pressure Pulse Oximetry 93 93 94 Oxygen Delivery Method Oxygen Flow Rate Fraction of Inspired Oxygen 06/05/24 03:00 06/05/24 03:30 06/05/24 04:00 Temperature Pulse Rate 82 76 77 Respiratory Rate 16 16 16 Blood Pressure Pulse Oximetry 92 93 93 Oxygen Delivery Method Oxygen Flow Rate Fraction of Inspired Oxygen 06/05/24 04:30 06/05/24 04:56 06/05/24 05:00 Temperature Pulse Rate 76 65 Respiratory Rate 16 18 Blood Pressure Pulse Oximetry 93 93 Oxygen Delivery Method Oxygen Flow Rate Fraction of Inspired Oxygen 45 06/05/24 05:30 06/05/24 06:00 06/05/24 06:30 Temperature Pulse Rate 74 86 86 Respiratory Rate 20 27 H 23 Blood Pressure Pulse Oximetry 92 88 L 89 L Oxygen Delivery Method Oxygen Flow Rate Fraction of Inspired Oxygen 06/05/24 07:00 06/05/24 07:25 06/05/24 07:30 Temperature Pulse Rate 81 83 83 Respiratory Rate 26 H 20 13 Blood Pressure Pulse Oximetry 89 L 95 95 Oxygen Delivery Method High Flow Nasal Cannula Oxygen Flow Rate 4 Fraction of Inspired Oxygen 06/05/24 08:00 06/05/24 08:02 06/05/24 09:02 Temperature 97.7 F Pulse Rate 106 H 101 H 114 H Respiratory Rate 21 18 Blood Pressure 122/55 L Pulse Oximetry 90 L 89 L Oxygen Delivery Method High Flow Nasal Cannula Humidification Oxygen Flow Rate 5 6 Fraction of Inspired Oxygen 44 Fraction of Inspired Oxygen 44 SaO2/FiO2 Ratio 202 Oxygen Delivery Method High Flow Nasal Cannula,Humidification Oxygen Flow Rate 6 Narrative Exam Narrative: NAD, alert and oriented. Fluent speech. 5 L O2. Lungs are clear, normal rate and effort. Heart is regular, no murmur gallop or rub. Abdomen is soft, non distended. Extremities are with 2+ edema. Objective Imaging Chest x-ray: My impression: Pulmonary edema. Labs 06/04/24 06:47 06/04/24 06:47 Labs: Laboratory Results - last 24 hr 06/04/24 17:19 ABG Sample Site Right radial ABG pH 7.39 ABG pCO2 58.2 H ABG pO2 64 L ABG HCO3 35 H ABG Total CO2 34 H ABG O2 Saturation 91 L ABG Base Excess 8.7 H Mark Test Positive O2 Delivery Device Cannula [facility] Medical History Ascending colon malignant neoplasm Social History household members: significant other Smoking Status: Never smoker alcohol intake: current Assessment & Plan Assessment & Plan narrative: 1. Fungating right colon mass, active. 2. Acute blood loss anemia, active. 3. Untreated obstructive sleep apnea, active. He will require BiPAP during sleep in order to promote pulmonary hygiene. 4. Acute hypoxic respiratory failure, active. Patient continues to require 6 L via facemask but does desaturate when he has apneic episodes. Etiology is likely a combination of sleep apnea, obesity hypoventilation syndrome, and atelectasis. At baseline, he does not require any oxygen. Will continue having him out of bed as much as possible. Given his diminished breath sounds on the left, will obtain a chest x-ray. 5. CKD 4, stable. Secondary to polycystic kidney disease. Stable. 6. 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 Stable 7. Hypertension, stable. Receiving his usual home dose of metoprolol and torsemide. Amlodipine has been held. Blood pressures are normotensive. 8. Acute heart failure with unknown EF, new and active. PLAN: -Lasix 40 IV now, wean O2 as able. -echo to assess LV EF -delay discharge -BiPAP as needed DAVID: 1-2 days. Code status [employer] Teacher-Based Coding :: [TOTAL MINUTES] spent with patient and on the chart (including review of chart, obtaining history, exam, reviewing outside data, placing orders, documenting exam and treatment plan, and counseling patient) on [DATE].
[2024-06-05 10:13] LABS: Hemoglobin 9.9 g/dL (13.5-17.5); Mean Corpuscular HGB Conc 30.8 % (30-36); Mean Corpuscular Hemoglobin 24.7 PG (26-34); Mean Corpuscular Volume 80.3 fL (80-100); Platelet Count 362 X10^3/uL (150-400); Red Blood Cell Count 3.99 X10^6/uL (4.5-5.9); Red Cell Distribution Width 22.6 % (11.6-14.8)
--- NOTE | 2024-06-05 10:22 | P.PN_ITS ---
Subjective Subjective Date Patient Seen: 06/05/24 Time Patient Seen: 10:22 Interval history: Patient has overnight experienced breathing problems again requiring BiPAP and supplemental oxygen today. He is back in bed and looks uncomfortable. He is girlfriend is now present with him and understands the difficulty in doing surgery at a small hospital in some with unresolved cardiopulmonary and nephrology issues. He is making urine. Exam Vital Signs (past 8 hours): - 06/05/24 02:30 06/05/24 03:00 06/05/24 03:30 Temperature Pulse Rate 68 82 76 Respiratory Rate 16 16 16 Blood Pressure Pulse Oximetry 94 92 93 Oxygen Delivery Method Oxygen Flow Rate Fraction of Inspired Oxygen 06/05/24 04:00 06/05/24 04:30 06/05/24 04:56 Temperature Pulse Rate 77 76 Respiratory Rate 16 16 Blood Pressure Pulse Oximetry 93 93 Oxygen Delivery Method Oxygen Flow Rate Fraction of Inspired Oxygen 45 06/05/24 05:00 06/05/24 05:30 06/05/24 06:00 Temperature Pulse Rate 65 74 86 Respiratory Rate 18 20 27 H Blood Pressure Pulse Oximetry 93 92 88 L Oxygen Delivery Method Oxygen Flow Rate Fraction of Inspired Oxygen 06/05/24 06:30 06/05/24 07:00 06/05/24 07:25 Temperature Pulse Rate 86 81 83 Respiratory Rate 23 26 H 20 Blood Pressure Pulse Oximetry 89 L 89 L 95 Oxygen Delivery Method High Flow Nasal Cannula Oxygen Flow Rate 4 Fraction of Inspired Oxygen 06/05/24 07:30 06/05/24 08:00 06/05/24 08:02 Temperature 97.7 F Pulse Rate 83 106 H 101 H Respiratory Rate 13 21 18 Blood Pressure 122/55 L Pulse Oximetry 95 90 L 89 L Oxygen Delivery Method High Flow Nasal Cannula Humidification Oxygen Flow Rate 5 6 Fraction of Inspired Oxygen 44 06/05/24 09:02 Temperature Pulse Rate 114 H Respiratory Rate Blood Pressure Pulse Oximetry Oxygen Delivery Method Oxygen Flow Rate Fraction of Inspired Oxygen Fraction of Inspired Oxygen 44 SaO2/FiO2 Ratio 202 Oxygen Delivery Method High Flow Nasal Cannula,Humidification Oxygen Flow Rate 6 Narrative Exam Narrative: Gen: NAD, sitting comfortably in bed, appears well HEENT: Sclera are anicteric, head is normocephalic and atraumatic, trachea is midline. CV: Tachycardic, no JVD Resp: equal chest wall movement bilaterally Abd: soft, nontender, normoactive bowel sounds Ext: no edema, full range of motion Neuro: Cranial nerves II-XII grossly intact, no focal deficits Skin: No erythema or ecchymosis Objective Labs 06/05/24 09:38 06/04/24 06:47 Labs: Laboratory Results - last 24 hr 06/04/24 06/05/24 17:19 09:38 WBC 7.0 RBC 3.99 L Hgb 9.9 L Hct 32.0 L MCV 80.3 MCH 24.7 L MCHC 30.8 RDW 22.6 H Plt Count 362 ABG Sample Site Right radial ABG pH 7.39 ABG pCO2 58.2 H ABG pO2 64 L ABG HCO3 35 H ABG Total CO2 34 H ABG O2 Saturation 91 L ABG Base Excess 8.7 H Mark Test Positive O2 Delivery Device Cannula [facility] Medical History Ascending colon malignant neoplasm Social History household members: significant other Smoking Status: Never smoker alcohol intake: current Assessment & Plan Assessment and plan (1) Ascending colon malignant neoplasm: Status: Acute (2) Hypoxia: Status: Acute (3) Renal insufficiency: Status: Acute Plan No urgent need for surgery prior to cardiopulmonary and nephrology evaluation. Recommend establishing care at [facility] or [facility] in preparation for colon cancer surgery. Time-Based Coding :: [TOTAL MINUTES] spent with patient and on the chart (including review of chart, obtaining history, exam, reviewing outside data, placing orders, documenting exam and treatment plan, and counseling patient) on [DATE]. PROFEE Charge codes Subsequent inpatient/observation care: [id number]
[2024-06-05 10:38] LABS: BUN Creatinine Ratio 11.3 (6-22); Blood Urea Nitrogen 23 mg/dL (9-20); Calcium 8.6 mg/dL (8.4-10.2); Carbon Dioxide 33 mmol/L (22-32); Chloride 96 mmol/L (98-107); Estimated Glomerular Filt Rate 36 mL/min (>60); Glucose 173 mg/dL (80-110); HEMOLYSIS < 15 (0-50); Magnesium 1.6 mg/dL (1.6-2.3); Potassium 3.3 mmol/L (3.4-5.1); Sodium 135 mmol/L (137-145)
--- NOTE | 2024-06-05 11:05 | PT.IIE ---
Current Diagnoses Malignant neoplasm of ascending colon (05/29/24) Acute posthemorrhagic anemia (05/29/24) Disorder of kidney and ureter, unspecified (05/29/24) Hypoxemia (05/29/24) Surgery Performed Operation Date: 05/31/24 16:00 Actual Procedures p Esophagogastroduodenoscopy WITH BIOPSY - Evans Winters MD s Colonoscopy with Biopsy - Evans Winters MD Operation Date: 06/02/24 13:00 <No data on this case meets the specified criteria> Medical History (Last Reviewed 06/04/24 @ 11:31 by Mark Pedroza MD) Ascending colon malignant neoplasm Physical Therapy Inpatient Evaluation/Re-Eval M1 PT/OT-IP Prior Functional Status Start: 06/05/24 13:36 Freq: NEEDED Status: Active Protocol: Document 06/05/24 11:05 AB (Rec: 06/05/24 14:03 AB [id number]) Medical Review Prior Functional Status Medical History Reviewed Yes Communication able to make needs known Mobility and Gait pt stated that he was modified independent with all mobilities and ambulation using a quad cane indoors; uses electric w/c for outdoor long distance mobility. spouse assists pt if needed. pt usually transfers bed<> reclincer chair without use of quad cane and just reaches over and does a step transfers ; pt uses a R AFO but occasionally transfers without AFO. Social History Household Members significant other Living Arrangements House Number of Floors (Floors) One Floor Number of Stairs To Enter/Railing? no steps to enter Home Environment High Toilet,Walk in Shower Home Equipment Quad Cane,Manual Wheelchair, Power Wheelchair/Scooter, Shower Seat with Backrest,Hand Held Shower,Grab Bars Near Toilet,Grab Bars In Shower Additional Social History Comment has a grab bar close to the wall next to the bed that pt can use during transfers if needed. M2 PT-IP Current Condition Start: 06/05/24 13:36 Freq: NEEDED Status: Active Protocol: Document 06/05/24 11:05 AB (Rec: 06/05/24 14:03 AB [id number]) Physical Therapy Current Condition Current Condition Evaluation Date 06/05/24 Treatment Diagnosis GI bleed; R colon mass; difficulty in walking Onset Date 05/29/24 M3 PT-IP Subjective Start: 06/05/24 13:36 Freq: NEEDED Status: Active Protocol: Document 06/05/24 11:05 AB (Rec: 06/05/24 14:03 AB [id number]) Subjective Physical Therapy Visit Type Type Initial Evaluation Visit Start Time 11:05 Visit Stop Time 12:42 Notes pt seen for split visits: 1105 to 1116 am and 1220 to 1242. Number of [employer] COACH Visits 0 Physical Therapy Visit Comments Patient Comments agreeable to do PT M4 PT-IP Mobility and Gait Start: 06/05/24 13:36 Freq: NEEDED Status: Active Protocol: Document 06/05/24 11:05 AB (Rec: 06/05/24 14:03 AB [id number]) PT-Bed Mobility Assessment Supine to Sit Supine to Sit Minimal Assistance,Moderate Assistance,Head of Bed Elevated,Bedrails PT-Transfer Assessment Sit to and From Stand Sit to and from Stand Minimal Assistance,Moderate Assistance,1 Person Assistance ,Use of Upper Extremities Equipment Transfer Assistive Device Gait Belt,Large Based Quad Cane Orthotic/Prosthetic Devices or Brace: No Transfers Transfer Destination Chair Transfer Technique Stand Step Pivot Transfer Ability Level of Assist Maximum Assistance,1 Person Assistance,2 Person Assistance ,Use of Upper Extremities Comments Mobility Comments pt supine in bed and agreeable to do PT. Obtained PLOF and home setup. cnc service technician came to do ECHO. checked back on pt after ECHO. spouse in room. BP checked: 135/63 O2 sat: 90-91% with 5L /min O2. pt completedsupine to sit with HOB elevated min A. spouse assisted pt with putting shoes on. pt able to sit on EOB SBA. no c/o dizziness. pt needed assist with brief management. completed sit to stand from EOB min A to mod A and cues x 2 attempts to stand up. pt tends to have RLE in extension . pt was able to stay standing mod A for standing balanc using quad cane for support min to mod A while nurse assisted pt with brief management. pt sat back on EOB . c/o feeling tired but agreed to get up and transfer to the chair. mod A for sit to stand and step transfer to chair max A x 2 and max cues with uncontrolled sitting since pt just sat down midway during transfer. pt stated that he feels weak. pt refused ambulation. positioned pt on the chair. set up for lunch. call light within reach. left pt with nurse in room. PT-Balance Assessment Sitting Balance and Reactions Static Sitting Balance Ability Good Dynamic Sitting Balance Ability Fair Standing Balance and Reactions Static Standing Balance Ability Poor Dynamic Standing Balance Ability Poor Device Used quad cane M5 PT-IP Objective Assessments Start: 06/05/24 13:36 Freq: NEEDED Status: Active Protocol: Document 06/05/24 11:05 AB (Rec: 06/05/24 14:03 AB [id number]) Orientation Orientation/Cognition Level of Alertness Alert Orientation Name,Place,Situation Language Function Ability Hard of Hearing Safety Awareness Decreased Safety Awareness Memory Description No Deficits Noted Strength Lower Extremity Strength Assessment Right Impaired Hip 2-/5 Knee 2-/5 Ankle 0/5 Muscle Tone Muscle Tone WNL No Muscle Tone Location Right Lower Extremity Type of Tone Hypotonicity M6 PT-IP Treatment Start: 06/05/24 13:36 Freq: NEEDED Status: Active Protocol: Document 06/05/24 11:05 AB (Rec: 06/05/24 14:03 AB [id number]) Physical Therapy Treatment Education Education Provided Safety M7 PT-IP Assessment and Plan Start: 06/05/24 13:36 Freq: NEEDED Status: Active Protocol: Document 06/05/24 11:05 AB (Rec: 06/05/24 14:03 AB [id number]) PT Summary Assessment and Plan Potential Rehabilitation Potential Fair Status of Condition at Evaluation Evolving Summary Impairments Pain,ROM,Strength,Balance, Coordination,Sensation,Tone, Cognition,Bed Mobility, Transfers,Gait,Activity Tolerance Assessment Summary pt is a 63 y/o M who is admitted for GI bleed and found to have a R abdominal mass. pt was scheduled to have surgery 06/03/24 but was cancelled due to pt developing respiratory failure and encephalopathy. pt requiring max A x 2 for step transfer and unable to tolerate much activity. pt lives with spouse and spouse plans to assist pt at home. d/c plan depending on progress: SNF vs home with 03/01 and PT. will continue to assess. Goals Bed Mobility Goal Independent Transfer Goal Moderate Assistance,Cane Gait Goal Moderate Assistance,Cane Gait Distance 50 Days to Meet Goals 10 Frequency of Treatment Frequency Of Treatment Once a Day Treatment Plan Physical Therapy Treatment Plan Bed Mobility Training,Transfer Training,Gait Training, Therapeutic Exercise,Balance Retraining,Post Op Education, Discharge Planning,Hot or Cold Pack,Neuromuscular Re-ed, Coordination Retraining,Manual Therapy Precautions Brace R AFO Recommendations To Nursing Amount of Assist Needed Mechanical Lift Discharge Recommendations PT Discharge Recommendations Home vs SNF Transportation Needs at Discharge Wheelchair/Cabulance,Stretcher /Ambulance
[2024-06-05] MEDS: POTASSIUM CHLORIDE 20 MEQ TAB 40 MEQ PO (12:48)
[2024-06-05] MEDS: FERROUS SULFATE 325 MG TABLET PO (12:48)
[2024-06-05] MEDS: MAGNESIUM CHLORIDE 64 MG TABLET 128 MG PO (12:48)
--- NOTE | 2024-06-05 15:07 | RT ---
Addendum entered by Todd Alonzo 06/05/24 15:33: 1507 -pt performed test without any adverse effects. Original Note: Bedside spirometry (spirometry pre/post bronchodilator) performed. Dr. Pedroza notified with spirometry results at 1507. RN aware.
[2024-06-05] MEDS: FUROSEMIDE 80 MG in SODIUM CHLORIDE 0.9% 50 ML 116 MG IV (18:49)
[2024-06-06] VITALS (11 sets, daily range): BP systolic 120–144; BP diastolic 57–75; PULSE 82–105; RESP 16–32; TEMP 31–37.2; O2SAT 88–96
--- NOTE | 2024-06-06 03:48 | RT ---
patient on room air @ 1955 on 06/05/2024 w/ spo2 96%. Spo2 dropped below 88% @ 2350 and placed back on 3-4L via NC. Placed on Bipap @ 0050, continued prior settings & 45%Fio2
[2024-06-06 06:06] LABS: BUN Creatinine Ratio 11.6 (6-22); Blood Urea Nitrogen 23 mg/dL (9-20); Calcium 8.3 mg/dL (8.4-10.2); Carbon Dioxide 37 mmol/L (22-32); Chloride 95 mmol/L (98-107); Estimated Glomerular Filt Rate 37 mL/min (>60); Glucose 129 mg/dL (80-110); HEMOLYSIS < 15 (0-50); Magnesium 1.8 mg/dL (1.6-2.3); Potassium 3.7 mmol/L (3.4-5.1); Sodium 132 mmol/L (137-145)
[2024-06-06] MEDS: ALBUTEROL 2.5 MG/3 ML NEB (ADULT) INH ×2 (07:10→19:43)
[2024-06-06] MEDS: FUROSEMIDE 80 MG in SODIUM CHLORIDE 0.9% 50 ML 116 MG IV ×2 (08:18→20:33)
[2024-06-06] MEDS: METOPROLOL ER 50 MG TABLET 200 MG PO (08:19)
[2024-06-06] MEDS: PREGABALIN 75 MG CAPSULE PO ×2 (08:26→20:34)
[2024-06-06] MEDS: FERROUS SULFATE 325 MG TABLET PO (08:28)
[2024-06-06] MEDS: PANTOPRAZOLE 40 MG VIAL IV ×2 (08:28→20:34)
[2024-06-06] MEDS: SODIUM CHLORIDE 0.9% FLUSH 10 ML IV ×2 (08:28→20:35)
[2024-06-06] MEDS: TORSEMIDE 10 MG TABLET 60 MG PO (08:28)
--- NOTE | 2024-06-06 11:13 | PM.PN.1 ---
Subjective Subjective Date Patient Seen: 06/06/24 Time Patient Seen: 08:00 Interval history: Summary: 63-year-old male with polycystic kidney disease, CKD stage 4, history of hemorrhagic left CVA in 2012, status post evacuation with residual right-sided weakness, who was admitted with a lower GI bleed. He was found to have a 10 cm fungating mass in the right colon. He was scheduled to go to the operating room yesterday afternoon for resection, but it was canceled due to development of acute hypoxic respiratory failure and acute metabolic encephalopathy. 06/03: Patient was notably drowsy throughout the day yesterday. He required oxygen via facemask. An ABG was done in the afternoon and revealed a significant respiratory acidosis with a pH of 7.24, pCO2 of 80 5, bicarb of 36, O2 sat 94%. Was placed on BiPAP through the day and his mentation improved. He again wore BiPAP for most of the night. He takes home torsemide, and appears to become volume overloaded here. Chest x-ray suggests pulmonary edema. S: The patient reports persistent shortness of breath up to 7 L nasal cannula oxygen and oxygen saturation 90%. He has not had a significant diuresis overnight. Exam Vital Signs (past 8 hours): - 06/06/24 04:00 06/06/24 04:00 06/06/24 04:35 Temperature 98.1 F Pulse Rate 82 Respiratory Rate 22 Blood Pressure 120/57 L Pulse Oximetry 90 L Oxygen Delivery Method BiPAP Oxygen Flow Rate Fraction of Inspired Oxygen 45 45 06/06/24 07:11 06/06/24 08:00 06/06/24 08:00 Temperature 99 F Pulse Rate Respiratory Rate Blood Pressure 120/57 L Pulse Oximetry Oxygen Delivery Method Nasal Cannula Oxygen Flow Rate 7 Fraction of Inspired Oxygen 45 06/06/24 08:19 06/06/24 09:42 Temperature Pulse Rate 98 H 105 H Respiratory Rate Blood Pressure 133/60 144/67 H Pulse Oximetry Oxygen Delivery Method Oxygen Flow Rate Fraction of Inspired Oxygen Fraction of Inspired Oxygen 45 SaO2/FiO2 Ratio 261 Oxygen Delivery Method Nasal Cannula Oxygen Flow Rate 7 Narrative Exam Narrative: NAD, alert and oriented. Fluent speech. 5 L O2. Lungs with coarse rales lower 1/3 bilaterally Heart is regular, no murmur gallop or rub. Abdomen is soft, non distended. Extremities are with 2+ edema. Objective Imaging Echocardiogram 06/05/2024:: Radiologist's impression: The left ventricle is normal in size. There is moderate concentric left ventricular hypertrophy. There is a increased echo reflectance of LV myocardium. Differential diagnosis: Hypertensive heart disease versus infiltrative cardiomyopathy. The left ventricle is hyperdynamic. The ejection fraction is estimated to be 70-75%. The echo findings are consistent with trivial dynamic left ventricular intracavitary obstruction. The right ventricle is normal in size and function. There is mild aortic regurgitation. The IVC is of normal diameter and collapses greater than 50% with a sniff. This suggests a low right atrial pressure of 3 mm Hg. In short axis view behind posterior lateral wall of left ventricle, small loculated pericardial effusion without any echo evidence of tamponade. Liver cyst present. Chest xray 06/05/2024:: Radiologist's impression: INDICATIONS: Dyspnea TECHNIQUE: One view of the chest was acquired. COMPARISON: [facility], CR, XR CHEST 1V, 06/03/2024, 8:23. FINDINGS: Surgical changes and devices: None. Lungs and pleura: Low lung volumes without significant change. No developing consolidations. No pleural effusions or pneumothorax. Mediastinum: Stable cardiomegaly. Stable aortic contour. No significant central venous congestion. Bones and chest wall: No suspicious bony lesions. Overlying soft tissues appear unremarkable. IMPRESSION: Stable heart and lungs. Labs 06/05/24 09:38 06/06/24 04:30 Labs: Laboratory Results - last 24 hr 06/06/24 04:30 Sodium 132 L Potassium 3.7 Chloride 95 L Carbon Dioxide 37 H BUN 23 H Creatinine 1.99 H Estimated GFR 37 L BUN/Creatinine Ratio 11.6 Glucose 129 H Calcium 8.3 L Magnesium 1.8 [facility] Medical History Ascending colon malignant neoplasm Social History household members: significant other Smoking Status: Never smoker alcohol intake: current Assessment & Plan Assessment & Plan narrative: 1. Fungating right colon mass, active. Pathology non-diagnostic for malignancy, surgical resection planned when stable from respiratory standpoint. 2. Acute blood loss anemia, active. 3. Untreated obstructive sleep apnea, active. He will require BiPAP during sleep in order to promote pulmonary hygiene. 4. Acute hypoxic respiratory failure, active. Patient continues to require 6-7 L via facemask but does desaturate when he has apneic episodes. Etiology is likely a combination of sleep apnea, obesity hypoventilation syndrome, and atelectasis. At baseline, he does not require any oxygen. Will continue having him out of bed as much as possible. 5. CKD 4, stable. Secondary to polycystic kidney disease. Stable. 6. 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 Stable 7. Hypertension, stable. Receiving his usual home dose of metoprolol and torsemide. Amlodipine has been held. Blood pressures are normotensive. 8. LE edema Check US. PLAN: -Lasix 80 IV q12 -wean O2 as able. -US legs. -BiPAP as needed DAVID: 1-2 days. Code status Full I[facility] PROFEE Charge codes Subsequent inpatient/observation care: [id number]
--- NOTE | 2024-06-06 11:27 | DI.US.S_ITS ---
PROCEDURE: US PERIPH VENOUS LOW EXTREM BI INDICATIONS: swelling TECHNIQUE: Real-time imaging, as well as color and pulse Doppler interrogation, were performed of the deep veins of both legs from the inguinal ligament to the popliteal fossa, with documentation of the visualized calf veins. COMPARISON: None. FINDINGS: Right: The common femoral, femoral, popliteal, and the visualized calf veins are normally compressible, and free of intraluminal thrombus. Color and pulse Doppler demonstrate normal phasic intravascular flow. There is normal augmentation response to distal compression maneuver. Left: The common femoral, femoral, popliteal, and the visualized calf veins are normally compressible, and free of intraluminal thrombus. Color and pulse Doppler demonstrate normal phasic intravascular flow. There is normal augmentation response to distal compression maneuver. This study is limited by body habitus. IMPRESSION: No findings of deep venous thrombosis in either lower extremity. Dictated by: Keith Blanco M.D. on 06/06/2024 at 15:37 Approved by: Keith Blanco M.D. on 06/06/2024 at 15:37
--- NOTE | 2024-06-06 11:39 | PM.PN.1 ---
Subjective Subjective Date Patient Seen: 06/06/24 Time Patient Seen: 11:39 Interval history: Patient is eating well. Having formed, non-bloody bowel movements. Still with breathing difficulties. I had him work with the incentive spirometer, and he is unable to ladle puller 500 mL for no more than 1 second. Making urine. Exam Vital Signs (past 8 hours): - 06/06/24 04:00 06/06/24 04:00 06/06/24 04:35 Temperature 98.1 F Pulse Rate 82 Respiratory Rate 22 Blood Pressure 120/57 L Pulse Oximetry 90 L Oxygen Delivery Method BiPAP Oxygen Flow Rate Fraction of Inspired Oxygen 45 45 06/06/24 07:11 06/06/24 08:00 06/06/24 08:00 Temperature 99 F Pulse Rate Respiratory Rate Blood Pressure 120/57 L Pulse Oximetry Oxygen Delivery Method Nasal Cannula Oxygen Flow Rate 7 Fraction of Inspired Oxygen 45 06/06/24 08:19 06/06/24 09:42 Temperature Pulse Rate 98 H 105 H Respiratory Rate Blood Pressure 133/60 144/67 H Pulse Oximetry Oxygen Delivery Method Oxygen Flow Rate Fraction of Inspired Oxygen Fraction of Inspired Oxygen 45 SaO2/FiO2 Ratio 261 Oxygen Delivery Method Nasal Cannula Oxygen Flow Rate 7 Const General: cooperative Nutritional Appearance: obese Orientation: alert, awake and oriented x3 HENMT Head: normocephalic and atraumatic Eyes General: appearance normal, both eyes and all related structures Conjunctivae: conjunctivae normal Sclera: sclerae normal Neck Neck: full ROM and trachea midline Chest Chest: normal inspection of the chest Resp Effort & Inspection: able to speak in complete sentences and labored Cardio Rate: tachycardic Rhythm: regular rhythm GI Inspection: obesity Palpation: soft and No tender Objective Labs 06/05/24 09:38 06/06/24 04:30 Labs: Laboratory Results - last 24 hr 06/06/24 04:30 Sodium 132 L Potassium 3.7 Chloride 95 L Carbon Dioxide 37 H BUN 23 H Creatinine 1.99 H Estimated GFR 37 L BUN/Creatinine Ratio 11.6 Glucose 129 H Calcium 8.3 L Magnesium 1.8 PFSH Medical History Ascending colon malignant neoplasm Social History household members: significant other Smoking Status: Never smoker alcohol intake: current Assessment & Plan Assessment and plan (1) Ascending colon malignant neoplasm: Status: Acute (2) Hypoxia: Status: Acute (3) Renal insufficiency: Status: Acute Plan No urgent need for surgery prior to cardiopulmonary and nephrology evaluation. Recommend establishing care at [facility] or [facility] in preparation for colon cancer surgery. Time-Based Coding :: [TOTAL MINUTES] spent with patient and on the chart (including review of chart, obtaining history, exam, reviewing outside data, placing orders, documenting exam and treatment plan, and counseling patient) on [DATE].
--- NOTE | 2024-06-06 14:30 | PT.IPTN ---
Current Diagnoses Malignant neoplasm of ascending colon (05/29/24) Acute posthemorrhagic anemia (05/29/24) Disorder of kidney and ureter, unspecified (05/29/24) Hypoxemia (05/29/24) Surgery Performed Operation Date: 05/31/24 16:00 Actual Procedures p Esophagogastroduodenoscopy WITH BIOPSY - Evans Winters MD s Colonoscopy with Biopsy - Evans Winters MD Operation Date: 06/02/24 13:00 <No data on this case meets the specified criteria> Physical Therapy Treatment Note M2 PT-IP Current Condition Start: 06/05/24 13:36 Freq: NEEDED Status: Active Protocol: Document 06/05/24 11:05 AB (Rec: 06/05/24 14:03 AB [id number]) Physical Therapy Current Condition Current Condition Evaluation Date 06/05/24 Treatment Diagnosis GI bleed; R colon mass; difficulty in walking Onset Date 05/29/24 M3 PT-IP Subjective Start: 06/05/24 13:36 Freq: NEEDED Status: Active Protocol: Document 06/06/24 14:30 NBM (Rec: 06/06/24 16:16 NBM [id number]) Subjective Physical Therapy Visit Type Type Treatment Note Visit Start Time 14:15 Visit Stop Time 14:30 Number of ASSISTANT [employer] PUBLIC DEFENDER Visits 1 Physical Therapy Visit Comments Patient Comments agreeable to do PT. M4 PT-IP Mobility and Gait Start: 06/05/24 13:36 Freq: NEEDED Status: Active Protocol: Document 06/06/24 14:30 NBM (Rec: 06/06/24 16:16 NBM [id number]) PT-Transfer Assessment Sit to and From Stand Sit to and from Stand Maximum Assistance,2 Person Assistance,Use of Upper Extremities Equipment Transfer Assistive Device Gait Belt,Large Based Quad Cane Orthotic/Prosthetic Devices or Brace: No Transfer Ability Level of Assist Maximum Assistance,1 Person Assistance,2 Person Assistance ,Use of Upper Extremities Comments Mobility Comments Pt sitting up in chair and agreeable to do PT. spouse in room. BP checked: 145/65 O2 sat: 97% with 5L/ min O2. dons R AFO and shoes. L ankle pumps, LAQs, seated august ea. Pt cued to scoot to EOC SBA and assist needed for R foot placement. no c/o dizziness. Sit to stand from EOC max A x2PA w/ block R foot x5 attempts to stand up fully; pt demos improved upright posture and tolerance until fatigued w/ 5th attempt. Pt was unable to achieve standing long enough to move LUE from chair to LBQC positioned for pt. Max A x2PA for controlling descent, and [place] x2PA for scooting pt back in chair using drawsheet. Gluteal sets 10x 2 breathcycles (~5 sec). call light within reach. left pt with nurse in room. [ End ] PT-Balance Assessment Sitting Balance and Reactions Static Sitting Balance Ability Good Dynamic Sitting Balance Ability Fair Standing Balance and Reactions Static Standing Balance Ability Poor Dynamic Standing Balance Ability Poor Device Used unable to transfer LUE from chair to quad cane Comments Other Balance Tests/Deviations/Treatment I/s pt in breathwork to avoid : breathholding. Edu to pt to perform ankle pumps and gluteal sets throughout the day as tolerated. M5 PT-IP Objective Assessments Start: 06/05/24 13:36 Freq: NEEDED Status: Active Protocol: Document 06/05/24 11:05 AB (Rec: 06/05/24 14:03 AB [id number]) Orientation Orientation/Cognition Level of Alertness Alert Orientation Name,Place,Situation Language Function Ability Hard of Hearing Safety Awareness Decreased Safety Awareness Memory Description No Deficits Noted Strength Lower Extremity Strength Assessment Right Impaired Hip 2-/5 Knee 2-/5 Ankle 0/5 Muscle Tone Muscle Tone WNL No Muscle Tone Location Right Lower Extremity Type of Tone Hypotonicity M6 PT-IP Treatment Start: 06/05/24 13:36 Freq: NEEDED Status: Active Protocol: Document 06/06/24 14:30 NBM (Rec: 06/06/24 16:16 [facility] [id number]) Physical Therapy Treatment Exercises Exercises Ankle Pumps,Gluteal Sets, Seated Knee Flexion/Extension Education Education Provided Safety Other Treatments Other Treatment Performed seated marching (L>R) M7 PT-IP Assessment and Plan Start: 06/05/24 13:36 Freq: NEEDED Status: Active Protocol: Document 06/06/24 14:30 NBM (Rec: 06/06/24 16:16 [facility] [id number]) PT Summary Assessment and Plan Potential Rehabilitation Potential Fair Status of Condition at Evaluation Evolving Summary Impairments Pain,ROM,Strength,Balance, Coordination,Sensation,Tone, Cognition,Bed Mobility, Transfers,Gait,Activity Tolerance Assessment Summary Pt requiring max A x2PA for sit to stand x5 with heavy UE use and discontinues due to fatigue. He is unable to demo step transfer today or transfer LUE from chair to LBQC and requires cues for gluteal activation and upright posture. D/c plan depending on progress: SNF vs home with 24/7 and HHPT. will continue to assess. Goals Bed Mobility Goal Independent Transfer Goal Moderate Assistance,Cane Gait Goal Moderate Assistance,Cane Gait Distance 50 Days to Meet Goals 10 Frequency of Treatment Frequency Of Treatment Once a Day Treatment Plan Physical Therapy Treatment Plan Bed Mobility Training,Transfer Training,Gait Training, Therapeutic Exercise,Balance Retraining,Post Op Education, Discharge Planning,Hot or Cold Pack,Neuromuscular Re-ed, Coordination Retraining,Manual Therapy Precautions Brace R AFO Recommendations To Nursing Amount of Assist Needed Mechanical Lift Discharge Recommendations PT Discharge Recommendations Home vs SNF Transportation Needs at Discharge Wheelchair/Cabulance,Stretcher /Ambulance
--- NOTE | 2024-06-06 18:48 | PC.NURSE ---
Pt tolerated sitting in chair and NC O2 weaned throughout shift. Pt SO at bedside, updated throughout shift.
[2024-06-07] VITALS (30 sets, daily range): BP systolic 118–141; BP diastolic 56–65; PULSE 74–97; RESP 17–43; TEMP 35.9–36.7; O2SAT 86–96
[2024-06-07 05:00] LABS: HEMOLYSIS < 15 (0-50); Potassium 3.8 mmol/L (3.4-5.1)
[2024-06-07 05:01] LABS: BUN Creatinine Ratio 15.1 (6-22); Blood Urea Nitrogen 31 mg/dL (9-20); Calcium 8.4 mg/dL (8.4-10.2); Carbon Dioxide 37 mmol/L (22-32); Chloride 94 mmol/L (98-107); Estimated Glomerular Filt Rate 36 mL/min (>60); Glucose 139 mg/dL (80-110); Sodium 132 mmol/L (137-145)
[2024-06-07 05:10] LABS: Add Manual Diff / Slide Review NO; Basophils Absolute Auto 100 /uL (0-100); Eosinophils Absolute Auto 300 /uL (0-450); Eosinophils Percent Auto 3.4 % (2-4); Hematocrit 33.7 % (41-53); Hemoglobin 10.5 g/dL (13.5-17.5); Lymphocytes Absolute Auto 900 /uL (1100-4500); Lymphocytes Percent Auto 12.5 % (25-40); Mean Corpuscular HGB Conc 31.2 % (30-36); Mean Corpuscular Hemoglobin 24.6 PG (26-34); Mean Corpuscular Volume 78.9 fL (80-100); Monocytes Absolute Auto 600 /uL (0-900); Monocytes Percent Auto 7.6 % (3-14); Neutrophils Absolute Auto 5600 /uL (1500-7000); Neutrophils Percent Auto 75.5 % (50-75); Platelet Count 397 X10^3/uL (150-400); Red Blood Cell Count 4.28 X10^6/uL (4.5-5.9); Red Cell Distribution Width 22.2 % (11.6-14.8); White Blood Cell Count 7.4 X10^3/uL (4.5-11.0)
[2024-06-07 06:00] LABS: Anisocytosis 2+; Hypochromasia 1+; Microcytosis 1+; Poikilocytosis 1+; Stomatocytes 2+
[2024-06-07] MEDS: ALBUTEROL 2.5 MG/3 ML NEB (ADULT) INH ×2 (08:48→20:35)
[2024-06-07] MEDS: FUROSEMIDE 80 MG in SODIUM CHLORIDE 0.9% 50 ML 116 MG IV ×2 (08:50→19:45)
[2024-06-07] MEDS: PANTOPRAZOLE 40 MG VIAL IV ×2 (08:51→21:10)
[2024-06-07] MEDS: SODIUM CHLORIDE 0.9% FLUSH 10 ML IV ×2 (08:51→21:13)
[2024-06-07] MEDS: PREGABALIN 75 MG CAPSULE PO ×2 (08:51→21:12)
[2024-06-07] MEDS: FERROUS SULFATE 325 MG TABLET PO (08:51)
[2024-06-07] MEDS: TORSEMIDE 10 MG TABLET 60 MG PO (08:51)
[2024-06-07] MEDS: METOPROLOL ER 50 MG TABLET 200 MG PO (09:03)
--- NOTE | 2024-06-07 09:12 | PM.PN.1 ---
Subjective Subjective Interval history: He remains on about 5 L of oxygen but was on room air throughout the day yesterday. He was needing nasal cannula at night and not clearly needing BiPAP as much. He was a good diuresis. He was currently on Lasix drip. Subjective: Breathing does feel better, no chest pain. No abdominal pain or rectal bleeding. Exam Vital Signs (past 8 hours): - 06/07/24 02:00 06/07/24 06:00 06/07/24 08:48 Temperature 97.8 F 98.1 F 96.8 F L Pulse Rate 91 H 76 74 Respiratory Rate 29 H 20 17 Blood Pressure 118/61 121/58 L 124/59 L Pulse Oximetry 89 L 91 96 Oxygen Delivery Method Oxygen Flow Rate 5 0 5 06/07/24 08:49 06/07/24 09:03 Temperature Pulse Rate 84 82 Respiratory Rate 24 Blood Pressure 124/62 Pulse Oximetry 94 Oxygen Delivery Method High Flow Nasal Cannula Oxygen Flow Rate 5 Fraction of Inspired Oxygen 45 SaO2/FiO2 Ratio 261 Oxygen Delivery Method High Flow Nasal Cannula Oxygen Flow Rate 5 Narrative Exam Narrative: NAD, alert and oriented. Fluent speech. Lungs are notable for some rales in the bases, normal rate and effort. He was on 5 L of O2 N/C. Heart is regular, no murmur gallop or rub. Abdomen is soft, non distended. Extremities are free of edema. Objective Labs 06/07/24 04:30 06/07/24 04:30 Labs: Laboratory Results - last 24 hr 06/07/24 04:30 WBC 7.4 RBC 4.28 L Hgb 10.5 L Hct 33.7 L MCV 78.9 L MCH 24.6 L MCHC 31.2 RDW 22.2 H Plt Count 397 Neut % (Auto) 75.5 H Lymph % (Auto) 12.5 L Atkinson % (Auto) 7.6 Eos % (Auto) 3.4 Baso % (Auto) 1.0 Neut # (Auto) 5600 Lymph # (Auto) 900 L Atkinson # (Auto) 600 Eos # (Auto) 300 Baso # (Auto) 100 RBC Morphology See below Hypochromasia 1+ H Poikilocytosis 1+ H Anisocytosis 2+ H Microcytosis 1+ H Stomatocytes 2+ H Sodium 132 L Potassium 3.8 Chloride 94 L Carbon Dioxide 37 H BUN 31 H Creatinine 2.05 H Estimated GFR 36 L BUN/Creatinine Ratio 15.1 Glucose 139 H Calcium 8.4 PFSH Medical History Ascending colon malignant neoplasm Social History household members: significant other Smoking Status: Never smoker alcohol intake: current Assessment & Plan Assessment & Plan narrative: 1. Fungating right colon mass, active. Pathology non-diagnostic for malignancy, surgical resection planned when stable from respiratory standpoint. 2. Acute blood loss anemia, stable. 3. Untreated obstructive sleep apnea, active. He was improving to some degree with diuresis. 4. Acute hypoxic respiratory failure, improving. Patient continues to require 6-7 L via facemask but does desaturate when he has apneic episodes. Etiology is likely a combination of sleep apnea, obesity hypoventilation syndrome, and atelectasis. At baseline, he does not require any oxygen. Will continue having him out of bed as much as possible. 5. CKD 4, stable. Secondary to polycystic kidney disease. Stable. 6. 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 Stable 7. Hypertension, stable. Receiving his usual home dose of metoprolol and torsemide. Amlodipine has been held. Blood pressures are normotensive. 8. LE edema Check US. 9. Obesity class 2 with BMI of 38.4. PLAN: -we will continue Lasix drip and monitor I's and O's. -wean O2 as able. -US legs was negative for DVT. -BiPAP as needed, we will see if we can get through tonight without and repeat a blood gas without BiPAP. I will send a message to Dr. Canales, new colorectal surgeon at [facility]. We will ask if he would be willing to review images and see if he thinks that there is a possibility of hospital hospital transfer. DAVID: 2 days. Code status Type Casting Machine Operator-Based Coding :: [TOTAL MINUTES] spent with patient and on the chart (including review of chart, obtaining history, exam, reviewing outside data, placing orders, documenting exam and treatment plan, and counseling patient) on [DATE].
--- NOTE | 2024-06-07 09:22 | PC.NURSE ---
Addendum entered by Brittni Leong R.N. 06/07/24 19:26: 1926 Report given to sandra RN. Plan of care discussed. Patient with no complaints at this time. 1700 MD Pedroza at the bedside, updating patient on plan of care. Patient to have ABG drawn at 0400. Plan for possible d/c in AM. Addendum entered by Brittni Leong R.N. 06/07/24 10:44: 1040 Patient assisted to chair. at the bedside. Patient with unsteady gait and stance. suggesting to transfer patient to chair using techniques at home. wanting reclining chair positioned on right side of patient. Patient with right sided deficit and very unsteady. Attempted to get patient to chair on ride side, patient had extreme difficulty getting in chair and a staggering stance. Patient requiring RN and BI SPECIALIST judgment on transferring safely. Patient transferred to chair with chair positioned to left side of patient. Patient transferred to chair with more ease. Pillows provided for comfort. Call light within reach. Original Note: 20 Report received from sandra RN. Patient AAO x's 3. Decreased sensation on right side noted d/t history of stroke. RUE flaccid, RLE, weak. LUE strong, LLE strong. Patient on 4 L NC, sating 86% Oxygen increased to 5L patient now sating 93% 0900 MD Pedroza at the bedside, updating patient on plan of care. MD aware of urine output. Patient and verbalized understanding of plan of care. AM medications administered. Patient weened to RA. RT at the bedside administering treatment. 0915 Patient sating 80% Patient oxygen reapplied to 5L NC, patient now sating 90%
--- NOTE | 2024-06-07 11:50 | PT.IPTN ---
Current Diagnoses Malignant neoplasm of ascending colon (05/29/24) Acute posthemorrhagic anemia (05/29/24) Disorder of kidney and ureter, unspecified (05/29/24) Hypoxemia (05/29/24) Surgery Performed Operation Date: 05/31/24 16:00 Actual Procedures p Esophagogastroduodenoscopy WITH BIOPSY - Evans Winters MD s Colonoscopy with Biopsy - Evans Winters MD Operation Date: 06/02/24 13:00 <No data on this case meets the specified criteria> Physical Therapy Treatment Note M2 PT-IP Current Condition Start: 06/05/24 13:36 Freq: NEEDED Status: Active Protocol: Document 06/05/24 11:05 AB (Rec: 06/05/24 14:03 AB [id number]) Physical Therapy Current Condition Current Condition Evaluation Date 06/05/24 Treatment Diagnosis GI bleed; R colon mass; difficulty in walking Onset Date 05/29/24 M3 PT-IP Subjective Start: 06/05/24 13:36 Freq: NEEDED Status: Active Protocol: Document 06/07/24 17:01 TS (Rec: 06/07/24 17:11 TS [id number]) Subjective Physical Therapy Visit Type Type Treatment Note Visit Start Time 11:50 Visit Stop Time 12:15 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 M4 PT-IP Mobility and Gait Start: 06/05/24 13:36 Freq: NEEDED Status: Active Protocol: Document 06/07/24 17:01 TS (Rec: 06/07/24 17:11 TS [id number]) PT-Transfer Assessment Sit to and From Stand Sit to and from Stand Maximum Assistance,2 Person Assistance,Use of Upper Extremities Equipment Transfer Assistive Device Gait Belt,Andrew Walker Orthotic/Prosthetic Devices or Brace: No Transfers Transfer Destination Bed,Chair Transfer Technique Stand Step Pivot Transfer Ability Level of Assist Maximum Assistance,1 Person Assistance,2 Person Assistance ,Use of Upper Extremities Comments Mobility Comments STS with FWW MaxA x2 with use of andrew-walker and cues for pushing from arms of chair. Pt performs transfer to bed MaxA x2 with hemiwalker, pt's R ankle tends to supinate. Pt performs squat pivot back to chair with spouse MaxA. Pt was left in the chair, all needs met. PT-Balance Assessment Sitting Balance and Reactions Static Sitting Balance Ability Good Dynamic Sitting Balance Ability Fair Standing Balance and Reactions Static Standing Balance Ability Poor Dynamic Standing Balance Ability Poor Device Used unable to transfer LUE from chair to quad cane M5 PT-IP Objective Assessments Start: 06/05/24 13:36 Freq: NEEDED Status: Active Protocol: Document 06/05/24 11:05 AB (Rec: 06/05/24 14:03 AB [id number]) Orientation Orientation/Cognition Level of Alertness Alert Orientation Name,Place,Situation Language Function Ability Hard of Hearing Safety Awareness Decreased Safety Awareness Memory Description No Deficits Noted Strength Lower Extremity Strength Assessment Right Impaired Hip 2-/5 Knee 2-/5 Ankle 0/5 Muscle Tone Muscle Tone WNL No Muscle Tone Location Right Lower Extremity Type of Tone Hypotonicity M6 PT-IP Treatment Start: 06/05/24 13:36 Freq: NEEDED Status: Active Protocol: Document 06/07/24 17:01 TS (Rec: 06/07/24 17:11 TS [id number]) Physical Therapy Treatment Education Education Provided Safety M7 PT-IP Assessment and Plan Start: 06/05/24 13:36 Freq: NEEDED Status: Active Protocol: Document 06/07/24 17:01 TS (Rec: 06/07/24 17:11 TS [id number]) PT Summary Assessment and Plan Potential Rehabilitation Potential Fair Summary Impairments Pain,ROM,Strength,Balance, Coordination,Sensation,Tone, Cognition,Bed Mobility, Transfers,Gait,Activity Tolerance Progress Towards Goals Slow Progress due to Activity Tolerance Assessment Summary Pt continues to require MaxA x1-2 for transfers with squat pivot or andrew-walker. Spouse assisted pt qisoniya quat pivot to the chair. He would like to return home with spouse's assistance. PT will continue to recommend SNF vs Home. Goals Bed Mobility Goal Independent Transfer Goal Moderate Assistance,Cane Gait Goal Moderate Assistance,Cane Gait Distance 50 Days to Meet Goals 10 Frequency of Treatment Frequency Of Treatment Once a Day Treatment Plan Physical Therapy Treatment Plan Bed Mobility Training,Transfer Training,Gait Training, Therapeutic Exercise,Balance Retraining,Post Op Education, Discharge Planning,Hot or Cold Pack,Neuromuscular Re-ed, Coordination Retraining,Manual Therapy Precautions Brace R AFO Recommendations To Nursing Amount of Assist Needed 2 Person Assist,3 or More Person Assist Discharge Recommendations PT Discharge Recommendations Home vs SNF Transportation Needs at Discharge Wheelchair/Cabulance,Stretcher /Ambulance
--- NOTE | 2024-06-07 15:53 | CM.DPNOTE ---
DCP Cont Reviewed chart. Patient discussed in multidisciplinary rounds. Dr Pedroza discussed transfer with Dr Canales, colorectal surgeon at [facility]; patient was not accepted; no acute need for hospital to hospital transfer. Patient has been scheduled for outpatient follow up with Dr Canales for Jun 11 at 1pm. PT saw patient 06/06, rec= home w/ 03/01 assist vs SNF. Patient would like to return home although was a mechanical lift as of 06/06. Plan: Discharge home w/ family, 03/01 assist, HH and close outpatient follow up vs SNF, insurance- [facility]- may be a barrier to SNF placement. CM team following clinical course closely. RAVINDER
[2024-06-08] VITALS (26 sets, daily range): BP systolic 120–138; BP diastolic 60–65; PULSE 70–96; RESP 12–36; TEMP 36.1–37.1; O2SAT 77–99
[2024-06-08 04:15] LABS: Allen Test for ABG Passed? Positive; Base Excess ABG 10.3 mmol/L (-2-3); Blood Gas Collection Site Right Radial; HCO3 ABG 38 mmol/L (23-27); Oxygen Saturation ABG 92 % (95-100); PCO2 ABG 63.2 mmHg (35-45); PO2 ABG 66 mmHg (80-100); TCO2 ABG 37 mmol/L (23-27); pH ABG 7.38 (7.35-7.45)
[2024-06-08] MEDS: ALBUTEROL 2.5 MG/3 ML NEB (ADULT) INH (07:32)
[2024-06-08] MEDS: FUROSEMIDE 80 MG in SODIUM CHLORIDE 0.9% 50 ML 116 MG IV (07:51)
[2024-06-08] MEDS: TORSEMIDE 10 MG TABLET 60 MG PO (08:51)
[2024-06-08] MEDS: FERROUS SULFATE 325 MG TABLET PO (08:51)
[2024-06-08] MEDS: PREGABALIN 75 MG CAPSULE PO (08:51)
[2024-06-08] MEDS: METOPROLOL ER 50 MG TABLET 200 MG PO (08:52)
[2024-06-08] MEDS: PANTOPRAZOLE 40 MG VIAL IV (08:52)
[2024-06-08] MEDS: SODIUM CHLORIDE 0.9% FLUSH 10 ML IV (08:53)
--- NOTE | 2024-06-08 09:39 | CM.DPC ---
DCP Continued: Reviewed EMR and team rounds for pt?s medical status. Discharge order for home placed on 06/08 and pt caregiver/Partner to transport home to Tuesday. Per RN, pt requesting priority boarding pass for ferry ride to [place] due to pt not able to be sitting upright for long waiting period. DCP entered room, introduced self and role. Per caregiver/partnerRocío, they attempted to get a reservation but would still appreciate a priority loading pass. DCP acquired email address: [email or web address]. [place] [facility] form completed and printed, given to pt caregiver. DCP discussed home health with pt caregiver, home health declined due to partner being FRANCIS paid caregiver. DCP reviewed discharge plans for outpatient follow up at [facility] and surgery scheduled, pt and caregiver verbalized understanding. Plan: Discharge home with caregiver to transport, close follow up with [facility] Colorectal Surgery on 06/11 at 1:00pm. CM Team will continue to follow for coordination of discharge plans. JUSTO Elizabeth
--- NOTE | 2024-06-08 12:41 | PM.DS.1 ---
History of Present Illness History of Present Illness Date Patient Seen: 06/08/24 Time Patient Seen: 08:05 Date of Onset of Symptoms: 05/29/24 Chief complaint: hemogloubin low Narrative: This is a 63 year old male with PMH of ADPKD with stage IV CKD per nephrology documentation, left hemorrhagic stroke in 2012 with evacuation and residual R weakness who was referred to the ER today for a low Hg at an outpatient draw. He had an admission to [facility] in November 2023 (discharged 11/22) where he was initially admitted with hyperkalemia, but ultimately found to have probable GI Bleed. EGD showed gastritis and h/h stabilized per discharge summary. He was to follow up outpatient with GI for repeat EGD and colonoscopy but I cannot find a record of this and patient, though possibly confused, also states he never had a procedure outside of the hospital. Discharge Providers Provider Date of admission: 05/29/24 02:56 Discharge Date: 06/08/24 Consults: 05/29/24 02:55 Consult to General Surgery Stat Comment: Consulting Provider: Evans Winters Reason for consultation: Anemia Has provider been notified: Yes 06/04/24 16:56 Consult to Physical Therapy Evaluate & Treat Comment: Physician Instructions: Evaluate and Treat Discharge provider: Chito Swenson MD Summary Hospital Course Discharge Diagnosis: 1. Fungating right colon mass, active. Pathology non-diagnostic for malignancy, surgical resection planned when stable from respiratory standpoint. 2. Acute blood loss anemia, stable. 3. Untreated obstructive sleep apnea, active. 4. Acute hypoxic respiratory failure, improving. 5. CKD 4, stable due to polycystic kidney disease. 6. 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 7. Hypertension, stable. 8. LE edema due to venous insufficiency 9. Obesity Hospital Course: The patient was admitted and transfused 3 units packed red blood cells, with imaging finding a fungating right colon mass. Endoscopy was performed and obtain biopsies which proved nondiagnostic. Patient had a recent evaluation at [facility] with EGD with gastritis, however no follow-up was pursued. Resection of the mass was planned however the patient was tenuous from a respiratory perspective, frequently desaturating to the 80s % range on room air when supine, requiring supplemental oxygen. There was no evidence of pneumonia, congestive heart failure pulmonary embolism, and clinically he appeared to have significant sleep apnea and hypoxemia when in the supine position due to respiratory obstruction. Outpatient evaluation with sleep Medicine was advised. Was provided supplemental oxygen during the hospitalization to continue at home. Outpatient surgical consultation has been arranged with Dr. Canales, a colorectal surgeon at [facility] in clinic on June 15 at 3:00 p.m. and will likely have a repeat colonoscopy on June 19 with the same doctor. It was our goal to discharge the patient prior to this appointment so that he can be seen outpatient. There was not felt to be reason for a inpatient hospital hospital transfer. No other issues arose and the patient will return home with his with outpatient home oxygen, medical follow-up through his primary care provider to facilitate sleep medicine consultation, and surgical consultation. His usual amlodipine was held during hospitalization. This will need to be reassessed and outpatient follow-up. The patient and his acknowledged understanding, agreement and appreciation of this plan of care. Status at Discharge Cognitive/behavioral status at discharge: oriented Functional status at discharge: uses cane/walker Overall status at discharge: patient is progressing back to baseline Time Spent with Patient Time spent: Greater than 30 minutes Exam Vital Signs (past 8 hours): - 06/08/24 05:00 06/08/24 05:30 06/08/24 06:00 Temperature 98.7 F Pulse Rate 82 70 76 Respiratory Rate 19 12 15 Blood Pressure 125/60 Pulse Oximetry 92 95 93 Oxygen Delivery Method Oxygen Flow Rate 5 06/08/24 06:00 06/08/24 06:30 06/08/24 06:31 Temperature Pulse Rate 75 75 Respiratory Rate 14 16 Blood Pressure 125/60 Pulse Oximetry 94 92 Oxygen Delivery Method Oxygen Flow Rate 06/08/24 06:31 06/08/24 07:00 06/08/24 07:30 Temperature Pulse Rate 80 75 83 Respiratory Rate 18 15 21 Blood Pressure Pulse Oximetry 94 94 93 Oxygen Delivery Method Oxygen Flow Rate 06/08/24 07:32 06/08/24 07:45 06/08/24 07:45 Temperature Pulse Rate 89 84 Respiratory Rate 22 23 Blood Pressure 128/60 Pulse Oximetry 94 92 Oxygen Delivery Method High Flow Nasal Cannula Oxygen Flow Rate 5 06/08/24 08:00 06/08/24 08:30 06/08/24 08:52 Temperature Pulse Rate 88 92 H 90 Respiratory Rate 18 24 Blood Pressure 128/60 Pulse Oximetry 88 L 90 L Oxygen Delivery Method Oxygen Flow Rate 06/08/24 09:00 06/08/24 09:30 06/08/24 09:34 Temperature Pulse Rate 95 H 80 Respiratory Rate 31 H Blood Pressure 120/60 Pulse Oximetry 84 L 93 Oxygen Delivery Method Oxygen Flow Rate 06/08/24 10:00 Temperature Pulse Rate Respiratory Rate Blood Pressure Pulse Oximetry Oxygen Delivery Method Nasal Cannula Oxygen Flow Rate Fraction of Inspired Oxygen 90 SaO2/FiO2 Ratio 261 Oxygen Delivery Method Nasal Cannula Oxygen Flow Rate 5 Objective Imaging *: Radiologist's impression: 1. Chest x-ray 05/29/2024: Patchy bilateral atelectasis. 2. Chest/abdomen/pelvis CT 06/01/2024: Circumferential bladder wall thickening involving the hepatic flexure consistent with colon cancer. No suspicious lymphadenopathy. Innumerable bilateral renal and hepatic cysts likely reflect polycystic kidney disease. Trace right greater than left pleural effusions with subjacent atelectasis. 3. EGD and colonoscopy 05/31/2024: Patient was brought into the endo suite. General anesthesia was performed due to the patient's stroke and overall debilitated status with endotracheal intubation. Bite block was inserted. Time-out was performed. Lubricated endoscope was placed down the esophagus through the stomach and the 2nd portion of the duodenal. There was no evidence of blood in the duodenal stomach. There was mild gastritis in the antrum biopsies were performed. Retroflexed view did not show a significant hiatal hernia. Z-line was regular at 40 cm. Scope was withdrawn. Attention was then turned to the colonoscopy. Patient was placed in left lateral decubitus position. The perineum was inspected without any gross abnormality, aside from large hemorrhoids. Lubricated pediatric colonoscope was inserted and advanced to the cecum. The entire right colon was comprised of large greater than 10 cm mass obstructing the appendiceal orifice and terminal ileum. Multiple random biopsies were taken of the mass, however given the size of the mass sampling error may have occurred.. The colonoscope was withdrawn slowly inspecting the circumference of the colon. Patient had pancolonic diverticulosis without evidence of active bleeding. Very small polyps may have been missed, prep quality was adequate. Retroflexed view of the rectum showed large, prolapsed nonbleeding internal hemorrhoids. The scope was withdrawn the patient was taken to PACU in good condition. Pathology: Diagnosis: A. Stomach, antrum, biopsy: - Antral gastric mucosa with no histologic abnormalities. - No H. Pylori like organisms identified (on the H/E- stained sections). - Negative for gastritis, intestinal metaplasia, dysplasia, or malignancy. B. Colon mass, right, biopsy: - Ulcerated dysplastic mucosa with marked inflammation, see comment. Comment for part B: Histologic examination of right colon mass shows small superficial ulcerated colonic mucosa with adenomatous dysplastic features and marked inflammation, there is occasional dysplastic glands within the lamina propria with marked inflammation and fibroblastic reaction concerning but not diagnostic for invasive adenocarcinoma, no high-grade dysplastic features seen, therefore additional biopsy from viable areas of the colonic mass is recommended for definitive diagnosis. Correlation with colonoscopy imaging is required. 4. Chest x-ray 06/03/2024: Low lung volumes. Left base hazy opacity may represent atelectasis and/or small pleural effusion. 5. Chest x-ray 06/01/2024: Stable heart and lungs. 6. Echocardiogram 06/05/2024: The left ventricle is normal in size. There is moderate concentric left ventricular hypertrophy. There is a increased echo reflectance of LV myocardium. Differential diagnosis: Hypertensive heart disease versus infiltrative cardiomyopathy. The left ventricle is hyperdynamic. The ejection fraction is estimated to be 70-75%. The echo findings are consistent with trivial dynamic left ventricular intracavitary obstruction. The right ventricle is normal in size and function. There is mild aortic regurgitation. The IVC is of normal diameter and collapses greater than 50% with a sniff. This suggests a low right atrial pressure of 3 mm Hg. In short axis view behind posterior lateral wall of left ventricle, small loculated pericardial effusion without any echo evidence of tamponade. Liver cyst present. 7. Lower extremity Doppler ultrasound 06/06/2024: No findings of deep venous thrombosis in either lower extremity. Labs 06/07/24 04:30 06/07/24 04:30 Labs: Laboratory Results - last 24 hr 06/08/24 04:10 ABG Sample Site Right radial ABG pH 7.38 ABG pCO2 63.2 H* ABG pO2 66 L ABG HCO3 38 H ABG Total CO2 37 H ABG O2 Saturation 92 L ABG Base Excess 10.3 H Mark Test Positive PENDING SALE TO [facility] Medical History Ascending colon malignant neoplasm Social History household members: significant other Smoking Status: Never smoker alcohol intake: current Discharge Plan Discharge Plan Patient Disposition: Home Provider Discharge Comment: Per Dr. Pedroza: Followup with Dr. Canales (colorectal surgeon at [facility]) in clinic on June 15 at 3:00 p.m. and will likely have a repeat colonoscopy on June 19 with the same doctor. Followup with Home oxygen per RT Followup with PCP 1 week Discharge orders & Medications Prescriptions: Continued metoprolol succinate 200 mg tablet extended release 24 hr 200 mg PO DAILY torsemide 20 mg tablet 60 mg PO DAILY ferrous sulfate 325 mg (65 mg iron) Tablet 325 mg PO DAILY Discontinued amlodipine 10 mg tablet 10 mg PO DAILY aspirin 81 mg Tablet 81 mg PO DAILY Visit Report/Discharge Packet Stand Alone Forms: Patient Portal/API, Stroke Signs & Symptoms Quality MIPS - Admit I confirm the patient?s Advance Care Plan is present, Code status is documented, Surrogate decision maker is in patient?s record [If Yes, STOP here]: Yes MIPS - Meds 'Current medications' to include all prescriptions, [id number] products, herbals, cannabis/cannabidiol products, and vitamin/mineral/dietary (nutritional) supplements. I have utilized all available resources to obtain, update, or review the patient?s current medications. [If Yes, STOP here]: Yes MIPS - DC The patient has a history of heart transplant or Left Ventricular Assist Device (LVAD). If yes, STOP here.: No The patient has current or prior documentation of left ventricular ejection fraction (LVEF) less than or equal to 40%, or moderate or severely depressed left ventricular systolic function.: No A. The patient was prescribed or already taking an Angiotensin-Converting Enzyme (JAYLENE) Inhibitor, or Angiotensin Receptor [place] (ARB).: No B. The patient was prescribed or already taking a beta-everton. [If Yes to Both A & B, STOP here]: Yes Patient not prescribed/taking JAYLENE or ARB, no reason given.: No Patient not prescribed/taking beta-everton, no reason given.: No PROFEE Charge Codes Discharge inpatient/observation: [id number]
== END 2024-06-08 14:02 | disposition home or self-care (01) | DRG 393 ==
LOC: ED 05-29 02:56 → AC 05-29 08:51 → ICU 05-31 17:51
PROVIDERS: Family Medicine; Hospitalist; Internal Medicine; Pharmacist Pharmacist Clinician (PhC)/ Clinical Pharmacy Specialist; Surgery; Admitting Provider Internal Medicine; Emergency Provider Emergency Medicine; Visit Provider Internal Medicine
PROC: 0DJ08ZZ Inspection of Upper Intestinal Tract, Via Natural or Artificial Opening Endoscopic (ICD-10-PCS; principal; 2024-05-31 16:00)
PROC: 0DJD8ZZ Inspection of Lower Intestinal Tract, Via Natural or Artificial Opening Endoscopic (ICD-10-PCS; CPT 45378; 2024-05-31 16:00)
DX: K63.89 Other specified diseases of intestine (principal); G93.41 Metabolic encephalopathy; J96.01 Acute respiratory failure with hypoxia; K92.2 Gastrointestinal hemorrhage, unspecified; N18.4 Chronic kidney disease, stage 4 (severe); D62 Acute posthemorrhagic anemia; Q61.3 Polycystic kidney, unspecified; I69.351 Hemiplegia and hemiparesis following cerebral infarction affecting right dominant side; G47.33 Obstructive sleep apnea (adult) (pediatric); K76.89 Other specified diseases of liver; E66.812 Obesity, class 2; I87.2 Venous insufficiency (chronic) (peripheral); I15.1 Hypertension secondary to other renal disorders; Z23 Encounter for immunization; Z68.38 Body mass index [BMI] 38.0-38.9, adult
CPT/HCPCS: 36415; 36430; 36600; 43239; 45380; 71045; 71260; 74177; 80048; 80053; 82378; 82550; 82805; 83735; 83880; 84484; 85014; 85018; 85025; 85027; 86850; 86900; 86901; 87797; 90471; 90656; 93005; 93306; 93970; 94618; 94640; 94660; 94760; 94762; 96374; 96375; 97163; 97530; 99231; 99232; 99285; P9016; J0330; J1940; J2405; J2470; J2704; J3010; J7613; Q2038; Q9967